=== PATIENT | female | born 1995 | race Caucasian/White ===

== ENCOUNTER 2022-12-26 15:07 | Inpatient (IN) ==
[2022-12-26] MEDS ORDERED: LABETALOL HCL IV 5 MG/ML 20ML IV STA ×5 (16:27→18:44)
[2022-12-26] MEDS ORDERED: LABETALOL HCL IV 5 MG/ML 20ML IV ONE (16:28)
--- NOTE | 2022-12-26 16:44 | History & Physical Report ---
Date of Service December 26, 2022 Assessment & Plan (1) Chronic hypertension affecting : Plan: superimposed now severe range bps. have begun iv labetalol trt. pt to be admitted. induction recommended. labs pending. no significant other sx at this time. when able will plan cx exam to determine mode of induction. pt aware and agreeable. (2) Gestational diabetes: Plan: bsg now and then in labor will eval more frequently. History of Present Illness Chief Complaint: elevated bps in office. Primary Care Provider: NO PCP 27yo at 37 6/7 wks glenis presents to L&D from office with elevated bps at her routine ob checkup in background of CHTN. On labetalol bid, no complaints in office but bp 160-180/100s. Sent for further evaluation here. Bps elevated here as well. Rec moving toward delivery. Labs drawn but not avail. Currently just started with mild NOYOLA. No ruq pain, no n/v, no worsening swelling. No rom, vb. +FM. No ctx. PNC c/b 1. CHTN, started labetalol 100mg bid in 3rd trimester, normal growth u/s 2. GDM--diet controlled. 3. LGSIL pap, colpo done x 2 suspect cin1, plan pp colpo 4. Rh neg 5. Velamentous Cord Insertion PNL rh pos, ri, gbs neg OBH: g1 GYNH: lgsil paps, no stds Allergies Allergy/AdvReac Type Severity Reaction Status Date / Time lactose Allergy Gastrointestinal Verified 12/26/22 15:45 Upset Home Medications Medication Instructions Recorded Confirmed Type prenat.vits,geovanna,ugt-oobl-jphco 1 tab PO DAILY 06/04/22 12/26/22 History aspirin [Baby Aspirin] 81 mg PO DAILY 08/07/22 12/26/22 History acetone (urine) test (Ketone Urine #50 ea 09/02/22 12/26/22 Rx Test strips) blood sugar diagnostic (OptMeduch #150 ea 09/02/22 12/26/22 Rx Verio test strips) blood-glucose meter (OptMeduch #1 ea 09/02/22 12/26/22 Rx Verio Reflect Meter) lancets 33 gauge (OneTouch Delica #150 ea 09/02/22 12/26/22 Rx Lancets) labetalol 100 mg tablet 100 mg PO BID #60 tabs 11/01/22 12/26/22 Rx labetalol PO 11/13/22 12/26/22 History Patient History Social History (Updated 06/04/22 @ 10:16 by Soila Latham) Smoking Status: Never smoker Tobacco Type: Cigarettes Cigarettes Per Day: 7; Second Hand Exposure: No; Do You Dip or Chew Tobacco: No; Tobacco Cessation Education Requested by Patient: No Hx Alcohol Use: No Hx Substance Use: No Preferred Language: Faroese Communication Ability: Effective 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 current occupational status: unemployed Other Information That Helps Us Care for You: No Feels Safe at Home: Yes Safety Concerns: Feels Safe At This Time Assistive Devices: None Review of Systems as per Subjective / HPI Physical Exam Constitutional: WD/WN, vitals as above Respiratory: normal respiratory effort, lungs clear to auscultation Cardiovascular: Rate/Rhythm: regular rate and regular rhythm Gastrointestinal (Abdomen): soft gravid nt no ruq pain, no epig tenderness. Musculoskeletal: no edema nontender calves Neurologic: grossly normal DTRs +1 no clonus Psychiatric: A+Ox3, euthymic affect Genitourinary: OB Exam Monitor Tracing: + external FHT monitor used, + e xternal uterine monitor used (irreg), + category I and + normal FHT variability Results & Data Vital Signs (Past 12 Hours) Vital Signs Temp Pulse Resp BP 12/26/22 15:28 98.4 F 20 12/26/22 16:22 98 H 12/26/22 16:22 195/106 H 12/26/22 16:18 101 H 12/26/22 16:18 183/104 H 12/26/22 15:55 92 H 12/26/22 15:55 182/93 H 12/26/22 15:54 93 H 12/26/22 15:54 198/110 H 12/26/22 15:30 98.1 F 12/26/22 15:23 108 H 164/105 H Coding Level of Care Code None Diagnoses Chronic hypertension affecting O10.919 Gestational diabetes O24.419
[2022-12-26] MEDS ORDERED: LIDOCAINE 1% LOCAL 20 ML VIAL INFIL PRN (16:52)
[2022-12-26] MEDS ORDERED: OXYTOCIN 30 UNITS/500 ML BAG IV PRN ×2 (16:52→17:58)
[2022-12-26 16:55] LABS: Basophils # (auto) 0.03 K/uL (0-0.2); Basophils % (auto) 0.3 %; Eosinophils # (auto) 0.08 K/uL (0-0.50); Eosinophils % (auto) 0.8 %; Hematocrit (blood only) 35.3 % (37.0-47.0); Hemoglobin 12.3 g/dl (12.0-16.0); Immature Granulocytes # (auto) 0.07 K/uL (0.01-0.20); Immature Granulocytes % (auto) 0.7 %; Lymphocytes # (auto) 1.85 K/uL (1.2-3.4); Lymphocytes % (auto) 17.9 %; Mean Corpuscular Hemoglobin 30.7 pg (25.0-34.0); Mean Corpuscular Hgb Conc 34.8 g/dL (32.0-36.0); Mean Platelet Volume 11.3 fL (9.4-12.4); Monocytes # (auto) 0.74 K/uL (0.11-0.59); Monocytes % (auto) 7.2 %; Neutrophils # (auto) 7.57 K/uL (1.40-6.50); Neutrophils % (auto) 73.1 %; Platelet Count 219 K/uL (130-400); RDW Coefficient of Variation 12.8 % (11.5-14.5); RDW Standard Deviation 40.9 fL (36.4-46.3); Red Blood Count 4.01 M/uL (4.20-5.40); White Blood Count 10.34 K/ul (4.8-10.8)
[2022-12-26 17:11] LABS: Albumin Globulin Ratio 1.1 (0.9-2); Albumin Level 3.5 gm/dl (3.4-5.0); BUN Creatinine Ratio 11.6 (10-20); Bilirubin,Total 0.2 mg/dl (0.2-1.0); Creatinine Clr Calc Pharmacy 149.3 ml/min; Est GFR (African American) 139.2 ml/min; Est GFR (Non-African American) 120.1 ml/min; Globulin 3.2 gm/dl (2.5-4.0); Potassium 3.6 mmol/L (3.5-5.1); Total Protein 6.7 gm/dl (6.0-8.3)
[2022-12-26 17:27] LABS: Creatinine Urine Random 28.3 mg/dl; Protein Creatinine Ratio Urine 2.7 (0-0.2)
[2022-12-26] MEDS ORDERED: MAG SULFATE 4GM BOLUS FROM BAG IV ONE (17:32)
[2022-12-26] MEDS ORDERED: MAGNESIUM SULFATE 40GM / WTR 1,000 ML BAG IV ONE (17:35)
[2022-12-26] MEDS: MAGNESIUM SULFATE / WTR 40 GM/1,000 ML BAG IV SCH (17:52)
--- NOTE | 2022-12-26 17:58 | Communication Note ---
Date of Service: December 26, 2022 Patient continues to require iv doses of labetalol. denies granger, visual change. labs reviewed. urine prot/cr ratio elevated and feel dx of superimposed preecla mpsia, severe is met and rec magnesium seizure prophylaxis. reviewed all with pt and partner. she does not want mendez yet and if able to void regularly bedpan/bedside will monitor that way. aware that mendez may be needed. cx is closed and high. had u/s today for her dvp and cephalic. nursing just getting magnesium going and will let me know when ready for mendez ripening balloon and pitocin also planned. fhts categ 1
[2022-12-26] MEDS ORDERED: LIDOCAINE 2% JELLY 5 ML TUBE EXT ONE (19:51)
--- NOTE | 2022-12-26 20:16 | Labor Progress Brief Note ---
Date of Service December 26, 2022 Subjective pt denied complaints. Assessment & Plan (1) Chronic hypertension with superimposed preeclampsia: (2) Gestational diabetes: (3) Encounter for induction of labor: Plan mendez has been placed for cx ripening and pitocin started. fhts categ 1. bps improved. magnesium sulfate iv for seizure prophylaxis. monitor urine output. Admission and Anticipated Discharge Date Admission Date: December 26, 2022 Physical Exam Constitutional: WD/WN, vitals as above Genitourinary: OB Exam Monitor Tracing: + external FHT monitor used, + external uterine monitor used, + category I and + normal FHT variability PROCEDURE: sse cx visualized, grasped on ant lip with ring forcep, mendez through os and balloon inflated with 40cc sterile water. Spec removed, mendez taped to leg. pt deja well. Results & Data Vital Signs (Past 12 Hours) Vital Signs Temp Pulse Resp BP Pulse Ox 12/26/22 19:09 98.2 F 18 12/26/22 19:09 18 12/26/22 18:49 84 177/84 H 12/26/22 18:00 16 12/26/22 17:44 83 174/95 H 12/26/22 15:28 98.4 F 20 12/26/22 20:08 99 12/26/22 20:08 81 12/26/22 20:03 99 12/26/22 20:03 79 12/26/22 19:58 99 12/26/22 19:58 81 12/26/22 19:53 99 12/26/22 19:53 77 12/26/22 19:48 99 12/26/22 19:48 68 12/26/22 19:43 99 12/26/22 19:43 78 12/26/22 19:38 100 12/26/22 19:38 81 12/26/22 19:33 99 12/26/22 19:33 68 12/26/22 19:28 99 12/26/22 19:28 96 H 12/26/22 19:23 99 12/26/22 19:23 82 12/26/22 19:22 78 12/26/22 19:22 135/74 12/26/22 19:18 99 12/26/22 19:18 79 12/26/22 19:13 98 12/26/22 19:13 82 12/26/22 19:08 98 06/29/23 19:08 91 H 12/26/22 19:03 98 12/26/22 19:03 84 12/26/22 18:58 97 12/26/22 18:58 83 12/26/22 18:53 98 12/26/22 18:53 85 12/26/22 18:48 99 12/26/22 18:48 83 12/26/22 18:43 98 12/26/22 18:43 83 12/26/22 18:40 88 12/26/22 18:40 177/84 H 12/26/22 18:38 98 12/26/22 18:38 89 12/26/22 18:33 98 12/26/22 18:33 84 12/26/22 18:28 99 12/26/22 18:28 90 12/26/22 18:23 99 12/26/22 18:23 98 H 12/26/22 18:18 99 12/26/22 18:18 104 H 12/26/22 18:13 99 12/26/22 18:13 93 H 12/26/22 18:08 98 12/26/22 18:08 96 H 12/26/22 18:03 99 12/26/22 18:03 82 12/26/22 18:04 82 12/26/22 18:04 167/92 H 12/26/22 17:58 99 12/26/22 17:58 97 H 12/26/22 17:54 92 H 12/26/22 17:54 191/103 H 12/26/22 17:53 99 12/26/22 17:53 83 12/26/22 17:48 98 12/26/22 17:48 83 12/26/22 17:42 83 12/26/22 17:42 174/95 H 12/26/22 17:30 87 12/26/22 17:30 174/100 H 12/26/22 17:08 88 12/26/22 17:08 175/79 H 12/26/22 17:01 88 12/26/22 17:01 181/88 H 12/26/22 16:56 93 H 12/26/22 16:56 191/91 H 12/26/22 16:48 95 H 12/26/22 16:48 216/113 H 12/26/22 16:38 98 H 12/26/22 16:38 235/119 H 12/26/22 16:22 98 H 12/26/22 16:22 195/106 H 12/26/22 16:18 101 H 12/26/22 16:18 183/104 H 12/26/22 15:55 92 H 12/26/22 15:55 182/93 H 12/26/22 15:54 93 H 12/26/22 15:54 198/110 H 12/26/22 15:30 98.1 F 12/26/22 15:23 108 H 164/105 H Coding Level of Care Code None Diagnoses Chronic hypertension with superimposed preeclampsia O11.9 Gestational diabetes O24.419 Encounter for induction of labor Z34.90 CPT Codes Misx Procedure Codes - 41710 Placement of cervical dilator: 97074 Placement of cervical dilator ([id number]) REVIEW ENGINEER Miscellaneous Codes Misx Procedure Codes 59015 Placement of cervical dilator
[2022-12-26] MEDS ORDERED: LIDOCAINE 2%/EPINEPHRINE 1:200,000 20 ML PF ONE (23:10)
[2022-12-26] MEDS ORDERED: BUPIVACAINE 0.25% PF 30 ML VIAL ONE (23:10)
[2022-12-26] MEDS ORDERED: SODIUM CHLORIDE 0.9% PF INJ 10 ML VIAL ONE (23:10)
[2022-12-26] MEDS ORDERED: fentaNYL citrate PF 100 MCG/2 ML VIAL ONE (23:10)
[2022-12-26] MEDS ORDERED: ePHEDrine sulfate 50 MG/ML AMP ONE (23:10)
[2022-12-26] MEDS ORDERED: fentaNYL 2MCG/ML ROPIVACAINE 1.25MG/ML 100 ML BAG EPI ONE (23:11)
[2022-12-26] MEDS ORDERED: ePHEDrine sulfate 50 MG/ML AMP IV PRN (23:39)
[2022-12-26] MEDS ORDERED: SODIUM CHLORIDE 0.9% PF INJ 10 ML VIAL EPI STA (23:39)
[2022-12-26] MEDS ORDERED: fentaNYL citrate PF 100 MCG/2 ML VIAL EPI PRN (23:39)
[2022-12-26] MEDS ORDERED: NALBUPHINE HCL INJ 10 MG/ML AMP IV PRN (23:39)
[2022-12-26] MEDS ORDERED: SODIUM CHLORIDE 0.9% PF INJ 10 ML VIAL EPI PRN (23:39)
[2022-12-26] MEDS ORDERED: BUPIVACAINE 0.25% PF 30 ML VIAL EPI STA (23:39)
[2022-12-26] MEDS ORDERED: NALOXONE HCL 1 MG in SODIUM CHLORIDE 0.9% 1000ML 1,000 ML IV PRN (23:39)
[2022-12-26] MEDS ORDERED: diphenhydrAMINE 50 MG/ML VIAL IV PRN (23:39)
[2022-12-26] MEDS ORDERED: BUPIVACAINE 0.25% PF 30 ML VIAL EPI PRN (23:39)
[2022-12-26] MEDS ORDERED: LIDOCAINE 2% MPF LOCAL 5 ML VIAL EPI PRN (23:39)
[2022-12-26] MEDS ORDERED: ONDANSETRON INJ 2 MG/ML 2 ML VIAL IV PRN (23:39)
[2022-12-26] MEDS ORDERED: NALOXONE HCL 0.4 MG/1 ML VIAL/CARP IV PRN (23:39)
[2022-12-26] MEDS ORDERED: LIDOCAINE 2%/EPINEPHRINE 1:200,000 20 ML PF EPI STA (23:39)
[2022-12-26] MEDS ORDERED: fentaNYL citrate PF 100 MCG/2 ML VIAL EPI STA (23:39)
[2022-12-26] MEDS ORDERED: ROPIVACAINE 0.5% PF 5 MG/ML 20 ML VIAL EPI PRN (23:39)
--- NOTE | 2022-12-26 23:39 | Anesthesiology Consultation ---
Date of Service December 26, 2022 Assessment & Plan ASA ASA3 Proposed Anesthesia Anesthesia Type: Labor Epidural Risk / Benefits Reviewed With: PT / POA / Parent / Guardian, Accepts Plan and Informed Consent Obtained History Height/Weight Height: 5 ft 4 in Weight: 109.316 kg Allergies Allergy/AdvReac Type Severity Reaction Status Date / Time lactose Allergy Gastrointestinal Verified 12/26/22 15:45 Upset Medications Home Medications Medication Instructions Recorded Confirmed Last Taken prenat.vits,geovanna,ikp-cegn-ajats 1 tab PO DAILY 06/04/22 12/26/22 12/26/22 08:00 aspirin [Baby Aspirin] 81 mg PO DAILY 08/07/22 12/26/22 12/26/22 08:00 acetone (urine) test (Ketone Urine #50 ea 09/02/22 12/26/22 Unknown Test strips) blood sugar diagnostic (OneTouch #150 ea 09/02/22 12/26/22 Unknown Verio test strips) blood-glucose meter (OneTouch #1 ea 09/02/22 12/26/22 Unknown Verio Reflect Meter) lancets 33 gauge (OneTouch Delica #150 ea 09/02/22 12/26/22 Unknown Lancets) labetalol 100 mg tablet 100 mg PO BID #60 tabs 11/01/22 12/26/22 12/26/22 08:00 labetalol PO 11/13/22 12/26/22 Unknown Active Medications Generic Name Dose Route Start Last Admin Trade Name Freq PRN Reason Stop Dose Admin Magnesium Sulfate 40 gm in 1,000 mls @ 50 mls/hr 12/26/22 17:45 12/26/22 19:00 Magnesium Sulfate / Wtr IV 01/25/23 17:44 50 mls/hr .Q20H NANCY Infusion Oxytocin 30 units in 500 mls @ 11 mls/hr 12/26/22 17:58 12/26/22 22:30 Pitocin IV 01/25/23 17:57 0.66 units/hr .Q24H PRN 11 mls/hr Labor Induction/Augmentation Titration Protocol 0.66 UNITS/HR Ropivacaine 100 ml 12/26/22 23:39 12/27/22 00:01 Fentanyl 2mcg/Ml Ropivacaine 1.25mg/Ml 100 Ml Bag EPI 12/27/22 23:38 100 mg PRN PRN Administration Pain R/T Labor Protocol Exercise / Class Metabolic Activity II 4-5 Yardwork/Stairs/Walk up hill Past Anesthesia History No Hx of Anesthesia Complications and No Family Hx of Anesthesia Complications History of PONV No Hx of PONV and No Hx of Motion Sickness Social History Smoking Status: Never smoker Smoking cigarettes per day: 7 Do You Dip or Chew Tobacco: No Hx Alcohol Use: No Hx Substance Use: No Review of Systems denies fever/cough/ colds/ chest pain/ SOB/ DAMIEN denies DAMIEN Physical Exam Vital Signs Last Vital Signs Temp 36.9 C 12/26/22 22:40 Pulse 94 H 12/27/22 00:09 Resp 20 12/26/22 23:15 BP 154/80 H 12/27/22 00:09 Pulse Ox 99 12/27/22 00:08 ENMT Mouth: no TMJ abnormality and no dentition abnormality Thyromental Distance: > or= 3.5 Finger Breadths Mallampati Class: II Neck neck extension not limited Respiratory normal respiratory effort; no respiratory distress Auscultation: lungs clear to auscultation bilaterally Cardiovascular Rate/Rhythm: regular rate and regular rhythm Neurologic moves all extremities Psychiatric Orientation: alert and oriented x 3 Testing Laboratory Results 12/26/22 16:25 12/26/22 16:25 12/27/22 12/26/22 12/26/22 00:09 21:09 17:16 POC Glucose Pending 89 130 H
[2022-12-26] MEDS: LACTATED RINGER'S 1,000 ML IV PRN (23:50)
[2022-12-27] MEDS: fentaNYL 2MCG/ML ROPIVACAINE 1.25MG/ML 100 ML BAG EPI PRN ×3 (00:01→11:24)
[2022-12-27] MEDS: LACTATED RINGER'S 1,000 ML IV PRN ×3 (00:41→11:49)
--- NOTE | 2022-12-27 01:19 | Labor Progress Brief Note ---
Date of Service December 27, 2022 Subjective comfortable in bed Assessment & Plan (1) Chronic hypertension with superimposed preeclampsia: (2) Encounter for induction of labor: (3) Gestational diabetes: Plan will restart pit after 30min of in utero resuscitation if stable. fhts categ 1. good cx change. use mvus of iupc to guide pitocin. pt and partner aware. bps have been stable. preeclampsia precautions reviewed. urine output noted. Admission and Anticipated Discharge Date Admission Date: December 26, 2022 Physical Exam Constitutional: WD/WN, vitals as above Psychiatric: A+Ox3, euthymic affect Genitourinary: Manual OB Exam: + cervical dilation 4 cm, + cervical effacement (75%), + station -2 and + amniotic fluid (arom ) clear OB Exam Monitor Tracing: + external FHT monitor used, + external uterine monitor used, + intra- uterine pressure catheter used (frequent ctx and decel noted, pit stopped. pos change and ivf bolus. ), + category I (early decels?) and + normal FHT variability fhts recovered to 130 mod variability, +scalp stim response and early decels. Results & Data Vital Signs (Past 12 Hours) Vital Signs Temp Pulse Resp BP Pulse Ox 12/27/22 00:30 18 12/26/22 23:15 20 12/26/22 22:15 18 12/26/22 21:15 16 12/26/22 20:10 20 12/26/22 19:09 98.2 F 18 12/26/22 19:09 18 12/26/22 18:49 84 177/84 H 12/26/22 18:00 16 12/26/22 17:44 83 174/95 H 12/26/22 15:28 98.4 F 20 12/27/22 01:08 93 H 98 12/27/22 01:03 109 H 98 12/27/22 01:04 117 H 140/88 12/27/22 00:58 93 H 98 12/27/22 00:53 97 H 98 12/27/22 00:48 94 H 99 12/27/22 00:46 92 H 136/63 12/27/22 00:43 97 H 99 12/27/22 00:42 99 H 136/66 12/27/22 00:38 101 H 99 12/27/22 00:36 102 H 121/64 12/27/22 00:33 104 H 99 12/27/22 00:31 99 H 120/57 L 12/27/22 00:28 100 H 99 12/27/22 00:26 108 H 126/68 12/27/22 00:23 107 H 99 12/27/22 00:21 95 H 125/58 L 12/27/22 00:18 103 H 100 12/27/22 00:16 96 H 135/65 12/27/22 00:13 89 98 12/27/22 00:11 90 149/78 H 12/27/22 00:08 97 H 99 12/27/22 00:09 94 H 154/80 H 12/27/22 00:07 88 142/77 H 12/27/22 00:05 85 133/71 12/27/22 00:03 98 12/27/22 00:03 93 H 12/27/22 00:03 88 138/78 12/27/22 00:00 85 133/70 12/26/22 23:58 99 12/26/22 23:58 89 12/26/22 23:53 98 12/26/22 23:53 84 12/26/22 23:48 99 12/26/22 23:48 97 H 12/26/22 23:43 99 12/26/22 23:43 102 H 12/26/22 23:38 99 12/26/22 23:38 96 H 12/26/22 23:33 99 12/26/22 23:33 97 H 12/26/22 23:31 88 12/26/22 23:31 143/77 H 12/26/22 23:28 99 12/26/22 23:28 90 12/26/22 23:23 100 12/26/22 23:23 94 H 12/26/22 23:18 99 12/26/22 23:18 86 12/26/22 23:13 99 12/26/22 23:13 90 12/26/22 23:08 99 12/26/22 23:08 90 12/26/22 23:03 99 12/26/22 23:03 89 12/26/22 22:58 99 12/26/22 22:58 89 12/26/22 22:53 99 12/26/22 22:53 87 12/26/22 22:48 99 12/26/22 22:48 92 H 12/26/22 22:43 98 12/26/22 22:43 88 12/26/22 22:40 98.4 F 12/26/22 22:38 99 12/26/22 22:38 88 12/26/22 22:33 98 12/26/22 22:33 87 12/26/22 22:33 88 12/26/22 22:33 144/79 H 12/26/22 22:28 98 12/26/22 22:28 91 H 12/26/22 22:23 99 12/26/22 22:23 92 H 12/26/22 22:18 98 12/26/22 22:18 95 H 12/26/22 22:13 98 12/26/22 22:13 93 H 12/26/22 22:08 98 12/26/22 22:08 87 12/26/22 22:03 98 12/26/22 22:03 88 12/26/22 21:58 99 12/26/22 21:58 88 12/26/22 21:53 98 12/26/22 21:53 96 H 12/26/22 21:48 98 12/26/22 21:48 94 H 12/26/22 21:43 99 12/26/22 21:43 101 H 12/26/22 21:38 99 12/26/22 21:38 92 H 12/26/22 21:33 98 12/26/22 21:33 93 H 12/26/22 21:31 90 12/26/22 21:31 142/82 H 12/26/22 21:28 99 12/26/22 21:28 86 12/26/22 21:23 98 12/26/22 21:23 96 H 12/26/22 21:18 99 12/26/22 21:18 91 H 12/26/22 21:13 99 12/26/22 21:13 88 12/26/22 21:08 99 12/26/22 21:08 92 H 12/26/22 21:03 99 12/26/22 21:03 90 12/26/22 20:58 99 12/26/22 20:58 95 H 12/26/22 20:53 100 12/26/22 20:53 84 12/26/22 20:48 99 12/26/22 20:48 95 H 12/26/22 20:43 100 12/26/22 20:43 89 12/26/22 20:38 99 12/26/22 20:38 86 12/26/22 20:33 99 12/26/22 20:33 90 12/26/22 20:28 99 12/26/22 20:28 80 12/26/22 20:23 99 12/26/22 20:23 85 12/26/22 20:22 81 12/26/22 20:22 128/68 12/26/22 20:18 99 12/26/22 20:18 80 12/26/22 20:13 99 12/26/22 20:13 81 12/26/22 20:08 99 12/26/22 20:08 81 12/26/22 20:03 99 12/26/22 20:03 79 12/26/22 19:58 99 12/26/22 19:58 81 12/26/22 19:53 99 12/26/22 19:53 77 12/26/22 19:48 99 12/26/22 19:48 68 12/26/22 19:43 99 12/26/22 19:43 78 12/26/22 19:38 100 12/26/22 19:38 81 12/26/22 19:33 99 12/26/22 19:33 68 12/26/22 19:28 99 12/26/22 19:28 96 H 12/26/22 19:23 99 12/26/22 19:23 82 12/26/22 19:22 78 12/26/22 19:22 135/74 12/26/22 19:18 99 12/26/22 19:18 79 12/26/22 19:13 98 12/26/22 19:13 82 12/26/22 19:08 98 12/26/22 19:08 91 H 12/26/22 19:03 98 12/26/22 19:03 84 12/26/22 18:58 97 12/26/22 18:58 83 12/26/22 18:53 98 12/26/22 18:53 85 12/26/22 18:48 99 12/26/22 18:48 83 12/26/22 18:43 98 12/26/22 18:43 83 12/26/22 18:40 88 12/26/22 18:40 177/84 H 12/26/22 18:38 98 12/26/22 18:38 89 12/26/22 18:33 98 12/26/22 18:33 84 12/26/22 18:28 99 12/26/22 18:28 90 12/26/22 18:23 99 12/26/22 18:23 98 H 12/26/22 18:18 99 12/26/22 18:18 104 H 12/26/22 18:13 99 12/26/22 18:13 93 H 12/26/22 18:08 98 12/26/22 18:08 96 H 12/26/22 18:03 99 12/26/22 18:03 82 12/26/22 18:04 82 12/26/22 18:04 167/92 H 12/26/22 17:58 99 12/26/22 17:58 97 H 12/26/22 17:54 92 H 12/26/22 17:54 191/103 H 12/26/22 17:53 99 12/26/22 17:53 83 12/26/22 17:48 98 12/26/22 17:48 83 12/26/22 17:42 83 12/26/22 17:42 174/95 H 12/26/22 17:30 87 12/26/22 17:30 174/100 H 12/26/22 17:08 88 12/26/22 17:08 175/79 H 12/26/22 17:01 88 12/26/22 17:01 181/88 H 12/26/22 16:56 93 H 12/26/22 16:56 191/91 H 12/26/22 16:48 95 H 12/26/22 16:48 216/113 H 12/26/22 16:38 98 H 12/26/22 16:38 235/119 H 12/26/22 16:22 98 H 12/26/22 16:22 195/106 H 12/26/22 16:18 101 H 12/26/22 16:18 183/104 H 12/26/22 15:55 92 H 12/26/22 15:55 182/93 H 12/26/22 15:54 93 H 12/26/22 15:54 198/110 H 12/26/22 15:30 98.1 F 12/26/22 15:23 108 H 164/105 H Coding Level of Care Code None Diagnoses Chronic hypertension with superimposed preeclampsia O11.9 Encounter for induction of labor Z34.90 Gestational diabetes O24.419
--- NOTE | 2022-12-27 04:16 | Communication Note ---
Date of Service: December 27, 2022 strip review fhts categ 1. mvus approaching 180 and pit at 7. bps normal.
[2022-12-27] MEDS ORDERED: LABETALOL HCL IV 5 MG/ML 20ML IV STA ×2 (05:23→07:44)
--- NOTE | 2022-12-27 06:56 | Communication Note ---
Date of Service: December 27, 2022 pain now rated 7/10 bilat lower abdomen. bolused 8ml of 0.5% bup in divided doses. vss. pain improved.
--- NOTE | 2022-12-27 07:19 | Labor Progress Brief Note ---
Date of Service December 27, 2022 Subjective comfortable. no pain. no granger or visual change that is persistent. Assessment & Plan (1) Chronic hypertension with superimposed preeclampsia: (2) Encounter for induction of labor: (3) Gestational diabetes: Plan inadeq mvu's, will recheck cx when adeq x 2hrs. fhts categ 1. c/w magnesium, c/w pit, good urine output. Admission and Anticipated Discharge Date Admission Date: December 26, 2022 Physical Exam Constitutional: WD/WN, vitals as above Genitourinary: Manual OB Exam: + cervical dilation 4 cm (per nurse) OB Exam Monitor Tracing: + external FHT monitor used, + intra-uterine pressure catheter used (inadequate mvu's pit at 7), + category I and + normal FHT variability Results & Data Vital Signs (Past 12 Hours) Vital Signs Temp Pulse Resp BP Pulse Ox 12/27/22 05:33 95 H 163/89 H 12/27/22 06:15 18 12/27/22 05:20 20 12/27/22 04:35 18 12/27/22 03:07 18 12/27/22 02:20 16 12/27/22 01:30 20 12/27/22 00:30 18 12/26/22 23:15 20 12/26/22 22:15 18 12/26/22 21:15 16 12/26/22 20:10 20 12/27/22 07:13 95 H 98 12/27/22 07:08 92 H 97 12/27/22 07:09 97 H 135/80 12/27/22 07:03 87 97 12/27/22 06:58 97 H 98 12/27/22 06:55 95 H 158/81 H 12/27/22 06:53 97 12/27/22 06:53 94 H 12/27/22 06:53 93 H 147/84 H 12/27/22 06:48 92 H 96 12/27/22 06:43 91 H 96 12/27/22 06:41 90 143/81 H 12/27/22 06:38 89 97 12/27/22 06:33 93 H 98 12/27/22 06:28 90 99 12/27/22 06:23 91 H 98 12/27/22 06:22 88 153/89 H 06/30/23 06:20 88 152/89 H 06/30/23 06:18 90 99 12/27/22 06:13 90 160/91 H 99 12/27/22 06:08 97 H 98 12/27/22 06:03 90 98 12/27/22 06:00 92 H 165/89 H 12/27/22 05:58 91 H 99 12/27/22 05:55 93 H 147/93 H 12/27/22 05:53 91 H 98 12/27/22 05:48 95 H 98 12/27/22 05:49 95 H 157/83 H 12/27/22 05:45 93 H 157/85 H 12/27/22 05:43 95 H 99 12/27/22 05:41 96 H 175/98 H 12/27/22 05:38 97 H 98 12/27/22 05:33 97 H 99 12/27/22 05:28 95 H 99 12/27/22 05:23 94 H 99 12/27/22 05:18 104 H 98 12/27/22 05:19 96 H 163/89 H 12/27/22 05:13 97 H 99 12/27/22 05:09 100 H 174/89 H 12/27/22 05:08 98 H 99 12/27/22 05:03 99 H 99 12/27/22 05:04 96 H 164/90 H 12/27/22 04:58 100 H 98 12/27/22 04:53 98 H 98 12/27/22 04:35 98.1 F 12/27/22 04:50 95 H 148/87 H 12/27/22 04:48 97 H 99 12/27/22 04:43 97 H 99 12/27/22 04:38 96 H 98 12/27/22 04:34 98 H 185/92 H 12/27/22 04:33 96 H 99 12/27/22 04:28 105 H 99 12/27/22 04:23 105 H 98 12/27/22 04:18 107 H 98 12/27/22 04:19 103 H 125/77 12/27/22 04:13 100 H 98 12/27/22 04:08 102 H 97 12/27/22 04:00 18 12/27/22 04:00 18 12/27/22 04:04 105 H 120/66 12/27/22 04:03 106 H 96 12/27/22 03:58 103 H 96 12/27/22 03:53 106 H 96 12/27/22 03:50 104 H 121/64 12/27/22 03:48 106 H 97 12/27/22 03:43 103 H 96 12/27/22 03:38 102 H 97 12/27/22 03:30 20 12/27/22 03:30 20 12/27/22 03:35 103 H 121/67 12/27/22 03:33 109 H 97 12/27/22 03:28 101 H 97 12/27/22 03:23 102 H 97 12/27/22 03:18 107 H 97 12/27/22 03:19 104 H 106/55 L 12/27/22 03:13 105 H 96 12/27/22 03:08 104 H 96 12/27/22 03:03 108 H 97 12/27/22 03:04 107 H 117/57 L 12/27/22 02:58 104 H 96 12/27/22 02:53 102 H 96 12/27/22 02:48 103 H 97 12/27/22 02:49 103 H 119/56 L 12/27/22 02:43 112 H 97 12/27/22 02:38 106 H 97 12/27/22 02:34 102 H 119/58 L 12/27/22 02:33 106 H 97 12/27/22 02:28 108 H 97 12/27/22 02:23 99 H 98 12/27/22 02:20 105 H 133/61 12/27/22 02:18 107 H 97 12/27/22 02:15 98.2 F 12/27/22 02:13 102 H 97 12/27/22 02:08 101 H 96 12/27/22 02:03 101 H 96 12/27/22 02:04 100 H 107/56 L 12/27/22 01:58 107 H 97 12/27/22 01:53 98 H 97 12/27/22 01:48 103 H 97 12/27/22 01:49 98 H 117/59 L 12/27/22 01:43 99 H 97 12/27/22 01:38 98 H 98 12/27/22 01:35 100 H 122/63 12/27/22 01:33 100 H 98 12/27/22 01:28 100 H 98 12/27/22 01:23 102 H 98 12/27/22 01:20 96 H 127/66 12/27/22 01:18 100 H 97 12/27/22 01:13 96 H 98 12/27/22 01:08 93 H 98 12/27/22 01:03 109 H 98 12/27/22 01:04 117 H 140/88 12/27/22 00:58 93 H 98 12/27/22 00:53 97 H 98 12/27/22 00:48 94 H 99 12/27/22 00:46 92 H 136/63 12/27/22 00:43 97 H 99 12/27/22 00:42 99 H 136/66 12/27/22 00:38 101 H 99 12/27/22 00:36 102 H 121/64 12/27/22 00:33 104 H 99 12/27/22 00:31 99 H 120/57 L 12/27/22 00:28 100 H 99 12/27/22 00:26 108 H 126/68 12/27/22 00:23 107 H 99 12/27/22 00:21 95 H 125/58 L 12/27/22 00:18 103 H 100 12/27/22 00:16 96 H 135/65 12/27/22 00:13 89 98 12/27/22 00:11 90 149/78 H 12/27/22 00:08 97 H 99 12/27/22 00:09 94 H 154/80 H 12/27/22 00:07 88 142/77 H 12/27/22 00:05 85 133/71 12/27/22 00:03 98 12/27/22 00:03 93 H 12/27/22 00:03 88 138/78 12/27/22 00:00 85 133/70 12/26/22 23:58 99 12/26/22 23:58 89 12/26/22 23:53 98 12/26/22 23:53 84 12/26/22 23:48 99 12/26/22 23:48 97 H 12/26/22 23:43 99 12/26/22 23:43 102 H 12/26/22 23:38 99 12/26/22 23:38 96 H 12/26/22 23:33 99 12/26/22 23:33 97 H 12/26/22 23:31 88 12/26/22 23:31 143/77 H 12/26/22 23:28 99 12/26/22 23:28 90 12/26/22 23:23 100 12/26/22 23:23 94 H 12/26/22 23:18 99 12/26/22 23:18 86 12/26/22 23:13 99 12/26/22 23:13 90 12/26/22 23:08 99 12/26/22 23:08 90 12/26/22 23:03 99 12/26/22 23:03 89 12/26/22 22:58 99 12/26/22 22:58 89 12/26/22 22:53 99 12/26/22 22:53 87 12/26/22 22:48 99 12/26/22 22:48 92 H 12/26/22 22:43 98 12/26/22 22:43 88 12/26/22 22:40 98.4 F 12/26/22 22:38 99 12/26/22 22:38 88 12/26/22 22:33 98 12/26/22 22:33 87 12/26/22 22:33 88 12/26/22 22:33 144/79 H 12/26/22 22:28 98 12/26/22 22:28 91 H 12/26/22 22:23 99 12/26/22 22:23 92 H 12/26/22 22:18 98 12/26/22 22:18 95 H 12/26/22 22:13 98 12/26/22 22:13 93 H 12/26/22 22:08 98 12/26/22 22:08 87 12/26/22 22:03 98 12/26/22 22:03 88 12/26/22 21:58 99 12/26/22 21:58 88 12/26/22 21:53 98 12/26/22 21:53 96 H 12/26/22 21:48 98 12/26/22 21:48 94 H 12/26/22 21:43 99 12/26/22 21:43 101 H 12/26/22 21:38 99 12/26/22 21:38 92 H 12/26/22 21:33 98 06/29/23 21:33 93 H 12/26/22 21:31 90 12/26/22 21:31 142/82 H 12/26/22 21:28 99 12/26/22 21:28 86 12/26/22 21:23 98 12/26/22 21:23 96 H 12/26/22 21:18 99 12/26/22 21:18 91 H 12/26/22 21:13 99 12/26/22 21:13 88 12/26/22 21:08 99 12/26/22 21:08 92 H 12/26/22 21:03 99 12/26/22 21:03 90 12/26/22 20:58 99 12/26/22 20:58 95 H 12/26/22 20:53 100 12/26/22 20:53 84 12/26/22 20:48 99 12/26/22 20:48 95 H 12/26/22 20:43 100 12/26/22 20:43 89 12/26/22 20:38 99 12/26/22 20:38 86 12/26/22 20:33 99 12/26/22 20:33 90 12/26/22 20:28 99 12/26/22 20:28 80 12/26/22 20:23 99 12/26/22 20:23 85 12/26/22 20:22 81 12/26/22 20:22 128/68 12/26/22 20:18 99 12/26/22 20:18 80 12/26/22 20:13 99 12/26/22 20:13 81 12/26/22 20:08 99 12/26/22 20:08 81 12/26/22 20:03 99 12/26/22 20:03 79 12/26/22 19:58 99 12/26/22 19:58 81 12/26/22 19:53 99 12/26/22 19:53 77 12/26/22 19:48 99 12/26/22 19:48 68 12/26/22 19:43 99 12/26/22 19:43 78 12/26/22 19:38 100 12/26/22 19:38 81 12/26/22 19:33 99 12/26/22 19:33 68 12/26/22 19:28 99 12/26/22 19:28 96 H 12/26/22 19:23 99 12/26/22 19:23 82 12/26/22 19:22 78 12/26/22 19:22 135/74 12/26/22 19:18 99 12/26/22 19:18 79 Coding Level of Care Code None Diagnoses Chronic hypertension with superimposed preeclampsia O11.9 Encounter for induction of labor Z34.90 Gestational diabetes O24.419
[2022-12-27] MEDS ORDERED: ACETAMINOPHEN 325 MG TAB PO ONE (07:44)
[2022-12-27] MEDS: MAGNESIUM SULFATE / WTR 40 GM/1,000 ML BAG IV SCH (08:07)
[2022-12-27] MEDS: LABETALOL HCL 200 MG TAB PO SCH ×2 (08:26→21:05)
[2022-12-27 09:38] LABS: Hematocrit (blood only) 35.5 % (37.0-47.0); Hemoglobin 12.2 g/dl (12.0-16.0); Mean Corpuscular Hemoglobin 30.3 pg (25.0-34.0); Mean Corpuscular Hgb Conc 34.4 g/dL (32.0-36.0); Mean Corpuscular Volume 88.1 fL (80.0-100.0); Mean Platelet Volume 11.2 fL (9.4-12.4); Platelet Count 211 K/uL (130-400); RDW Coefficient of Variation 13.2 % (11.5-14.5); RDW Standard Deviation 42.3 fL (36.4-46.3); Red Blood Count 4.03 M/uL (4.20-5.40); White Blood Count 15.19 K/ul (4.8-10.8)
[2022-12-27 09:39] LABS: Albumin Level 3.3 gm/dl (3.4-5.0); BUN Creatinine Ratio 10.4 (10-20); Bilirubin,Total 0.3 mg/dl (0.2-1.0); Calcium 7.4 mg/dl (8.6-10.3); Creatinine Clr Calc Pharmacy 153.8 ml/min; Est GFR (African American) 140.6 ml/min; Est GFR (Non-African American) 121.3 ml/min; Globulin 3.3 gm/dl (2.5-4.0); Magnesium Therapeutic L&D Only 4.9 mg/dL (4.0-8.0); Potassium 3.9 mmol/L (3.5-5.1); Total Protein 6.6 gm/dl (6.0-8.3)
--- NOTE | 2022-12-27 11:49 | Labor Progress Brief Note ---
Date of Service December 27, 2022 Patient has been managed by Dr. Gus soto and was induced for superimposed preeclampsia with severe features. While in a section for another patient it was noted that there were some late decelerations the Pitocin was stopped I have checked the patient she is 4 cm -2 station her heart rate tracing is now reactive and without deceleration however the contractions are less frequent I offered the patient the option of restarting the Pitocin and seeing if we can try and get her into active labor if the late decelerations keep persisting though we discussed that ultimately a section would be needed I did offer her now but I think it safe to try Pitocin again considering the situation this is what the patient prefers Assessment & Plan Admission and Anticipated Discharge Date Admission Date: December 26, 2022 Results & Data Vital Signs (Past 12 Hours) Vital Signs Temp Pulse Resp BP Pulse Ox 12/27/22 11:15 20 12/27/22 10:15 20 12/27/22 09:15 20 12/27/22 08:36 87 160/80 H 12/27/22 08:06 93 H 158/83 H 12/27/22 08:15 20 12/27/22 07:15 20 12/27/22 05:33 95 H 163/89 H 12/27/22 06:15 18 12/27/22 05:20 20 12/27/22 04:35 18 12/27/22 03:07 18 12/27/22 02:20 16 12/27/22 01:30 20 12/27/22 00:30 18 12/27/22 11:44 84 133/79 12/27/22 11:43 84 97 12/27/22 11:38 86 97 12/27/22 11:33 91 H 98 12/27/22 11:28 83 98 12/27/22 11:23 89 99 12/27/22 11:18 84 99 12/27/22 11:15 84 147/88 H 12/27/22 11:13 87 98 12/27/22 11:08 90 98 12/27/22 11:03 81 98 12/27/22 10:58 87 99 12/27/22 10:53 82 98 12/27/22 10:48 80 98 12/27/22 10:44 98.1 F 84 18 140/83 12/27/22 10:43 85 99 06/30/23 10:38 81 99 12/27/22 10:33 85 96 12/27/22 10:28 85 97 12/27/22 10:23 86 97 12/27/22 10:18 84 96 12/27/22 10:14 84 139/79 12/27/22 10:13 84 97 12/27/22 10:08 91 H 96 12/27/22 10:03 97 H 97 12/27/22 09:58 89 96 12/27/22 09:53 91 H 96 12/27/22 09:48 91 H 96 12/27/22 09:44 92 H 134/79 12/27/22 09:43 91 H 96 12/27/22 09:38 91 H 96 12/27/22 09:33 89 96 12/27/22 09:28 87 97 12/27/22 09:23 94 H 97 12/27/22 09:18 97 H 97 12/27/22 09:13 94 H 97 12/27/22 09:10 92 H 149/79 H 12/27/22 09:08 90 98 12/27/22 09:05 98.2 F 93 H 20 166/85 H 12/27/22 09:03 95 H 98 12/27/22 09:00 93 H 157/85 H 12/27/22 08:58 99 H 98 12/27/22 08:55 86 160/84 H 12/27/22 08:53 93 H 97 12/27/22 08:50 86 152/78 H 12/27/22 08:48 89 97 12/27/22 08:45 86 146/83 H 12/27/22 08:43 87 97 12/27/22 08:40 85 160/76 H 12/27/22 08:38 88 97 12/27/22 08:35 87 158/79 H 12/27/22 08:33 89 97 12/27/22 08:30 87 160/80 H 12/27/22 08:28 90 97 12/27/22 08:25 86 158/78 H 12/27/22 08:23 90 96 12/27/22 08:20 88 156/79 H 12/27/22 08:18 88 96 12/27/22 08:15 85 153/85 H 12/27/22 08:13 88 96 12/27/22 08:10 90 144/84 H 12/27/22 08:08 95 H 96 12/27/22 08:03 92 H 97 12/27/22 07:58 88 97 12/27/22 07:55 87 158/83 H 12/27/22 07:53 92 H 96 12/27/22 07:48 87 97 12/27/22 07:43 90 97 12/27/22 07:38 88 170/94 H 98 12/27/22 07:39 87 165/91 H 12/27/22 07:33 90 98 12/27/22 07:32 88 170/97 H 12/27/22 07:30 91 H 167/106 H 12/27/22 07:28 88 98 12/27/22 07:23 88 98 12/27/22 07:18 96 H 98 12/27/22 07:19 92 H 153/85 H 12/27/22 07:16 94 H 92 12/27/22 07:13 95 H 98 12/27/22 07:08 92 H 97 12/27/22 07:09 98.2 F 97 H 20 135/80 12/27/22 07:03 87 97 12/27/22 06:58 97 H 98 12/27/22 06:55 95 H 158/81 H 12/27/22 06:53 97 12/27/22 06:53 94 H 12/27/22 06:53 93 H 147/84 H 12/27/22 06:48 92 H 96 12/27/22 06:43 91 H 96 12/27/22 06:41 90 143/81 H 12/27/22 06:38 89 97 12/27/22 06:33 93 H 98 12/27/22 06:28 90 99 12/27/22 06:23 91 H 98 12/27/22 06:22 88 153/89 H 12/27/22 06:20 88 152/89 H 12/27/22 06:18 90 99 12/27/22 06:13 90 160/91 H 99 12/27/22 06:08 97 H 98 12/27/22 06:03 90 98 12/27/22 06:00 92 H 165/89 H 12/27/22 05:58 91 H 99 12/27/22 05:55 93 H 147/93 H 12/27/22 05:53 91 H 98 12/27/22 05:48 95 H 98 12/27/22 05:49 95 H 157/83 H 12/27/22 05:45 93 H 157/85 H 12/27/22 05:43 95 H 99 12/27/22 05:41 96 H 175/98 H 12/27/22 05:38 97 H 98 12/27/22 05:33 97 H 99 12/27/22 05:28 95 H 99 12/27/22 05:23 94 H 99 12/27/22 05:18 104 H 98 12/27/22 05:19 96 H 163/89 H 12/27/22 05:13 97 H 99 12/27/22 05:09 100 H 174/89 H 12/27/22 05:08 98 H 99 12/27/22 05:03 99 H 99 12/27/22 05:04 96 H 164/90 H 12/27/22 04:58 100 H 98 12/27/22 04:53 98 H 98 12/27/22 04:35 98.1 F 12/27/22 04:50 95 H 148/87 H 12/27/22 04:48 97 H 99 12/27/22 04:43 97 H 99 12/27/22 04:38 96 H 98 12/27/22 04:34 98 H 185/92 H 12/27/22 04:33 96 H 99 12/27/22 04:28 105 H 99 12/27/22 04:23 105 H 98 12/27/22 04:18 107 H 98 12/27/22 04:19 103 H 125/77 12/27/22 04:13 100 H 98 12/27/22 04:08 102 H 97 12/27/22 04:00 18 12/27/22 04:00 18 12/27/22 04:04 105 H 120/66 12/27/22 04:03 106 H 96 12/27/22 03:58 103 H 96 12/27/22 03:53 106 H 96 12/27/22 03:50 104 H 121/64 12/27/22 03:48 106 H 97 12/27/22 03:43 103 H 96 12/27/22 03:38 102 H 97 12/27/22 03:30 20 12/27/22 03:30 20 12/27/22 03:35 103 H 121/67 12/27/22 03:33 109 H 97 12/27/22 03:28 101 H 97 12/27/22 03:23 102 H 97 12/27/22 03:18 107 H 97 12/27/22 03:19 104 H 106/55 L 12/27/22 03:13 105 H 96 12/27/22 03:08 104 H 96 12/27/22 03:03 108 H 97 12/27/22 03:04 107 H 117/57 L 12/27/22 02:58 104 H 96 12/27/22 02:53 102 H 96 12/27/22 02:48 103 H 97 12/27/22 02:49 103 H 119/56 L 12/27/22 02:43 112 H 97 12/27/22 02:38 106 H 97 12/27/22 02:34 102 H 119/58 L 12/27/22 02:33 106 H 97 12/27/22 02:28 108 H 97 12/27/22 02:23 99 H 98 12/27/22 02:20 105 H 133/61 12/27/22 02:18 107 H 97 12/27/22 02:15 98.2 F 12/27/22 02:13 102 H 97 12/27/22 02:08 101 H 96 12/27/22 02:03 101 H 96 12/27/22 02:04 100 H 107/56 L 12/27/22 01:58 107 H 97 12/27/22 01:53 98 H 97 12/27/22 01:48 103 H 97 12/27/22 01:49 98 H 117/59 L 12/27/22 01:43 99 H 97 12/27/22 01:38 98 H 98 12/27/22 01:35 100 H 122/63 12/27/22 01:33 100 H 98 12/27/22 01:28 100 H 98 12/27/22 01:23 102 H 98 12/27/22 01:20 96 H 127/66 12/27/22 01:18 100 H 97 12/27/22 01:13 96 H 98 12/27/22 01:08 93 H 98 12/27/22 01:03 109 H 98 12/27/22 01:04 117 H 140/88 12/27/22 00:58 93 H 98 12/27/22 00:53 97 H 98 12/27/22 00:48 94 H 99 12/27/22 00:46 92 H 136/63 12/27/22 00:43 97 H 99 12/27/22 00:42 99 H 136/66 12/27/22 00:38 101 H 99 12/27/22 00:36 102 H 121/64 12/27/22 00:33 104 H 99 12/27/22 00:31 99 H 120/57 L 12/27/22 00:28 100 H 99 12/27/22 00:26 108 H 126/68 12/27/22 00:23 107 H 99 12/27/22 00:21 95 H 125/58 L 12/27/22 00:18 103 H 100 12/27/22 00:16 96 H 135/65 12/27/22 00:13 89 98 12/27/22 00:11 90 149/78 H 12/27/22 00:08 97 H 99 12/27/22 00:09 94 H 154/80 H 12/27/22 00:07 88 142/77 H 12/27/22 00:05 85 133/71 12/27/22 00:03 98 12/27/22 00:03 93 H 12/27/22 00:03 88 138/78 12/27/22 00:00 85 133/70 12/26/22 23:58 99 12/26/22 23:58 89 12/26/22 23:53 98 12/26/22 23:53 84 Coding Level of Care Code None Diagnoses
[2022-12-27] MEDS ORDERED: NURSING L&D Epidural Breakthrough Pain Update ONE (12:14)
[2022-12-27] MEDS ORDERED: OXYTOCIN 10 UNITS/ML VIAL ONE (12:31)
[2022-12-27] MEDS ORDERED: fentaNYL citrate PF 100 MCG/2 ML VIAL ONE (12:31)
[2022-12-27] MEDS ORDERED: PHENYLEPHRINE 100MCG/ML 5ML SYR ONE (12:31)
[2022-12-27] MEDS ORDERED: MoRPHine SULFATE PF 1 MG/ML 10 ML AMP/VIAL ONE (12:31)
[2022-12-27] MEDS ORDERED: ONDANSETRON INJ 2 MG/ML 2 ML VIAL ONE (12:31)
--- NOTE | 2022-12-27 12:31 | Labor Progress Brief Note ---
Date of Service December 27, 2022 Late D cells returned after the initiation of Pitocin and there were minimal contractions these are repetitive at this stage we will try to alleviate these but she is remote from delivery her cervix is unfavorable she has been induced since yesterday and now she is throwing persistently D cells with Pitocin I recommend we stop this some proceed to section the patient agrees we discussed increased infection risk was summary has been in labor for a long period of time with section. The patient was counseled to the nature of the procedure including alternatives such as labor. Risks were discussed including bleeding infection injury to bowel bladder ureter vessels and even baby. Deep Vein thrombosis, pulmonary embolus discussed. Breakdown of incision reviewed. Deep vein thrombosis pulmonary embolus hernia and failure of the incision to heal were discussed Patient verbalized understanding of this and was given ample time to ask questions Assessment & Plan Admission and Anticipated Discharge Date Admission Date: December 26, 2022 Results & Data Vital Signs (Past 12 Hours) Vital Signs Temp Pulse Resp BP Pulse Ox 12/27/22 11:15 20 12/27/22 12:15 20 12/27/22 10:15 20 12/27/22 09:15 20 12/27/22 08:36 87 160/80 H 12/27/22 08:06 93 H 158/83 H 12/27/22 08:15 20 12/27/22 07:15 20 12/27/22 05:33 95 H 163/89 H 12/27/22 06:15 18 12/27/22 05:20 20 12/27/22 04:35 18 12/27/22 03:07 18 12/27/22 02:20 16 12/27/22 01:30 20 12/27/22 12:28 89 97 12/27/22 12:27 86 94 12/27/22 12:23 81 96 12/27/22 12:18 81 94 12/27/22 12:14 82 120/68 12/27/22 12:13 79 95 12/27/22 12:08 83 95 12/27/22 12:03 84 96 12/27/22 11:58 84 96 12/27/22 11:53 82 96 12/27/22 11:48 83 97 12/27/22 11:44 84 133/79 12/27/22 11:43 84 97 12/27/22 11:38 86 97 12/27/22 11:33 91 H 98 12/27/22 11:28 83 98 12/27/22 11:23 89 99 12/27/22 11:18 84 99 12/27/22 11:15 84 147/88 H 12/27/22 11:13 87 98 12/27/22 11:08 90 98 12/27/22 11:03 81 98 12/27/22 10:58 87 99 12/27/22 10:53 82 98 12/27/22 10:48 80 98 12/27/22 10:44 98.1 F 84 18 140/83 12/27/22 10:43 85 99 12/27/22 10:38 81 99 12/27/22 10:33 85 96 12/27/22 10:28 85 97 12/27/22 10:23 86 97 12/27/22 10:18 84 96 12/27/22 10:14 84 139/79 12/27/22 10:13 84 97 12/27/22 10:08 91 H 96 12/27/22 10:03 97 H 97 12/27/22 09:58 89 96 12/27/22 09:53 91 H 96 12/27/22 09:48 91 H 96 12/27/22 09:44 92 H 134/79 12/27/22 09:43 91 H 96 12/27/22 09:38 91 H 96 12/27/22 09:33 89 96 12/27/22 09:28 87 97 12/27/22 09:23 94 H 97 12/27/22 09:18 97 H 97 12/27/22 09:13 94 H 97 12/27/22 09:10 92 H 149/79 H 12/27/22 09:08 90 98 12/27/22 09:05 98.2 F 93 H 20 166/85 H 12/27/22 09:03 95 H 98 12/27/22 09:00 93 H 157/85 H 12/27/22 08:58 99 H 98 12/27/22 08:55 86 160/84 H 12/27/22 08:53 93 H 97 12/27/22 08:50 86 152/78 H 12/27/22 08:48 89 97 12/27/22 08:45 86 146/83 H 12/27/22 08:43 87 97 12/27/22 08:40 85 160/76 H 12/27/22 08:38 88 97 12/27/22 08:35 87 158/79 H 12/27/22 08:33 89 97 12/27/22 08:30 87 160/80 H 12/27/22 08:28 90 97 12/27/22 08:25 86 158/78 H 12/27/22 08:23 90 96 12/27/22 08:20 88 156/79 H 12/27/22 08:18 88 96 12/27/22 08:15 85 153/85 H 12/27/22 08:13 88 96 12/27/22 08:10 90 144/84 H 12/27/22 08:08 95 H 96 12/27/22 08:03 92 H 97 12/27/22 07:58 88 97 12/27/22 07:55 87 158/83 H 12/27/22 07:53 92 H 96 12/27/22 07:48 87 97 12/27/22 07:43 90 97 12/27/22 07:38 88 170/94 H 98 12/27/22 07:39 87 165/91 H 12/27/22 07:33 90 98 12/27/22 07:32 88 170/97 H 12/27/22 07:30 91 H 167/106 H 12/27/22 07:28 88 98 12/27/22 07:23 88 98 12/27/22 07:18 96 H 98 12/27/22 07:19 92 H 153/85 H 12/27/22 07:16 94 H 92 12/27/22 07:13 95 H 98 12/27/22 07:08 92 H 97 12/27/22 07:09 98.2 F 97 H 20 135/80 12/27/22 07:03 87 97 12/27/22 06:58 97 H 98 12/27/22 06:55 95 H 158/81 H 12/27/22 06:53 97 12/27/22 06:53 94 H 12/27/22 06:53 93 H 147/84 H 12/27/22 06:48 92 H 96 12/27/22 06:43 91 H 96 12/27/22 06:41 90 143/81 H 12/27/22 06:38 89 97 12/27/22 06:33 93 H 98 12/27/22 06:28 90 99 12/27/22 06:23 91 H 98 12/27/22 06:22 88 153/89 H 12/27/22 06:20 88 152/89 H 12/27/22 06:18 90 99 12/27/22 06:13 90 160/91 H 99 12/27/22 06:08 97 H 98 12/27/22 06:03 90 98 12/27/22 06:00 92 H 165/89 H 12/27/22 05:58 91 H 99 12/27/22 05:55 93 H 147/93 H 12/27/22 05:53 91 H 98 12/27/22 05:48 95 H 98 12/27/22 05:49 95 H 157/83 H 12/27/22 05:45 93 H 157/85 H 12/27/22 05:43 95 H 99 12/27/22 05:41 96 H 175/98 H 12/27/22 05:38 97 H 98 12/27/22 05:33 97 H 99 12/27/22 05:28 95 H 99 12/27/22 05:23 94 H 99 12/27/22 05:18 104 H 98 12/27/22 05:19 96 H 163/89 H 12/27/22 05:13 97 H 99 12/27/22 05:09 100 H 174/89 H 12/27/22 05:08 98 H 99 12/27/22 05:03 99 H 99 12/27/22 05:04 96 H 164/90 H 12/27/22 04:58 100 H 98 12/27/22 04:53 98 H 98 12/27/22 04:35 98.1 F 12/27/22 04:50 95 H 148/87 H 12/27/22 04:48 97 H 99 12/27/22 04:43 97 H 99 12/27/22 04:38 96 H 98 12/27/22 04:34 98 H 185/92 H 12/27/22 04:33 96 H 99 12/27/22 04:28 105 H 99 12/27/22 04:23 105 H 98 12/27/22 04:18 107 H 98 06/30/23 04:19 103 H 125/77 06/30/23 04:13 100 H 98 12/27/22 04:08 102 H 97 12/27/22 04:00 18 12/27/22 04:00 18 12/27/22 04:04 105 H 120/66 12/27/22 04:03 106 H 96 12/27/22 03:58 103 H 96 12/27/22 03:53 106 H 96 12/27/22 03:50 104 H 121/64 12/27/22 03:48 106 H 97 12/27/22 03:43 103 H 96 12/27/22 03:38 102 H 97 12/27/22 03:30 20 12/27/22 03:30 20 12/27/22 03:35 103 H 121/67 12/27/22 03:33 109 H 97 12/27/22 03:28 101 H 97 12/27/22 03:23 102 H 97 12/27/22 03:18 107 H 97 12/27/22 03:19 104 H 106/55 L 12/27/22 03:13 105 H 96 12/27/22 03:08 104 H 96 12/27/22 03:03 108 H 97 12/27/22 03:04 107 H 117/57 L 12/27/22 02:58 104 H 96 12/27/22 02:53 102 H 96 12/27/22 02:48 103 H 97 12/27/22 02:49 103 H 119/56 L 12/27/22 02:43 112 H 97 12/27/22 02:38 106 H 97 12/27/22 02:34 102 H 119/58 L 12/27/22 02:33 106 H 97 12/27/22 02:28 108 H 97 12/27/22 02:23 99 H 98 12/27/22 02:20 105 H 133/61 12/27/22 02:18 107 H 97 12/27/22 02:15 98.2 F 12/27/22 02:13 102 H 97 12/27/22 02:08 101 H 96 12/27/22 02:03 101 H 96 12/27/22 02:04 100 H 107/56 L 12/27/22 01:58 107 H 97 12/27/22 01:53 98 H 97 12/27/22 01:48 103 H 97 06/30/23 01:49 98 H 117/59 L 12/27/22 01:43 99 H 97 12/27/22 01:38 98 H 98 12/27/22 01:35 100 H 122/63 12/27/22 01:33 100 H 98 12/27/22 01:28 100 H 98 12/27/22 01:23 102 H 98 12/27/22 01:20 96 H 127/66 12/27/22 01:18 100 H 97 12/27/22 01:13 96 H 98 12/27/22 01:08 93 H 98 12/27/22 01:03 109 H 98 12/27/22 01:04 117 H 140/88 12/27/22 00:58 93 H 98 12/27/22 00:53 97 H 98 12/27/22 00:48 94 H 99 12/27/22 00:46 92 H 136/63 12/27/22 00:43 97 H 99 12/27/22 00:42 99 H 136/66 12/27/22 00:38 101 H 99 12/27/22 00:36 102 H 121/64 12/27/22 00:33 104 H 99 12/27/22 00:31 99 H 120/57 L Coding Level of Care Code None Diagnoses
[2022-12-27] MEDS ORDERED: NALOXONE HCL 1 MG in SODIUM CHLORIDE 0.9% 1000ML 1,000 ML IV PRN (13:35)
[2022-12-27] MEDS ORDERED: diphenhydrAMINE 50 MG/ML VIAL IV PRN (13:35)
[2022-12-27] MEDS ORDERED: HYDROmorphone INJ 0.5 MG/0.5 ML SYR IV PRN (13:35)
[2022-12-27] MEDS ORDERED: PROMETHAZINE HCL 6.25 MG in SODIUM CHLORIDE 0.9% 50 ML IV PRN (13:35)
[2022-12-27] MEDS ORDERED: LACTATED RINGER'S 500 ML IV PRN (13:35)
[2022-12-27] MEDS ORDERED: MoRPHine SULFATE PF 1 MG/ML 10 ML AMP/VIAL EPI ONE (13:35)
[2022-12-27] MEDS ORDERED: NALBUPHINE HCL INJ 10 MG/ML AMP IV PRN (13:35)
[2022-12-27] MEDS ORDERED: NALOXONE HCL 0.4 MG/1 ML VIAL/CARP IV PRN (13:35)
[2022-12-27] MEDS ORDERED: ePHEDrine sulfate 50 MG/ML AMP IV PRN (13:35)
[2022-12-27] MEDS ORDERED: ONDANSETRON INJ 2 MG/ML 2 ML VIAL IV PRN (13:35)
[2022-12-27] MEDS ORDERED: NALOXONE HCL 0.08 MG in SYRINGE 1.8 ML IV PRN (13:35)
[2022-12-27] MEDS ORDERED: LIDOCAINE 2%/EPINEPHRINE 1:200,000 20 ML PF ONE (13:39)
[2022-12-27] MEDS ORDERED: NO NARCOTICS OR SEDATIVES SCH (13:45)
[2022-12-27] MEDS ORDERED: DC INTRASPINAL MORPHINE SCH (13:45)
[2022-12-27] MEDS ORDERED: SODIUM CHLORIDE 0.9% 1000ML 1,000 ML IV SCH (13:45)
[2022-12-27 13:57] LABS: Base Excess Cord Arterial Bld -1.7 mEq/L (-9-1.8); CO2 Cord Arterial Blood 61 mmHg (39.1-73.5); HCO3 Cord Arterial Blood 27 mmol/L (19.7-28.5); Oxygen Sat Cord Arterial Blood < 60.0 % (<60); PO2 Cord Arterial Blood 9 mmHg (4.1-31.7); pH Cord Arterial Blood 7.25 (7.1-7.38)
[2022-12-27 13:58] LABS: Base Excess Cord Venous Blood -2.2 mEq/L (-7.7-1.9); Cord Venous Blood HCO3 23 mmol/L (18.4-26.8); Cord Venous Blood PCO2 41 mmHg (30.4-57.2); Cord Venous Blood PO2 36 mmHg (14.1-43.3); Cord Venous Blood pH 7.36 (7.20-7.44); O2 Saturation Cord Venous Bld 66.6 % (<68)
--- NOTE | 2022-12-27 13:58 | Operative Report ---
PG Post Operative Report Pre & Post Diagnosis Operation Date: 12/27/22 12:50 Pre-Op Diagnosis: intolerance to labor Pre-eclampia with severe features Post-Op Diagnosis: Same as pre-op I identified the patient and participated in the time-out.: Yes Procedure Operation Date: 12/27/22 12:50 Actual Procedures p Primary Section in LD; Live male child at 1330(Bilateral) - Ran Jerez MD, FACOG Surgeon Ran Jerez MD, FACOG Cotton Dispatcher Dr. Silva Estimated Blood Loss 600 Findings Consistent with Post-Op Diagnosis Specimens Cord gases Cord blood Description of Procedure Regional anesthetic had been given by anesthesia patient was prepped and draped with a leftward tilt preoperative antibiotics had been given in appropriate timing by anesthesiology. Once the prep was allowed to fully dry timeout was performed. Pickups with teeth were used to test the incision area was found to be adequate for incision as the patient did not feel sharp pain. Scalpel was used to make a Pfannenstiel incision on the lower abdomen. We then cut through the subcutaneous fat down to the level of the anterior rectus sheath fascia this was cut in the midline and then extended laterally with the curved Pimentel scissors. At this stage we then placed 2 Gretta clamps on the anterior aspect of the fascia. Using the curved Pimentel's we are able to dissect the fascia superiorly away from the rectus muscles. Care was taken to maintain hemostasis. Gretta clamps were then placed to the inferior aspect of the anterior sheath of the fascia. Fascia was then dissected away from the rectus muscles inferiorly towards the pubic bone. A Gretta was then placed in the midline both inferiorly and superiorly. This was to allow exposure by retraction rectus muscles were in the midline with were then able to cut through the peritoneum and then enter the peritoneal cavity. Opening was enlarged to allow exposure of the peritoneal cavity both superiorly and inferiorly. Once adequate space was obtained a bladder retractor was placed to expose the lower segment Metzenbaums were used to dissect the b ladder flap inferiorly away from the uterus. This was done sharply bladder retractor was then repositioned to expose the lower segment of the uterus Fresh scalpel was used to make a low transverse incision on the uterus. Uterus was then entered bluntly with the operators finger, membranes ruptured and the opening was enlarged using the operators fingers bluntly pulling superiorly and inferiorly to allow exposure. Baby was delivered by first flexion of the head elevation of the head out of the pelvis and then pressure by the maintenance assistant on the maternal abdomen. Baby's head was then delivered mouth and then nares were suctioned and then using gentle traction the baby was fully delivered. Live vigorous infant. Fluid was clear cord clamped and cut cord gases obtained cord blood obtained baby handed to pediatrics. Placenta removed was removed with traction we ensure the entire placenta was removed with a moist lap sponge into the uterus Uterus was examined there was a very small anterior subserosal fibroid on the fundus less than 2 cm the adnexa were completely normal Note there was baby was in occiput posterior position there was no nuchal cord Uterus was then exteriorized. IV Pitocin had been started by anesthesia tone improved there were no extensions the uterus was then closed using 0 Monocryl in a 2 layer closure the first layer closed in a running locked fashion from left to right and then a second closure from left to right in a running nonlocked fashion. At this stage hemostasis was excellent. Uterus was placed back in the peritoneal cavity with suction irrigation out and inspection of the uterus at this stage revealed excellent hemostasis Retractors were removed urine color was clear at this stage of the case we inspected the rectus muscles they were hemostatic fascia was closed with 0 Vicryl subcutaneous fat was irrigated and closed with 3-0 Vicryl skin closed with 4-0 subcuticular Monocryl I attest to the content of the Intraoperative Record and any orders documented therein. Any exceptions are noted below. OB Procedure Charges 29103
[2022-12-27] MEDS ORDERED: DIPHTHERIA/TETANUS/PERTUSSIS Vaccine (Tdap, Age 7+yrs) 0.5mL SYR/VL IM ONE (14:39)
[2022-12-27] MEDS ORDERED: BENZOCAINE 20% AER SPR 82.5 GM CAN EXT PRN (14:39)
[2022-12-27] MEDS ORDERED: MAGNESIUM HYDROXIDE SUSP 30 ML UDC PO PRN (14:39)
[2022-12-27] MEDS ORDERED: HYDROCORTISONE ACETATE 25 MG SUPP PR PRN (14:39)
[2022-12-27] MEDS ORDERED: SENNA 8.6 MG TAB PO PRN (14:39)
[2022-12-27] MEDS ORDERED: LACTATED RINGER'S 1,000 ML IV SCH (14:39)
--- NOTE | 2022-12-27 15:45 | Anesthesia Procedure Note ---
Date of Service December 27, 2022 Anesthesia Post Epidural Note Vital Signs Vital Signs: Temp Pulse Resp BP Pulse Ox 36.6 C 85 20 149/97 H 97 12/27/22 15:10 12/27/22 15:41 12/27/22 15:40 12/27/22 15:36 12/27/22 15:41 Pain Intensity Abdomen: Pain Intensity: 0 Notes Mental Status: alert / awake / arousable and participated in evaluation Patient Amnestic to Procedure: No Nausea / Vomiting: adequately controlled Pain: adequately controlled Airway Patency, RR, SpO2: stable & adequate BP & HR: stable & adequate Hydration State: stable & adequate Neuraxial Anesthesia: was administered and sensory block is resolving Anesthetic Complications: no major complications apparent and Pt Satisfied with anesthetic care Epidural: Removed without complications and With tip intact
--- NOTE | 2022-12-27 15:46 | Anesthesiology Progress Note ---
Date of Service December 27, 2022 Anesthesia Post Procedure Vital Signs Vital Signs: Temp Pulse Resp BP Pulse Ox 12/27/22 15:40 20 12/27/22 15:10 36.6 C 20 12/27/22 13:00 20 12/27/22 15:00 79 20 98 12/27/22 14:50 20 12/27/22 14:40 82 20 143/85 H 97 12/27/22 14:10 36.6 C 20 12/27/22 11:15 20 12/27/22 12:15 20 12/27/22 10:15 20 12/27/22 09:15 20 12/27/22 08:36 87 160/80 H 12/27/22 08:06 93 H 158/83 H 12/27/22 08:15 20 12/27/22 07:15 20 12/27/22 05:33 95 H 163/89 H 12/27/22 06:15 18 12/27/22 05:20 20 12/27/22 04:35 18 12/27/22 03:07 18 12/27/22 02:20 16 12/27/22 01:30 20 12/27/22 00:30 18 12/26/22 23:15 20 12/26/22 22:15 18 12/26/22 21:15 16 12/26/22 20:10 20 12/26/22 19:09 36.8 C 18 12/26/22 19:09 18 12/26/22 18:49 84 177/84 H 12/26/22 18:00 16 12/26/22 17:44 83 174/95 H 12/27/22 15:41 85 97 12/27/22 15:36 84 149/97 H 98 12/27/22 15:31 83 98 12/27/22 15:26 88 97 12/27/22 15:21 73 97 12/27/22 15:16 98 12/27/22 15:16 74 12/27/22 15:16 76 138/75 12/27/22 15:11 78 98 12/27/22 15:06 76 136/72 98 12/27/22 15:01 98 12/27/22 15:01 79 12/27/22 15:01 81 92 12/27/22 14:56 78 152/90 H 98 12/27/22 14:51 81 98 12/27/22 14:46 98 12/27/22 14:46 83 12/27/22 14:46 83 145/88 H 12/27/22 14:41 80 98 12/27/22 14:36 82 143/85 H 97 12/27/22 14:31 76 97 12/27/22 14:26 75 132/77 97 12/27/22 14:21 80 98 12/27/22 14:16 73 98 12/27/22 14:11 81 97 12/27/22 14:06 79 97 12/27/22 14:05 78 121/70 12/27/22 13:03 86 97 12/27/22 12:58 87 98 12/27/22 12:53 87 99 12/27/22 12:48 92 H 99 12/27/22 12:43 85 98 12/27/22 12:44 85 140/87 12/27/22 12:38 83 97 12/27/22 12:33 86 97 12/27/22 12:28 89 97 12/27/22 12:27 86 94 12/27/22 12:23 81 96 12/27/22 12:18 81 94 12/27/22 12:14 82 20 120/68 12/27/22 12:13 79 95 12/27/22 12:08 83 95 12/27/22 12:03 84 96 12/27/22 11:58 84 96 12/27/22 11:53 82 96 12/27/22 11:48 83 97 12/27/22 11:44 84 133/79 12/27/22 11:43 84 97 12/27/22 11:38 86 97 12/27/22 11:33 91 H 98 12/27/22 11:28 83 98 12/27/22 11:23 89 99 12/27/22 11:18 84 99 12/27/22 11:15 84 147/88 H 12/27/22 11:13 87 98 12/27/22 11:08 90 98 12/27/22 11:03 81 98 12/27/22 10:58 87 99 12/27/22 10:53 82 98 12/27/22 10:48 80 98 12/27/22 10:44 36.7 C 84 18 140/83 12/27/22 10:43 85 99 12/27/22 10:38 81 99 12/27/22 10:33 85 96 12/27/22 10:28 85 97 12/27/22 10:23 86 97 12/27/22 10:18 84 96 12/27/22 10:14 84 139/79 12/27/22 10:13 84 97 12/27/22 10:08 91 H 96 12/27/22 10:03 97 H 97 12/27/22 09:58 89 96 12/27/22 09:53 91 H 96 12/27/22 09:48 91 H 96 12/27/22 09:44 92 H 134/79 12/27/22 09:43 91 H 96 12/27/22 09:38 91 H 96 12/27/22 09:33 89 96 12/27/22 09:28 87 97 12/27/22 09:23 94 H 97 12/27/22 09:18 97 H 97 12/27/22 09:13 94 H 97 12/27/22 09:10 92 H 149/79 H 12/27/22 09:08 90 98 12/27/22 09:05 36.8 C 93 H 20 166/85 H 12/27/22 09:03 95 H 98 12/27/22 09:00 93 H 157/85 H 12/27/22 08:58 99 H 98 12/27/22 08:55 86 160/84 H 12/27/22 08:53 93 H 97 12/27/22 08:50 86 152/78 H 12/27/22 08:48 89 97 12/27/22 08:45 86 146/83 H 12/27/22 08:43 87 97 12/27/22 08:40 85 160/76 H 12/27/22 08:38 88 97 12/27/22 08:35 87 158/79 H 12/27/22 08:33 89 97 12/27/22 08:30 87 160/80 H 12/27/22 08:28 90 97 12/27/22 08:25 86 158/78 H 12/27/22 08:23 90 96 12/27/22 08:20 88 156/79 H 12/27/22 08:18 88 96 12/27/22 08:15 85 153/85 H 12/27/22 08:13 88 96 12/27/22 08:10 90 144/84 H 12/27/22 08:08 95 H 96 12/27/22 08:03 92 H 97 12/27/22 07:58 88 97 12/27/22 07:55 87 158/83 H 12/27/22 07:53 92 H 96 12/27/22 07:48 87 97 12/27/22 07:43 90 97 12/27/22 07:38 88 170/94 H 98 12/27/22 07:39 87 165/91 H 12/27/22 07:33 90 98 12/27/22 07:32 88 170/97 H 12/27/22 07:30 91 H 167/106 H 12/27/22 07:28 88 98 12/27/22 07:23 88 98 12/27/22 07:18 96 H 98 12/27/22 07:19 92 H 153/85 H 12/27/22 07:16 94 H 92 12/27/22 07:13 95 H 98 12/27/22 07:08 92 H 97 12/27/22 07:09 36.8 C 97 H 20 135/80 12/27/22 07:03 87 97 12/27/22 06:58 97 H 98 12/27/22 06:55 95 H 158/81 H 12/27/22 06:53 97 12/27/22 06:53 94 H 12/27/22 06:53 93 H 147/84 H 12/27/22 06:48 92 H 96 12/27/22 06:43 91 H 96 12/27/22 06:41 90 143/81 H 12/27/22 06:38 89 97 12/27/22 06:33 93 H 98 12/27/22 06:28 90 99 12/27/22 06:23 91 H 98 12/27/22 06:22 88 153/89 H 12/27/22 06:20 88 152/89 H 12/27/22 06:18 90 99 12/27/22 06:13 90 160/91 H 99 12/27/22 06:08 97 H 98 12/27/22 06:03 90 98 12/27/22 06:00 92 H 165/89 H 12/27/22 05:58 91 H 99 12/27/22 05:55 93 H 147/93 H 12/27/22 05:53 91 H 98 12/27/22 05:48 95 H 98 12/27/22 05:49 95 H 157/83 H 12/27/22 05:45 93 H 157/85 H 12/27/22 05:43 95 H 99 12/27/22 05:41 96 H 175/98 H 12/27/22 05:38 97 H 98 12/27/22 05:33 97 H 99 12/27/22 05:28 95 H 99 12/27/22 05:23 94 H 99 12/27/22 05:18 104 H 98 12/27/22 05:19 96 H 163/89 H 12/27/22 05:13 97 H 99 12/27/22 05:09 100 H 174/89 H 12/27/22 05:08 98 H 99 12/27/22 05:03 99 H 99 12/27/22 05:04 96 H 164/90 H 12/27/22 04:58 100 H 98 12/27/22 04:53 98 H 98 12/27/22 04:35 36.7 C 12/27/22 04:50 95 H 148/87 H 12/27/22 04:48 97 H 99 12/27/22 04:43 97 H 99 12/27/22 04:38 96 H 98 12/27/22 04:34 98 H 185/92 H 12/27/22 04:33 96 H 99 12/27/22 04:28 105 H 99 12/27/22 04:23 105 H 98 12/27/22 04:18 107 H 98 12/27/22 04:19 103 H 125/77 12/27/22 04:13 100 H 98 12/27/22 04:08 102 H 97 12/27/22 04:00 18 12/27/22 04:00 18 12/27/22 04:04 105 H 120/66 12/27/22 04:03 106 H 96 12/27/22 03:58 103 H 96 12/27/22 03:53 106 H 96 12/27/22 03:50 104 H 121/64 12/27/22 03:48 106 H 97 12/27/22 03:43 103 H 96 12/27/22 03:38 102 H 97 12/27/22 03:30 20 12/27/22 03:30 20 12/27/22 03:35 103 H 121/67 12/27/22 03:33 109 H 97 12/27/22 03:28 101 H 97 12/27/22 03:23 102 H 97 12/27/22 03:18 107 H 97 12/27/22 03:19 104 H 106/55 L 12/27/22 03:13 105 H 96 12/27/22 03:08 104 H 96 12/27/22 03:03 108 H 97 12/27/22 03:04 107 H 117/57 L 12/27/22 02:58 104 H 96 12/27/22 02:53 102 H 96 12/27/22 02:48 103 H 97 12/27/22 02:49 103 H 119/56 L 12/27/22 02:43 112 H 97 12/27/22 02:38 106 H 97 12/27/22 02:34 102 H 119/58 L 12/27/22 02:33 106 H 97 12/27/22 02:28 108 H 97 12/27/22 02:23 99 H 98 12/27/22 02:20 105 H 133/61 12/27/22 02:18 107 H 97 12/27/22 02:15 36.8 C 12/27/22 02:13 102 H 97 12/27/22 02:08 101 H 96 12/27/22 02:03 101 H 96 12/27/22 02:04 100 H 107/56 L 12/27/22 01:58 107 H 97 12/27/22 01:53 98 H 97 12/27/22 01:48 103 H 97 12/27/22 01:49 98 H 117/59 L 12/27/22 01:43 99 H 97 12/27/22 01:38 98 H 98 12/27/22 01:35 100 H 122/63 12/27/22 01:33 100 H 98 12/27/22 01:28 100 H 98 12/27/22 01:23 102 H 98 12/27/22 01:20 96 H 127/66 12/27/22 01:18 100 H 97 12/27/22 01:13 96 H 98 12/27/22 01:08 93 H 98 12/27/22 01:03 109 H 98 12/27/22 01:04 117 H 140/88 12/27/22 00:58 93 H 98 12/27/22 00:53 97 H 98 12/27/22 00:48 94 H 99 12/27/22 00:46 92 H 136/63 12/27/22 00:43 97 H 99 12/27/22 00:42 99 H 136/66 12/27/22 00:38 101 H 99 12/27/22 00:36 102 H 121/64 12/27/22 00:33 104 H 99 12/27/22 00:31 99 H 120/57 L 12/27/22 00:28 100 H 99 12/27/22 00:26 108 H 126/68 12/27/22 00:23 107 H 99 12/27/22 00:21 95 H 125/58 L 12/27/22 00:18 103 H 100 12/27/22 00:16 96 H 135/65 12/27/22 00:13 89 98 12/27/22 00:11 90 149/78 H 12/27/22 00:08 97 H 99 12/27/22 00:09 94 H 154/80 H 12/27/22 00:07 88 142/77 H 12/27/22 00:05 85 133/71 12/27/22 00:03 98 12/27/22 00:03 93 H 12/27/22 00:03 88 138/78 12/27/22 00:00 85 133/70 12/26/22 23:58 99 12/26/22 23:58 89 12/26/22 23:53 98 12/26/22 23:53 84 12/26/22 23:48 99 12/26/22 23:48 97 H 12/26/22 23:43 99 12/26/22 23:43 102 H 12/26/22 23:38 99 12/26/22 23:38 96 H 12/26/22 23:33 99 12/26/22 23:33 97 H 12/26/22 23:31 88 12/26/22 23:31 143/77 H 12/26/22 23:28 99 12/26/22 23:28 90 12/26/22 23:23 100 12/26/22 23:23 94 H 12/26/22 23:18 99 12/26/22 23:18 86 12/26/22 23:13 99 12/26/22 23:13 90 12/26/22 23:08 99 12/26/22 23:08 90 12/26/22 23:03 99 12/26/22 23:03 89 12/26/22 22:58 99 12/26/22 22:58 89 12/26/22 22:53 99 12/26/22 22:53 87 12/26/22 22:48 99 12/26/22 22:48 92 H 12/26/22 22:43 98 12/26/22 22:43 88 12/26/22 22:40 36.9 C 12/26/22 22:38 99 12/26/22 22:38 88 12/26/22 22:33 98 12/26/22 22:33 87 12/26/22 22:33 88 12/26/22 22:33 144/79 H 12/26/22 22:28 98 12/26/22 22:28 91 H 12/26/22 22:23 99 12/26/22 22:23 92 H 12/26/22 22:18 98 12/26/22 22:18 95 H 12/26/22 22:13 98 12/26/22 22:13 93 H 12/26/22 22:08 98 12/26/22 22:08 87 12/26/22 22:03 98 12/26/22 22:03 88 12/26/22 21:58 99 12/26/22 21:58 88 12/26/22 21:53 98 12/26/22 21:53 96 H 12/26/22 21:48 98 12/26/22 21:48 94 H 12/26/22 21:43 99 12/26/22 21:43 101 H 12/26/22 21:38 99 12/26/22 21:38 92 H 12/26/22 21:33 98 12/26/22 21:33 93 H 12/26/22 21:31 90 12/26/22 21:31 142/82 H 12/26/22 21:28 99 12/26/22 21:28 86 12/26/22 21:23 98 12/26/22 21:23 96 H 12/26/22 21:18 99 06/29/23 21:18 91 H 12/26/22 21:13 99 12/26/22 21:13 88 12/26/22 21:08 99 12/26/22 21:08 92 H 12/26/22 21:03 99 12/26/22 21:03 90 12/26/22 20:58 99 12/26/22 20:58 95 H 12/26/22 20:53 100 12/26/22 20:53 84 12/26/22 20:48 99 12/26/22 20:48 95 H 12/26/22 20:43 100 12/26/22 20:43 89 12/26/22 20:38 99 12/26/22 20:38 86 12/26/22 20:33 99 12/26/22 20:33 90 12/26/22 20:28 99 12/26/22 20:28 80 12/26/22 20:23 99 12/26/22 20:23 85 12/26/22 20:22 81 12/26/22 20:22 128/68 12/26/22 20:18 99 12/26/22 20:18 80 12/26/22 20:13 99 12/26/22 20:13 81 12/26/22 20:08 99 12/26/22 20:08 81 12/26/22 20:03 99 12/26/22 20:03 79 12/26/22 19:58 99 12/26/22 19:58 81 12/26/22 19:53 99 12/26/22 19:53 77 12/26/22 19:48 99 12/26/22 19:48 68 12/26/22 19:43 99 12/26/22 19:43 78 12/26/22 19:38 100 12/26/22 19:38 81 12/26/22 19:33 99 12/26/22 19:33 68 12/26/22 19:28 99 12/26/22 19:28 96 H 12/26/22 19:23 99 12/26/22 19:23 82 12/26/22 19:22 78 12/26/22 19:22 135/74 12/26/22 19:18 99 12/26/22 19:18 79 12/26/22 19:13 98 12/26/22 19:13 82 12/26/22 19:08 98 12/26/22 19:08 91 H 12/26/22 19:03 98 12/26/22 19:03 84 12/26/22 18:58 97 12/26/22 18:58 83 12/26/22 18:53 98 12/26/22 18:53 85 12/26/22 18:48 99 12/26/22 18:48 83 12/26/22 18:43 98 12/26/22 18:43 83 12/26/22 18:40 88 12/26/22 18:40 177/84 H 12/26/22 18:38 98 12/26/22 18:38 89 12/26/22 18:33 98 12/26/22 18:33 84 12/26/22 18:28 99 12/26/22 18:28 90 12/26/22 18:23 99 12/26/22 18:23 98 H 12/26/22 18:18 99 12/26/22 18:18 104 H 12/26/22 18:13 99 12/26/22 18:13 93 H 12/26/22 18:08 98 12/26/22 18:08 96 H 12/26/22 18:03 99 12/26/22 18:03 82 12/26/22 18:04 82 12/26/22 18:04 167/92 H 12/26/22 17:58 99 12/26/22 17:58 97 H 12/26/22 17:54 92 H 12/26/22 17:54 191/103 H 12/26/22 17:53 99 12/26/22 17:53 83 12/26/22 17:48 98 12/26/22 17:48 83 12/26/22 17:42 83 12/26/22 17:42 174/95 H 12/26/22 17:30 87 12/26/22 17:30 174/100 H 12/26/22 17:08 88 12/26/22 17:08 175/79 H 12/26/22 17:01 88 12/26/22 17:01 181/88 H 12/26/22 16:56 93 H 12/26/22 16:56 191/91 H 12/26/22 16:48 95 H 12/26/22 16:48 216/113 H 12/26/22 16:38 98 H 12/26/22 16:38 235/119 H 12/26/22 16:22 98 H 12/26/22 16:22 195/106 H 12/26/22 16:18 101 H 12/26/22 16:18 183/104 H 12/26/22 15:55 92 H 12/26/22 15:55 182/93 H 12/26/22 15:54 93 H 12/26/22 15:54 198/110 H Pain Intensity Abdomen: Pain Intensity: 0 Transfer of Care Handoff Completed per policy Notes Mental Status: alert / awake / arousable and participated in evaluation Patient Amnestic to Procedure: No Nausea / Vomiting: adequately controlled Pain: adequately controlled Airway Patency, RR, SpO2: stable & adequate BP & HR: stable & adequate Hydration State: stable & adequate Neuraxial Anesthesia: was administered and sensory block is resolving Anesthetic Complications: no major complications apparent and Pt Satisfied with anesthetic care
[2022-12-27] MEDS: OXYTOCIN 20 UNITS in LACTATED RINGER'S 1,000 ML IV SCH (16:39)
[2022-12-27] MEDS: KETOROLAC 30 MG/ML VIAL IV PRN ×2 (16:41→22:58)
[2022-12-27 16:56] LABS: Hematocrit (blood only) 33.6 % (37.0-47.0); Hemoglobin 11.7 g/dl (12.0-16.0); Mean Corpuscular Hemoglobin 30.9 pg (25.0-34.0); Mean Corpuscular Hgb Conc 34.8 g/dL (32.0-36.0); Mean Corpuscular Volume 88.7 fL (80.0-100.0); Mean Platelet Volume 11.2 fL (9.4-12.4); Platelet Count 220 K/uL (130-400); RDW Coefficient of Variation 13.1 % (11.5-14.5); RDW Standard Deviation 42.5 fL (36.4-46.3); Red Blood Count 3.79 M/uL (4.20-5.40); White Blood Count 15.78 K/ul (4.8-10.8)
[2022-12-27] MEDS: SIMETHICONE 80 MG CHEW PO SCH ×2 (17:10→21:05)
[2022-12-27 17:13] LABS: Albumin Globulin Ratio 1.1 (0.9-2); Albumin Level 3.2 gm/dl (3.4-5.0); BUN Creatinine Ratio 9.5 (10-20); Bilirubin,Total 0.3 mg/dl (0.2-1.0); Calcium 7.1 mg/dl (8.6-10.3); Creatinine Clr Calc Pharmacy 139.2 ml/min; Est GFR (African American) 129.6 ml/min; Est GFR (Non-African American) 111.8 ml/min; Globulin 2.9 gm/dl (2.5-4.0); Magnesium Therapeutic L&D Only 5.1 mg/dL (4.0-8.0); Total Protein 6.1 gm/dl (6.0-8.3)
[2022-12-27] MEDS ORDERED: SODIUM CHLORIDE 0.9% 250 ML IV PRN (19:16)
[2022-12-27] MEDS: DOCUSATE SODIUM 100 MG CAP PO SCH (21:05)
[2022-12-27 23:03] LABS: Hematocrit (blood only) 31.4 % (37.0-47.0); Hemoglobin 10.9 g/dl (12.0-16.0); Mean Corpuscular Hemoglobin 31.1 pg (25.0-34.0); Mean Corpuscular Hgb Conc 34.7 g/dL (32.0-36.0); Mean Corpuscular Volume 89.7 fL (80.0-100.0); Mean Platelet Volume 10.9 fL (9.4-12.4); Platelet Count 210 K/uL (130-400); RDW Coefficient of Variation 13.2 % (11.5-14.5)
[2022-12-27 23:39] LABS: BUN Creatinine Ratio 9.1 (10-20); Bilirubin,Total 0.4 mg/dl (0.2-1.0); Calcium 6.8 mg/dl (8.6-10.3); Creatinine Clr Calc Pharmacy 133.8 ml/min; Est GFR (African American) 123.5 ml/min; Est GFR (Non-African American) 106.6 ml/min; Globulin 2.9 gm/dl (2.5-4.0); Magnesium Therapeutic L&D Only 5.3 mg/dL (4.0-8.0); Potassium 3.9 mmol/L (3.5-5.1); Total Protein 5.9 gm/dl (6.0-8.3)
[2022-12-28] MEDS: MAGNESIUM SULFATE / WTR 40 GM/1,000 ML BAG IV SCH (02:42)
[2022-12-28 03:37] LABS: Hematocrit (blood only) 30.6 % (37.0-47.0); Hemoglobin 10.5 g/dl (12.0-16.0); Mean Corpuscular Hemoglobin 30.9 pg (25.0-34.0); Mean Corpuscular Hgb Conc 34.3 g/dL (32.0-36.0); Mean Platelet Volume 10.8 fL (9.4-12.4); Platelet Count 189 K/uL (130-400); RDW Coefficient of Variation 13.2 % (11.5-14.5); RDW Standard Deviation 43.6 fL (36.4-46.3); White Blood Count 13.13 K/ul (4.8-10.8)
[2022-12-28 03:56] LABS: BUN Creatinine Ratio 8.8 (10-20); Bilirubin,Total 0.4 mg/dl (0.2-1.0); Calcium 6.8 mg/dl (8.6-10.3); Creatinine Clr Calc Pharmacy 128.8 ml/min; Est GFR (African American) 117.9 ml/min; Est GFR (Non-African American) 101.8 ml/min; Globulin 2.9 gm/dl (2.5-4.0); Magnesium Therapeutic L&D Only 5.3 mg/dL (4.0-8.0); Potassium 3.8 mmol/L (3.5-5.1); Total Protein 5.9 gm/dl (6.0-8.3)
[2022-12-28] MEDS: OXYTOCIN 20 UNITS in LACTATED RINGER'S 1,000 ML IV SCH (05:17)
[2022-12-28] MEDS ORDERED: PROMETHAZINE HCL 25 MG in SODIUM CHLORIDE 0.9% 50 ML IV PRN (07:35)
[2022-12-28] MEDS ORDERED: KETOROLAC 30 MG/ML VIAL IV PRN (07:35)
[2022-12-28] MEDS ORDERED: ONDANSETRON INJ 2 MG/ML 2 ML VIAL IV PRN (07:35)
[2022-12-28] MEDS ORDERED: diphenhydrAMINE 50 MG/ML VIAL IV PRN (07:35)
[2022-12-28] MEDS ORDERED: diphenhydrAMINE Capsule 25 MG CAP PO PRN (07:35)
[2022-12-28] MEDS: FERROUS SULFATE 325 MG TAB PO SCH (08:23)
[2022-12-28] MEDS: DOCUSATE SODIUM 100 MG CAP PO SCH ×2 (08:23→21:01)
[2022-12-28] MEDS: SIMETHICONE 80 MG CHEW PO SCH ×4 (08:23→21:01)
[2022-12-28] MEDS: PRENATAL VITAMIN 1 TAB PO SCH (08:23)
[2022-12-28] MEDS: LABETALOL HCL 200 MG TAB PO SCH ×3 (08:24→21:00)
--- NOTE | 2022-12-28 08:24 | Obstetrical Progress Note ---
Date of Service <Jason SanfordKelly Boyle DO - Last Filed: 12/28/22 08:24> December 28, 2022 Assessment & Plan <Jason SanfordKelly Boyle DO - Last Filed: 12/28/22 08:24> (1) state: (2) Chronic hypertension with superimposed preeclampsia: (3) Gestational diabetes: Plan - Feels well today. - needs 24 hours of mag s/p C section on 12/27 with preeclampsia. Then can advance patient's diet and ambulate. - Mendez in place. - Pain well controlled with PRN pain meds. - Routine care -- OOB, ambulation, diet progression as tolerated - After discharge will have 6 week follow-up with Dr. Jerez. Day #:: 1 <Hernan Barahona MD - Last Filed: 12/30/22 08:06> (1) state: (2) Chronic hypertension with superimposed preeclampsia: (3) Gestational diabetes: Subjective <Jasonchris Boyle DO - Last Filed: 12/28/22 08:24> Ambulation: limited ambulation Voiding: mendez catheter in place Passing Gas:: Yes Diet Tolerance:: regular diet Lochia:: Small Feeding Type:: breast feeding Current Pain Level(1-10): 2 Review of Systems Denies fever, chills, sweats Denies shortness of breath, difficulty breathing, chest pain, palpitations, chest pressure. Denies breast pain. Denies dysuria. Denies headache or changes in vision. Physical Exam <Jasonchris Boyle DO - Last Filed: 12/28/22 08:24> General: Alert, oriented. No acute distress. Cardiac: Regular rate and rhythm, no murmurs/rubs/gallops. Respiratory: Clear to auscultation bilaterally a/p, no wheezes/rales/rhonchi. No increased work of breathing. Symmetrical chest rise. No respiratory distress. Abdomen: Soft, nontender, nondistended. Bowel sounds present. Uterus: Uterine fundus firm, palpable 1 cm below umbilicus. Lower Extremities: No lower extremity edema or swelling. No deep calf pain. Jorge A's negative bilaterally. Results & Data <Jasonchris Boyle DO - Last Filed: 12/28/22 08:24> Vital Signs (Past 12 Hours) Vital Signs Temp Pulse Resp BP Pulse Ox 12/28/22 08:00 20 99 12/28/22 08:00 36.9 C 20 12/28/22 08:00 20 12/28/22 07:00 20 95 12/28/22 07:00 20 12/28/22 06:00 18 12/28/22 05:00 18 12/28/22 02:53 37.1 C 18 12/28/22 02:53 18 12/28/22 02:00 18 12/27/22 23:00 18 12/27/22 22:00 18 12/27/22 21:00 18 12/28/22 00:00 18 12/28/22 01:00 16 12/27/22 23:15 36.8 C 18 12/28/22 08:13 98 H 96 12/28/22 08:08 93 H 97 12/28/22 08:03 87 99 12/28/22 08:01 96 H 166/85 H 12/28/22 07:58 95 H 97 12/28/22 07:53 93 H 93 12/28/22 07:48 92 H 94 12/28/22 07:43 95 H 96 12/28/22 07:41 93 H 136/80 12/28/22 07:38 94 H 95 12/28/22 07:33 93 H 96 12/28/22 07:28 91 H 94 12/28/22 07:23 91 H 95 12/28/22 07:21 89 132/76 12/28/22 07:18 96 H 94 12/28/22 07:13 95 H 94 12/28/22 07:08 94 H 96 12/28/22 07:07 94 H 94 12/28/22 07:03 97 H 93 12/28/22 07:01 95 H 134/77 12/28/22 06:58 92 H 94 12/28/22 06:54 96 H 93 12/28/22 06:53 98 H 94 12/28/22 06:48 94 12/28/22 06:48 95 H 12/28/22 06:48 95 H 94 12/28/22 06:43 94 12/28/22 06:43 93 H 12/28/22 06:43 93 H 94 12/28/22 06:41 90 120/72 07/01/23 06:38 90 94 12/28/22 06:35 89 94 12/28/22 06:33 88 95 12/28/22 06:30 87 94 12/28/22 06:28 95 H 95 12/28/22 06:23 91 H 94 12/28/22 06:22 90 94 12/28/22 06:21 88 150/70 H 12/28/22 06:19 84 194/95 H 12/28/22 06:18 96 H 96 12/28/22 06:17 86 94 12/28/22 06:13 90 93 12/28/22 06:11 92 H 93 12/28/22 06:08 91 H 95 12/28/22 06:06 86 93 12/28/22 06:03 90 94 12/28/22 05:58 91 H 94 12/28/22 05:56 88 94 12/28/22 05:53 93 H 96 12/28/22 05:48 93 H 96 12/28/22 05:46 92 H 94 12/28/22 05:43 93 H 95 12/28/22 05:38 93 H 96 12/28/22 05:33 89 97 12/28/22 05:28 100 H 95 12/28/22 05:23 90 95 12/28/22 05:18 94 H 97 12/28/22 05:13 97 H 96 12/28/22 05:09 97 H 94 12/28/22 05:08 99 H 95 12/28/22 05:03 92 H 96 12/28/22 04:58 93 H 96 12/28/22 04:53 91 H 96 12/28/22 04:48 92 H 97 12/28/22 04:43 90 95 12/28/22 04:38 92 H 95 12/28/22 04:33 95 H 95 12/28/22 04:28 98 H 96 12/28/22 04:23 94 H 97 12/28/22 04:20 83 94 12/28/22 04:18 84 94 12/28/22 04:14 82 94 12/28/22 04:13 82 95 12/28/22 04:08 91 H 96 12/28/22 04:06 82 94 12/28/22 04:03 89 95 12/28/22 04:00 85 18 94 12/28/22 03:58 83 94 12/28/22 03:54 82 93 12/28/22 03:53 79 94 12/28/22 03:48 94 12/28/22 03:48 80 12/28/22 03:48 83 94 12/28/22 03:43 81 95 12/28/22 03:42 81 94 12/28/22 03:38 83 95 12/28/22 03:33 82 95 12/28/22 03:28 86 96 12/28/22 03:23 86 96 12/28/22 03:18 84 95 12/28/22 03:13 84 96 12/28/22 03:08 85 97 12/28/22 03:03 88 96 12/28/22 02:58 84 96 12/28/22 02:53 82 96 12/28/22 02:48 80 97 12/28/22 02:49 80 155/74 H 12/28/22 02:46 80 88 L 12/28/22 02:41 83 98 12/28/22 02:39 83 91 12/28/22 02:36 97 H 100 12/28/22 02:32 80 92 12/28/22 02:31 80 100 12/28/22 02:26 79 100 12/28/22 02:21 87 100 12/28/22 02:16 81 100 12/28/22 02:11 88 100 12/28/22 02:06 81 100 12/28/22 02:07 80 133/78 12/28/22 02:01 83 100 12/28/22 01:56 85 100 12/28/22 01:51 93 H 100 12/28/22 01:46 86 100 12/28/22 01:41 77 96 12/28/22 01:36 79 97 12/28/22 01:33 78 91 12/28/22 01:31 79 96 12/28/22 01:26 80 97 12/28/22 01:21 86 95 12/28/22 01:20 91 H 93 12/28/22 01:16 78 100 12/28/22 01:11 83 100 12/28/22 01:06 78 100 12/28/22 01:07 77 126/74 12/28/22 01:01 74 100 12/28/22 00:56 82 100 12/28/22 00:51 78 100 12/28/22 00:46 81 100 12/28/22 00:41 81 100 12/28/22 00:36 84 100 12/28/22 00:31 81 100 12/28/22 00:26 83 100 12/28/22 00:21 77 100 12/28/22 00:16 75 100 12/28/22 00:11 87 100 12/28/22 00:06 88 100 12/28/22 00:07 84 127/68 12/28/22 00:01 81 100 12/27/22 23:56 83 98 12/27/22 23:51 86 97 12/27/22 23:46 84 96 12/27/22 23:41 79 96 12/27/22 23:36 83 96 12/27/22 23:31 83 97 12/27/22 23:26 79 96 12/27/22 23:21 81 97 12/27/22 23:16 81 96 12/27/22 23:11 79 96 12/27/22 23:06 85 97 12/27/22 23:07 82 141/81 H 12/27/22 23:01 80 98 12/27/22 22:56 84 99 12/27/22 22:51 82 98 12/27/22 22:46 84 96 12/27/22 22:41 90 96 12/27/22 22:36 89 96 12/27/22 22:34 86 94 12/27/22 22:31 85 94 12/27/22 22:29 92 H 94 12/27/22 22:26 92 H 95 12/27/22 22:21 87 95 12/27/22 22:20 83 94 12/27/22 22:16 84 94 12/27/22 22:15 85 94 12/27/22 22:11 82 94 12/27/22 22:09 79 94 12/27/22 22:06 82 94 12/27/22 22:07 81 115/70 12/27/22 22:03 83 94 12/27/22 22:01 85 95 12/27/22 21:56 87 96 12/27/22 21:51 87 96 12/27/22 21:46 85 96 12/27/22 21:41 83 97 12/27/22 21:36 91 H 99 12/27/22 21:31 96 12/27/22 21:31 80 12/27/22 21:31 81 94 12/27/22 21:26 95 12/27/22 21:26 77 12/27/22 21:26 80 94 12/27/22 21:21 79 94 12/27/22 21:20 79 94 12/27/22 21:16 80 94 12/27/22 21:15 78 94 12/27/22 21:11 77 96 12/27/22 21:06 92 H 97 12/27/22 21:07 90 134/85 12/27/22 21:05 88 126/75 12/27/22 21:01 94 12/27/22 21:01 81 12/27/22 21:01 78 94 12/27/22 20:56 78 94 12/27/22 20:53 78 94 12/27/22 20:51 78 95 12/27/22 20:46 76 96 12/27/22 20:41 78 96 12/27/22 20:36 84 95 12/27/22 20:31 81 98 12/27/22 20:26 85 98 12/27/22 20:21 86 97 <Hernan Barahona MD - Last Filed: 12/30/22 08:06> Co-Signing Physician Notes Patient seen with resident and agree with the above findings and plan. Continue mg for 24 hours postdelivery. Blood pressures mostly mild range and patient denying any preeclampsia symptoms. Labs normal this a.m. Resident Activity Tracking <Jason Boyle DO - Last Filed: 12/28/22 08:24> Resident Involvement: Resident Care Provided Care Provided: OB Delivery
[2022-12-28] MEDS: oxyCODONE/ACETAMINOPHEN 5mg/325mg TAB PO PRN ×3 (09:24→23:47)
[2022-12-28 09:25] LABS: Hemoglobin 11.1 g/dl (12.0-16.0); Mean Corpuscular Hgb Conc 34.7 g/dL (32.0-36.0); Mean Corpuscular Volume 89.4 fL (80.0-100.0); Mean Platelet Volume 10.7 fL (9.4-12.4); Platelet Count 210 K/uL (130-400); RDW Coefficient of Variation 13.2 % (11.5-14.5); RDW Standard Deviation 43.2 fL (36.4-46.3); Red Blood Count 3.58 M/uL (4.20-5.40); White Blood Count 12.27 K/ul (4.8-10.8)
[2022-12-28 09:41] LABS: Albumin Level 3.1 gm/dl (3.4-5.0); BUN Creatinine Ratio 8.3 (10-20); Bilirubin,Total 0.3 mg/dl (0.2-1.0); Calcium 6.7 mg/dl (8.6-10.3); Creatinine Clr Calc Pharmacy 143.1 ml/min; Est GFR (Non-African American) 115.6 ml/min; Globulin 3.1 gm/dl (2.5-4.0); Magnesium Therapeutic L&D Only 5.1 mg/dL (4.0-8.0); Potassium 3.6 mmol/L (3.5-5.1); Total Protein 6.2 gm/dl (6.0-8.3)
[2022-12-28 15:09] LABS: Hematocrit (blood only) 31.2 % (37.0-47.0); Hemoglobin 10.9 g/dl (12.0-16.0); Mean Corpuscular Hemoglobin 31.1 pg (25.0-34.0); Mean Corpuscular Hgb Conc 34.9 g/dL (32.0-36.0); Mean Corpuscular Volume 89.1 fL (80.0-100.0); Mean Platelet Volume 10.2 fL (9.4-12.4); Platelet Count 210 K/uL (130-400); RDW Coefficient of Variation 13.2 % (11.5-14.5); RDW Standard Deviation 42.7 fL (36.4-46.3); White Blood Count 12.26 K/ul (4.8-10.8)
[2022-12-28 15:27] LABS: Albumin Globulin Ratio 1.1 (0.9-2); Albumin Level 3.2 gm/dl (3.4-5.0); BUN Creatinine Ratio 7.4 (10-20); Bilirubin,Total 0.3 mg/dl (0.2-1.0); Creatinine Clr Calc Pharmacy 127.2 ml/min; Est GFR (African American) 116.2 ml/min; Est GFR (Non-African American) 100.2 ml/min; Magnesium Therapeutic L&D Only 4.2 mg/dL (4.0-8.0); Potassium 4.1 mmol/L (3.5-5.1); Total Protein 6.2 gm/dl (6.0-8.3)
[2022-12-28] MEDS ORDERED: bisacodyL 5 MG TABEC PO SCH (20:00)
[2022-12-28] MEDS: IBUPROFEN 600 MG TAB PO PRN (23:48)
[2022-12-29] MEDS: IBUPROFEN 600 MG TAB PO PRN ×4 (05:41→20:31)
[2022-12-29] MEDS: oxyCODONE/ACETAMINOPHEN 5mg/325mg TAB PO PRN ×4 (05:42→20:31)
[2022-12-29 07:16] LABS: Hematocrit (blood only) 29.6 % (37.0-47.0); Hemoglobin 10.2 g/dl (12.0-16.0)
[2022-12-29] MEDS: SIMETHICONE 80 MG CHEW PO SCH ×4 (08:23→20:30)
[2022-12-29] MEDS: LABETALOL HCL 200 MG TAB PO SCH ×2 (08:23→13:25)
[2022-12-29] MEDS: FERROUS SULFATE 325 MG TAB PO SCH (08:23)
[2022-12-29] MEDS: DOCUSATE SODIUM 100 MG CAP PO SCH ×2 (08:23→20:30)
[2022-12-29] MEDS: PRENATAL VITAMIN 1 TAB PO SCH (08:23)
--- NOTE | 2022-12-29 08:42 | Obstetrical Progress Note ---
Date of Service December 29, 2022 Assessment & Plan (1) state: Plan Breasteeding. Incision CDI. POD#2 doing well. Increased labetalol 200mg to TID dosing yesterday, will continue to monitor BPs throughout the day today. Anticipate DC home tomorrow. Subjective Ambulation: ambulating normally Voiding: no voiding problems Diet Tolerance:: regular diet Lochia:: Moderate Review of Systems All systems reviewed & are unremarkable except as noted in HPI & below Physical Exam Constitutional WD/WN, vitals as above no acute distress Respiratory normal respiratory effort Cardiovascular Rate/Rhythm: regular rate and regular rhythm Gastrointestinal (Abdomen) Inspection/Auscultation: abdomen normal to inspection; abdomen not distended Percussion/Palpation: abdomen soft Genitourinary OB Exam Abdomen: + fundal height Fundus: + firm; not tender Results & Data Vital Signs (Past 12 Hours) Vital Signs Temp Pulse Resp BP Pulse Ox O2 Del Method 12/29/22 07:30 36.8 C 78 16 155/94 H 98 Room Air 12/29/22 03:25 36.7 C 80 18 148/85 H 97 Room Air 12/28/22 23:55 36.9 C 84 18 144/94 H 97 Room Air 12/28/22 21:00 Room Air 12/28/22 21:00 37.0 C 104 H 16 139/90 98 Room Air
[2022-12-29] MEDS ORDERED: bisacodyL 10 MG SUPP PR PRN (13:55)
[2022-12-29] MEDS ORDERED: LABETALOL HCL 100 MG TAB PO ONE (15:03)
[2022-12-29] MEDS ORDERED: LABETALOL HCL 300 MG TAB PO SCH (21:00)
[2022-12-30] MEDS: IBUPROFEN 600 MG TAB PO PRN ×4 (00:04→20:54)
[2022-12-30] MEDS: oxyCODONE/ACETAMINOPHEN 5mg/325mg TAB PO PRN ×4 (00:04→20:55)
--- NOTE | 2022-12-30 07:44 | Obstetrical Progress Note ---
Date of Service December 30, 2022 Assessment & Plan (1) state: POD#3 doing well. Incision PATTY clean. BPs remain elevated - will further increase labetalol to 400mg Q8h. She is agreeable. Anticipate DC home today, will continue to monitor BPs throughout the day today. Rx percocet sent to pharmacy. Needs 1w office visit THIS FRIDAY for PATTY dressing removal and BP check, patient aware. Subjective Ambulation: ambulating normally Voiding: no voiding problems Diet Tolerance:: regular diet Lochia:: Moderate Review of Systems All systems reviewed & are unremarkable except as noted in HPI & below Physical Exam Constitutional WD/WN, vitals as above no acute distress Respiratory normal respiratory effort Cardiovascular Rate/Rhythm: regular rate and regular rhythm Gastrointestinal (Abdomen) Inspection/Auscultation: abdomen normal to inspection; abdomen not distended Percussion/Palpation: abdomen soft Genitourinary OB Exam Abdomen: + fundal height Fundus: + firm; not tender Results & Data Vital Signs (Past 12 Hours) Vital Signs Temp Pulse Resp BP Pulse Ox O2 Del Method 12/30/22 04:00 158/90 H 12/29/22 23:15 36.6 C 82 16 151/88 H 98 Room Air 12/29/22 20:27 36.8 C 91 H 20 150/90 H
[2022-12-30] MEDS: LABETALOL HCL 200 MG TAB PO SCH ×3 (07:55→20:54)
[2022-12-30] MEDS: PRENATAL VITAMIN 1 TAB PO SCH (07:56)
[2022-12-30] MEDS: SIMETHICONE 80 MG CHEW PO SCH ×4 (07:56→20:54)
[2022-12-30] MEDS: DOCUSATE SODIUM 100 MG CAP PO SCH ×2 (07:56→20:55)
[2022-12-30] MEDS: FERROUS SULFATE 325 MG TAB PO SCH (07:56)
[2022-12-30] MEDS ORDERED: LABETALOL HCL 200 MG TAB PO SCH (09:00)
--- NOTE | 2022-12-30 09:55 | Obstetrical Progress Note ---
Date of Service December 30, 2022 Assessment & Plan (1) state: Plan suspect this is area of skin to skin rubbing causing this issue due to obesity and folds of skin. rec trying to keep dry, offered options and pt elects gauze. may need to apply vaseline to gauze to prevent sticking but will try plain first. otherwise dressing seems intact. they were concerned that beeping of device earlier today was due to defect in dressing. not beeping now, so will monitor. can apply new PATTY dressing if needed. Admission and Anticipated Discharge Date Admission Date: December 26, 2022 Subjective ctsp due to concern for blistering of skin on right lower edge of patty dressing and that patty Physical Exam Constitutional: WD/WN, vitals as above Gastrointestinal (Abdomen): incision dressed with patty dressing. skin irritation, erythema and small blister at right lower corner where dressing is peeled off. not evidence along edge of dressing in other areas. Results & Data Vital Signs (Past 12 Hours) Vital Signs Temp Pulse Pulse Resp BP Pulse Ox O2 Del Method 12/30/22 07:45 98.1 F 84 20 152/99 H Room Air 12/30/22 04:00 158/90 H 12/29/22 23:15 97.9 F 82 16 151/88 H 98 Room Air PG Care Time/CCT Total # of Minutes Spent Total Time Spent with Patient: Total time spent is greater than 50% in coordination of care (as documented) at patient's floor/unit and/or counseling patient: Coding Level of Care Code None Diagnoses state Z39.2
[2022-12-31] MEDS: oxyCODONE/ACETAMINOPHEN 5mg/325mg TAB PO PRN ×2 (05:38→09:48)
[2022-12-31] MEDS: IBUPROFEN 600 MG TAB PO PRN ×2 (05:38→09:47)
[2022-12-31] MEDS: LABETALOL HCL 200 MG TAB PO SCH ×2 (06:30→14:07)
--- NOTE | 2022-12-31 06:41 | Obstetrical Progress Note ---
Date of Service December 31, 2022 Assessment & Plan (1) state: (2) Chronic hypertension with superimposed preeclampsia: Plan 27 yo POD4 from [facility], doing well -Meeting all pp milestones. BPs better on labetalol 400mg po q8 -Rh neg, baby rh neg/rubella immune -f/u 6 weeks for appt, this friday for bryant removal and BP check. Subjective Ambulation: ambulating normally Voiding: no voiding problems Passing Gas:: Yes Diet Tolerance:: regular diet Lochia:: Small Pain well managed with medication Review of Systems Denies fevers, chills, n/v, NOYOLA, CP, SOB Physical Exam Constitutional WD/WN, vitals as above no acute distress Respiratory normal respiratory effort, lungs clear to auscultation Cardiovascular RRR, no murmur, no edema Gastrointestinal (Abdomen) Percussion/Palpation: abdomen soft; abdomen nontender fundus firm at umbilicus and NT. Bryant dressing intact w/o skin abnormalities Musculoskeletal BLE symmetric, nonerythematous, nontender Results & Data Vital Signs (Past 12 Hours) Vital Signs Temp Pulse Resp BP O2 Del Method 12/31/22 06:20 140/91 12/31/22 00:45 Room Air 12/31/22 00:45 97.9 F 88 18 135/85 Room Air 12/30/22 22:31 84 142/95 H 12/30/22 21:00 80 151/98 H
[2022-12-31] MEDS: DOCUSATE SODIUM 100 MG CAP PO SCH (09:46)
[2022-12-31] MEDS: SIMETHICONE 80 MG CHEW PO SCH ×2 (09:47→14:06)
[2022-12-31] MEDS: FERROUS SULFATE 325 MG TAB PO SCH (09:47)
[2022-12-31] MEDS: PRENATAL VITAMIN 1 TAB PO SCH (09:47)
--- NOTE | 2023-01-01 18:46 | Discharge Summary ---
Date of Service January 01, 2023 Admission HPI Per Admitting Provider 27yo at 37 6/7 wks glenis presents to L&D from office with elevated bps at her routine ob checkup in background of CHTN. On labetalol bid, no complaints in office but bp 160-180/100s. Sent for further evaluation here. Bps elevated here as well. Rec moving toward delivery. Labs drawn but not avail. Currently just started with mild NOYOLA. No ruq pain, no n/v, no worsening swelling. No rom, vb. +FM. No ctx. PNC c/b 1. CHTN, started labetalol 100mg bid in 3rd trimester, normal growth u/s 2. GDM--diet controlled. 3. LGSIL pap, colpo done x 2 suspect cin1, plan pp colpo 4. Rh neg 5. Velamentous Cord Insertion PNL rh pos, ri, gbs neg OBH: g1 GYNH: lgsil paps, no stds Discharge Data Consultations 12/26/22 16:52 Consult Anesthesiology Stat Procedures Performed Operation Date: 12/27/22 12:50 Actual Procedures p Primary Section in LD; Live male child at 1330(Bilateral) - Ran Jerez MD, [facility] [place] Hospital Course (1) state: (2) Chronic hypertension with superimposed preeclampsia: Plan 27 yo POD4 from [facility], doing well -Meeting all pp milestones. BPs better on labetalol 400mg po q8 -Rh neg, baby rh neg/rubella immune -f/u 6 weeks for appt, this friday for bryant removal and BP check. Supervising Physician Co-Signing Physician Notes Patient seen with resident and agree with the above findings and plan. Continue mg for 24 hours postdelivery. Blood pressures mostly mild range and patient denying any preeclampsia symptoms. Labs normal this a.m. Coding Level of Care Code None Diagnoses state Z39.2 Chronic hypertension with superimposed preeclampsia O11.9
== END 2022-12-31 18:47 | disposition home or self-care (01) | DRG 788 ==
LOC: OPB 15:07 → 4S1 15:08 → 4E2 12-28 16:55
DX: Z3A.38 38 weeks gestation of pregnancy; O24.420 Gestational diabetes mellitus in childbirth, diet controlled; Z37.0 Single live birth; Z79.82 Long term (current) use of aspirin; O11.4 Pre-existing hypertension with pre-eclampsia, complicating childbirth; O77.8 Labor and delivery complicated by other evidence of fetal stress

== ENCOUNTER 2024-05-05 17:24 | Inpatient (IN) ==
--- NOTE | 2024-05-05 17:46 | Emergency Department Note ---
Impression & Plan Pre-eclampsia Admission ED Provider Note HPI: History obtained from patient. The patient is a 28-year-old G2, P1 female with history of preeclampsia, presents the emergency department with chief complaint of high blood pressure. Patient states earlier today when she was at home she took her blood pressure and it was 180/120, she denies any headache, denies any visual changes, denies any abdominal pain. Patient states that her pressure was again persistently high on recheck and therefore she contacted her REFLESHER provider's office. She states that the nurse at the office spoke with Dr. Barahona and she was advised to come to the emergency department to be assessed. On arrival here to the ED the patient is hypertensive at 210/145, she otherwise appears to be in no acute distress on my initial evaluation. ROS: - Per HPI Differential Diagnosis: Preeclampsia, hypertensive urgency, hypertensive emergency, amongst other potential pathologies. *Outpatient medications and allergy history reviewed. PE: General: Alert HEENT: Normocephalic, trachea midline Eyes: Extraocular eye movement is intact, no scleral erythema Pulmonary: Clear to auscultation bilaterally, no wheezing Cardio: Regular rate and rhythm GI: Abdomen is soft to palpation : No suprapubic tenderness MSK: No evidence of trauma or malformation of the extremities, no edema Skin: No evidence of rash Neuro: Alert, no focal deficits Psychiatric: Cooperative INDEPENDENT INTERPRETATIONS: specialty molder: (As interpreted by myself): - An order was placed for continuous cardiac monitoring - Patient was noted to be in sinus rhythm with rate 104 EKG: (As interpreted by myself): Rate: 105 Rhythm: Sinus tachycardia Intervals: Within normal limits ST changes: No ST elevation Time: 1742 Interventions provided in ED: -IV labetalol, IV magnesium, oral nifedipine Medical Decision Making: Patient appears well on arrival although she is hypertensive, IV was established and lab work obtained, patient was placed on appliance sales associate. Patient was ordered IV labetalol shortly after my assessment for her initial blood pressure. Blood pressure did downtrend here in the ED with IV labetalol and oral nifedipine, she was started on IV magnesium as well. Lab work was obtained but does not show any evidence of any critical findings. Patient's blood pressure did downtrend here nicely in the ER with medication to 139/87. I did discuss the patient's presentation with the on-call [place] REFLESHER provider, Dr. Jerez, and he did evaluate the patient here in the ER, he will admit the patient to the labor and delivery floor for further management and observation. Patient was transferred in stable condition for further care. Consultants/Discussions held with other healthcare providers: -REFLESHER, Dr. Jerez * CRITICAL CARE TIME: ( 38 ) minutes -Management of patient in the second trimester with vital signs concerning for preeclampsia requiring IV medications for blood pressure improvement, time spent at the bedside, interpretation of diagnostic studies, discussion with specialty physician/REFLESHER and arrangement of admission Diagnosis: 1. Preeclampsia, acute Disposition: Admission Yasmani Valle DO Emergency Medicine Past Med/Surg History Problem List (Updated 05/05/24 @ 19:49 by Yasmani Valle DO) Pre-eclampsia (Acute) Gestational diabetes mellitus (GDM) affecting , antepartum Previous delivery affecting Rh negative status during Chronic hypertension during , antepartum Encounter for anatomic survey Medical History (Updated 05/05/24 @ 19:49 by Yasmani Valle DO) Depression Hx of chest pain 2020, given stress test w/echo (at hospital in [place]), no cardiac findings- no chest pain since 2020 LIBERTY III (cervical intraepithelial neoplasia III) Chronic hypertension with superimposed preeclampsia Gestational diabetes Abnormal Pap smear of cervix Chronic hypertension affecting Hx of renal calculi passed on own Hx gestational diabetes Hypertension depression Surgical History (Updated 01/15/24 @ 13:42 by Yodit Grayson RN) H/O LEEP 05/2023 History of colposcopy with cervical biopsy Hx of section 11/2022 Family History Father Myocardial infarction Denies family history of Ovarian cancer Prostate cancer Heart disease Breast cancer Lung cancer Colorectal cancer Uterine cancer Stroke Social History Smoking Status: Never smoker Tobacco Type: Cigarettes Cigarettes Per Day: 7; Second Hand Exposure: No; Do You Dip or Chew Tobacco: No; Hx Alcohol Use: No Hx Substance Use: No Preferred Language: Greek Communication Ability: Effective Visual Impairment: Limited Hearing Ability: Normal Punchboard Stuffer Required: No Beliefs That Will Affect Care: None marital status: marital status details: Bismark (38) [phone] Current Living Situation: Spouse and Family Current Living Situation Comment: lives with FOB and child, no pets. current occupational status: employed current occupation: [employer] in [place] How many Children do You have: 1 Feels Safe at Home: Yes Childhood Exposure to Second-Hand Smoke: No Diet: regular caffeine: Yes Dental Care, Regularly: No Physical Activity Frequency: 5-6 Times per Week Seatbelt Use: always Sunscreen Use: Yes Assistive Devices: Glasses Allergies Allergies Allergy/AdvReac Type Severity Reaction Status Date / Time lactose Allergy Gastrointestinal Verified 04/21/24 15:59 Upset Home Meds Home Medications Medication Instructions Recorded Confirmed vit no.95-ferrous 1 tab PO DAILY 05/05/24 05/05/24 fumarate 28 mg-folic acid 800 mcg tablet () Previous Rx's Medication Instructions Recorded acetone (urine) test (Ketone Urine #50 ea 03/22/24 Test strips) blood sugar diagnostic (OneTouch #150 ea 03/22/24 Verio test strips) lancets 33 gauge (OneTouch Delica #150 ea 03/22/24 Plus Lancet) sertraline 25 mg tablet (Zoloft) 25 mg PO QAM #90 tabs 03/24/24 Results & Data (ED) Vital Signs Vital Signs - 24 hr 05/05/24 17:27 05/05/24 17:50 05/05/24 17:51 Temperature 36.9 C Temperature Source Temporal Artery Scan Pulse Rate 130 H 108 H Pulse Rate [Apical] 111 H Pulse Rate from SpO2 Sensor Pulse Rhythm Pulse Rhythm [Apical] Regular Pulse Strength [Apical] Normal Respiratory Rate 20 19 Respiratory Effort / Characteristics Non-Labored Spontaneous Respiratory Depth Normal Respiratory Pattern Regular Blood Pressure 210/145 H 168/109 H Blood Pressure [Left Arm] 165/109 H Blood Pressure Mean 166 Blood Pressure Mean [Left Arm] 127 Blood Pressure Position [Left Arm] Sitting Pulse Oximetry 97 Oxygen Delivery Method Room Air Sepsis Recent Fever Within 48 Hours No Sepsis New/Unexplained Change in Mental Status No Sepsis Action Taken by Nursing No Action Required 05/05/24 17:52 05/05/24 17:52 05/05/24 18:00 Temperature Temperature Source Pulse Rate 102 H 105 H Pulse Rate [Apical] 105 H Pulse Rate from SpO2 Sensor Pulse Rhythm Regular Pulse Rhythm [Apical] Regular Pulse Strength [Apical] Normal Respiratory Rate 17 18 Respiratory Effort / Characteristics Non-Labored Spontaneous Respiratory Depth Normal Respiratory Pattern Regular Blood Pressure Blood Pressure [Left Arm] 165/109 H Blood Pressure Mean Blood Pressure Mean [Left Arm] 127 Blood Pressure Position [Left Arm] Sitting Pulse Oximetry 97 97 Oxygen Delivery Method Room Air Room Air Sepsis Recent Fever Within 48 Hours Sepsis New/Unexplained Change in Mental Status Sepsis Action Taken by Nursing 05/05/24 18:15 05/05/24 18:20 05/05/24 18:25 Temperature Temperature Source Pulse Rate 98 H 99 H Pulse Rate [Apical] 98 H Pulse Rate from SpO2 Sensor Pulse Rhythm Pulse Rhythm [Apical] Regular Pulse Strength [Apical] Normal Respiratory Rate 16 19 Respiratory Effort / Characteristics Non-Labored Spontaneous Respiratory Depth Normal Respiratory Pattern Regular Blood Pressure 141/83 H Blood Pressure [Left Arm] 141/83 H Blood Pressure Mean Blood Pressure Mean [Left Arm] 102 Blood Pressure Position [Left Arm] Sitting Pulse Oximetry 97 96 Oxygen Delivery Method Room Air Sepsis Recent Fever Within 48 Hours Sepsis New/Unexplained Change in Mental Status Sepsis Action Taken by Nursing 05/05/24 18:25 05/05/24 18:30 05/05/24 18:35 Temperature Temperature Source Pulse Rate 93 H Pulse Rate [Apical] 99 H 96 H Pulse Rate from SpO2 Sensor Pulse Rhythm Pulse Rhythm [Apical] Regular Regular Pulse Strength [Apical] Normal Normal Respiratory Rate 19 16 19 Respiratory Effort / Characteristics Non-Labored Spontaneous Non-Labored Spontaneous Respiratory Depth Normal Normal Respiratory Pattern Regular Regular Blood Pressure 139/87 Blood Pressure [Left Arm] 141/90 H 141/88 H Blood Pressure Mean 104 Blood Pressure Mean [Left Arm] 107 105 Blood Pressure Position [Left Arm] Sitting Sitting Pulse Oximetry 95 97 97 Oxygen Delivery Method Room Air Room Air Sepsis Recent Fever Within 48 Hours Sepsis New/Unexplained Change in Mental Status Sepsis Action Taken by Nursing 05/05/24 18:45 05/05/24 18:54 05/05/24 19:00 Temperature Temperature Source Pulse Rate 100 H 93 H Pulse Rate [Apical] 96 H Pulse Rate from SpO2 Sensor 100 H 93 H Pulse Rhythm Pulse Rhythm [Apical] Regular Pulse Strength [Apical] Normal Respiratory Rate 19 14 15 Respiratory Effort / Characteristics Non-Labored Spontaneous Respiratory Depth Normal Respiratory Pattern Regular Blood Pressure Blood Pressure [Left Arm] 139/87 Blood Pressure Mean Blood Pressure Mean [Left Arm] 104 Blood Pressure Position [Left Arm] Sitting Pulse Oximetry 97 97 98 Oxygen Delivery Method Room Air Sepsis Recent Fever Within 48 Hours Sepsis New/Unexplained Change in Mental Status Sepsis Action Taken by Nursing Laboratory Data 05/05/24 17:45 05/05/24 17:45 Lab Results 05/05/24 Range/Units 17:45 WBC 11.57 H (4.8-10.8) K/ul RBC 3.98 L (4.20-5.40) M/uL Hgb 12.0 (12.0-16.0) g/dl Hct 33.9 L (37.0-47.0) % MCV 85.2 (80.0-100.0) fL MCH 30.2 (25.0-34.0) pg MCHC 35.4 (32.0-36.0) g/dL RDW Std Deviation 37.2 (36.4-46.3) fL RDW Coeff of Jaron 12.1 (11.5-14.5) % Plt Count 283 (130-400) K/uL MPV 10.6 (9.4-12.4) fL Immature Gran % (Auto) 0.4 % Neut % (Auto) 77.4 % Lymph % (Auto) 15.9 % Orange % (Auto) 5.0 % Eos % (Auto) 1.1 % Baso % (Auto) 0.2 % Neut # (Auto) 8.95 H (1.40-6.50) K/uL Lymph # (Auto) 1.84 (1.20-3.40) K/uL Orange # (Auto) 0.58 (0.11-0.59) K/uL Eos # (Auto) 0.13 (0.00-0.50) K/uL Baso # (Auto) 0.02 (0.00-0.20) K/uL Immature Gran # (Auto) 0.05 (0.01-0.20) K/uL Sodium 137 (136-145) mmol/L Potassium 3.3 L (3.5-5.1) mmol/L Chloride 104 (98-107) mmol/L Carbon Dioxide 23 (21-32) mmol/L Anion Gap 10 (3-11) BUN 5 L (6-23) mg/dl Creatinine 0.66 (0.6-1.2) mg/dl Est Cr Clr Drug Dosing 134.1 ml/min eGFR 123.23 BUN/Creatinine Ratio 7.6 L (10-20) Glucose 114 H (70-99(Fasting)) mg/dl Calcium 9.0 (8.6-10.3) mg/dl Total Bilirubin 0.3 (0.2-1.0) mg/dl AST 11 L (13-39) U/L ALT 11 (7-52) U/L Alkaline Phosphatase 73 (34-104) U/L Total Protein 6.9 (6.0-8.3) gm/dl Albumin 3.7 (3.4-5.0) gm/dl Globulin 3.2 (2.5-4.0) gm/dl Albumin/Globulin Ratio 1.2 (0.9-2) Administered Medications Discontinued Medications Labetalol HCl (Labetalol Hcl Iv 5 Mg/Ml 20ml) 20 mg IV NOW STA Stop: 05/05/24 17:39 Last Admin: 05/05/24 17:51 Dose: 20 mg Documented By: WAYNE Magnesium Sulfate (Mag Sulfate 4gm Bolus From Bag) 4 gm IV ONE ONE Stop: 05/05/24 17:43 Last Admin: 05/05/24 18:16 Dose: 4 gm Documented By: WAYNE Co-signed By: NICCI Magnesium Sulfate/Dextrose (Magnesium Sulfate 1gm / D5w Bag) Confirm Administered Dose 4 gm IV .STK-MED ONE Stop: 05/05/24 18:00 Last Admin: 05/05/24 18:11 Dose: Not Given Documented By: WAYNE Nifedipine (Nifedipine 10 Mg Cap) 10 mg PO NOW STA Stop: 05/05/24 18:02 Last Admin: 05/05/24 18:28 Dose: 10 mg Documented By: WAYNE Discharge Plan Visit Data Chief Complaint: Hypertension Stated Complaint: HYPERTENSION ED Provider: Yasmani Valle Discharge Problem: Pre-eclampsia Patient Disposition: Admitted As Inpatient Forms Stand Alone Forms: My [facility] Hydrelis Prescriptions Prescriptions: No Action sertraline [Zoloft] 25 mg tablet 25 mg PO QAM Qty: 90 3RF (DME) Ketone Urine Test Strip See Rx Instructions .MEDSUPPLY Qty: 50 6RF Rx Instructions: As directed to check ketones in urine once a day in the morning (DME) OneTouch Verio test strips Strip See Rx Instructions .MEDSUPPLY Qty: 150 6RF Rx Instructions: check blood sugars 4 times a day (DME) lancets [OneTouch Delica Plus Lancet] 33 gauge misc See Rx Instructions .MEDSUPPLY Qty: 150 6RF Rx Instructions: As directed check blood sugars 4 times a day PNV cmb#95-ferrous fumarate-FA [] 28 mg iron- 800 mcg Tablet 1 tab PO DAILY Referrals Referrals: Judah Cummings CRNP [Primary Care Provider] - Discharge Problem: Pre-eclampsia Qualifiers: Trimester: second trimester Qualified Code(s): O14.92 - Unspecified pre- eclampsia, second trimester
[2024-05-05] MEDS: LABETALOL HCL IV 5 MG/ML 20ML IV STA (17:51)
[2024-05-05] MEDS: MAGNESIUM SULFATE 1GM / D5W BAG IV ONE (18:11)
[2024-05-05] MEDS: MAG SULFATE 4GM BOLUS FROM BAG IV ONE (18:16)
[2024-05-05 18:20] LABS: Basophils # (auto) 0.02 K/uL (0.00-0.20); Basophils % (auto) 0.2 %; Eosinophils # (auto) 0.13 K/uL (0.00-0.50); Eosinophils % (auto) 1.1 %; Hematocrit (blood only) 33.9 % (37.0-47.0); Immature Granulocytes # (auto) 0.05 K/uL (0.01-0.20); Immature Granulocytes % (auto) 0.4 %; Lymphocytes # (auto) 1.84 K/uL (1.20-3.40); Lymphocytes % (auto) 15.9 %; Mean Corpuscular Hemoglobin 30.2 pg (25.0-34.0); Mean Corpuscular Hgb Conc 35.4 g/dL (32.0-36.0); Mean Corpuscular Volume 85.2 fL (80.0-100.0); Mean Platelet Volume 10.6 fL (9.4-12.4); Monocytes # (auto) 0.58 K/uL (0.11-0.59); Neutrophils # (auto) 8.95 K/uL (1.40-6.50); Neutrophils % (auto) 77.4 %; Platelet Count 283 K/uL (130-400); RDW Coefficient of Variation 12.1 % (11.5-14.5); RDW Standard Deviation 37.2 fL (36.4-46.3); Red Blood Count 3.98 M/uL (4.20-5.40); White Blood Count 11.57 K/ul (4.8-10.8)
[2024-05-05] MEDS: NIFEdipine 10 MG CAP PO STA (18:28)
[2024-05-05 19:22] LABS: Albumin Level 3.7 gm/dl (3.4-5.0); Bilirubin,Total 0.3 mg/dl (0.2-1.0); Potassium 3.3 mmol/L (3.5-5.1)
--- NOTE | 2024-05-05 19:23 | History & Physical Report ---
Date of Service May 05, 2024 Assessment & Plan (1) Chronic hypertension during , antepartum: Plan: Visit GOPAL Calculator Estimated Delivery Date Method Current WG Current Estimate 09/08/24 Ultrasound #1 20w 0d Other Estimates 08/30/24 LMP (Certain) 21w 2d LMP: 11/24/23 : 2 Full term: 1 Premature: 0 Total Number of Induced Abortions: 0 Total Number of Spontaneous Abortions: 0 Ectopics: 0 Multiple births: 0 Number of Living Children: 1 and Delivery Plans GDM w/prior *Begin monthly Growth US's @24wks CHTN (Hx of Pre-Eclampsia with prior )- No current meds *Baby ASA daily start 12-28 wks, continue until delivery *wkly NST's @32wks and twice wkly @36 wks *Serial Growth US @ 24 (doppler only if abnml) *Baseline 24hr urine (additioinal PRN) *weekly VITALIY's @ 32wk(If on Meds) *Deliver [id number] (If on Meds) *Deliver [id number] (Not on Meds) Obesity (BMI between 35-39 @ beginning of )--35.3 *Growth US @ 32 wks *Weekly NSTs @ 36wks Rh Negative * Rhogam at 28 weeks Prior --12/27/22 *OK for DEYANIRA Hx of abnormal PAP--leep 06/21, first pap in october neg/neg Hepatits B Non Immune *Recommend Hep B Vaccine Patient had a significant elevated pressure before she has a history of chronic hypertension although was not being treated in this it looks at her last visit from the provider at the last visit in our group she had a 160/94 blo od pressure. It does not look like it was addressed specifically at that moment. My suspicion is since her labs are normal this is an elevation or worsening of her chronic hypertension and not preeclampsia I reached out to [facility] maternal- medicine spoke with them about the case my suspicion is aggravation of chronic hypertension magnesium was again started in the ER at that time I was dealing with another emergency Spoke with Dr. Christensen Unlikely preeclampsia considering the presentation especially with her history of chronic hypertension will observe overnight in labor and delivery I will start her on nifedipine 30 mg extended release and watch carefully repeat labs in the morning at this stage and do not view her as preeclamptic more observation of chronic hypertension [id number] time 50 minutes History of Present Illness Primary Care Provider: LASHAWN Rojas Patient had been advised by her office to proceed to the ER at 22 weeks her blood pressure was elevated she was initially extremely hypertensive the reason she felt her blood pressure was elevated is just the way she felt she had not taken it at home her initial blood pressures were quite high at the time I was dealing with another acute emergency I spoke to the emergency room doctor and at that time they gave IV labetalol 20 mg and then 10 mg p.o. of nifedipine her blood pressures since then have been quite more reasonable specifically 139/87 patient does not have a headache does not have any visual scotoma and she does not have any upper epigastric pain she does have a history of chronic hypertension Allergies Allergy/AdvReac Type Severity Reaction Status Date / Time lactose Allergy Gastrointestinal Verified 04/21/24 15:59 Upset Home Medications Medication Instructions Recorded Confirmed Type acetone (urine) test (Ketone Urine #50 ea 03/22/24 05/05/24 Rx Test strips) blood sugar diagnostic (OneTouch #150 ea 03/22/24 05/05/24 Rx Verio test strips) lancets 33 gauge (OneTouch Delica #150 ea 03/22/24 05/05/24 Rx Plus Lancet) sertraline 25 mg tablet (Zoloft) 25 mg PO QAM #90 tabs 03/24/24 05/05/24 Rx vit no.95-ferrous 1 tab PO DAILY 05/05/24 05/05/24 History fumarate 28 mg-folic acid 800 mcg tablet () Patient History Medical History (Updated 01/15/24 @ 13:42 by Yodit Grayson, MARCEL) Depression Hx of chest pain 2020, given stress test w/echo (at hospital in [place]), no cardiac findings- no chest pain since 2020 LIBERTY III (cervical intraepithelial neoplasia III) Chronic hypertension with superimposed preeclampsia Gestational diabetes Abnormal Pap smear of cervix Chronic hypertension affecting Hx of renal calculi passed on own Hx gestational diabetes Hypertension depression Surgical History (Updated 01/15/24 @ 13:42 by Yodit Grayson RN) H/O LEEP 05/2023 History of colposcopy with cervical biopsy Hx of section 11/2022 Family History Father Myocardial infarction Denies family history of Ovarian cancer Prostate cancer Heart disease Breast cancer Lung cancer Colorectal cancer Uterine cancer Stroke Social History Smoking Status: Never smoker Tobacco Type: Cigarettes Cigarettes Per Day: 7; Second Hand Exposure: No; Do You Dip or Chew Tobacco: No; Hx Alcohol Use: No Hx Substance Use: No Preferred Language: Turkmen Communication Ability: Effective Visual Impairment: Limited Hearing Ability: Normal Exchange Consultant Required: No Beliefs That Will Affect Care: None marital status: marital status details: Bismark (38) [phone] Current Living Situation: Spouse and Family Current Living Situation Comment: lives with FOB and child, no pets. current occupational status: employed current occupation: [employer] in [place] How many Children do You have: 1 Feels Safe at Home: Yes Childhood Exposure to Second-Hand Smoke: No Diet: regular caffeine: Yes Dental Care, Regularly: No Physical Activity Frequency: 5-6 Times per Week Seatbelt Use: always Sunscreen Use: Yes Assistive Devices: Glasses Physical Exam Constitutional: WD/WN, vitals as above well developed and well nourished Respiratory: normal respiratory effort, lungs clear to auscultation normal respiratory effort Cardiovascular: RRR, no murmur, no edema Gastrointestinal (Abdomen): normal bowel sounds, soft, nontender, no hepatosplenomegaly Results & Data Vital Signs (Past 12 Hours) Vital Signs Temp Pulse Pulse Resp BP BP Pulse Ox 05/05/24 19:00 93 H 15 98 05/05/24 18:54 100 H 14 97 05/05/24 18:45 96 H 19 139/87 97 05/05/24 18:35 96 H 19 141/88 H 97 05/05/24 18:30 93 H 16 139/87 97 05/05/24 18:25 99 H 19 141/90 H 95 05/05/24 18:25 99 H 141/83 H 05/05/24 18:20 98 H 19 141/83 H 96 05/05/24 18:15 98 H 16 97 05/05/24 18:00 105 H 05/05/24 17:52 102 H 18 97 05/05/24 17:52 105 H 17 165/109 H 97 05/05/24 17:51 108 H 168/109 H 05/05/24 17:50 111 H 19 165/109 H 05/05/24 17:27 98.4 F 130 H 20 210/145 H 97 O2 Del Method 05/05/24 19:00 05/05/24 18:54 05/05/24 18:45 Room Air 05/05/24 18:35 Room Air 05/05/24 18:30 05/05/24 18:25 Room Air 05/05/24 18:25 05/05/24 18:20 Room Air 05/05/24 18:15 05/05/24 18:00 05/05/24 17:52 Room Air 05/05/24 17:52 Room Air 05/05/24 17:51 05/05/24 17:50 05/05/24 17:27 Room Air Coding Level of Care Code 04699 OP VST EST HI 40 MIN Diagnoses Chronic hypertension during , antepartum O10.919
[2024-05-05 19:28] LABS: Albumin Globulin Ratio 1.2 (0.9-2); BUN Creatinine Ratio 7.6 (10-20); Creatinine Clr Calc Pharmacy 134.1 ml/min; Globulin 3.2 gm/dl (2.5-4.0); Total Protein 6.9 gm/dl (6.0-8.3)
[2024-05-05 19:57] LABS: Appearance Urine Clear (Clear); Bilirubin Urine Negative (Negative); Blood Urine Negative (Negative); Color Urine Yellow; Glucose Urine UA Negative (Negative); Ketones Urine Negative (Negative); Leukocyte Esterase Urine Negative (Negative); Nitrite Urine Negative (Negative); Protein Urine Negative (Negative); Urobilinogen Urine Negative (Negative)
[2024-05-05] MEDS: NIFEdipine EXTENDED REL 30 MG TABCR PO SCH (20:31)
[2024-05-06 06:03] LABS: Hematocrit (blood only) 35.4 % (37.0-47.0); Hemoglobin 12.2 g/dl (12.0-16.0); Mean Corpuscular Hgb Conc 34.5 g/dL (32.0-36.0); Mean Corpuscular Volume 87.2 fL (80.0-100.0); Mean Platelet Volume 10.3 fL (9.4-12.4); Platelet Count 269 K/uL (130-400); RDW Coefficient of Variation 12.5 % (11.5-14.5); RDW Standard Deviation 39.8 fL (36.4-46.3); Red Blood Count 4.06 M/uL (4.20-5.40); White Blood Count 9.97 K/ul (4.8-10.8)
[2024-05-06 06:24] LABS: Albumin Globulin Ratio 1.2 (0.9-2); Albumin Level 3.7 gm/dl (3.4-5.0); BUN Creatinine Ratio 8.6 (10-20); Bilirubin,Total 0.3 mg/dl (0.2-1.0); Calcium 8.4 mg/dl (8.6-10.3); Creatinine Clr Calc Pharmacy 162.2 ml/min; Globulin 3.2 gm/dl (2.5-4.0); Potassium 3.6 mmol/L (3.5-5.1); Total Protein 6.9 gm/dl (6.0-8.3)
--- NOTE | 2024-05-06 07:30 | Obstetrical Progress Note ---
Date of Service May 06, 2024 Assessment & Plan (1) Chronic hypertension during , antepartum: Admission and Anticipated Discharge Date Admission Date: May 05, 2024 Subjective Patient is well this morning she does not have a headache or any preeclampsia symptoms after speaking with M last night we likely think this is chronic hypertension exacerbation as opposed to preeclampsia there are some pending labs this morning she had 1 blood pressure that was elevated of his systolic over 170 have given a rescue dose of nifedipine we will keep her here until the blood pressures are more regulated I did discuss that Dr. Barahona is coming on we will discuss further management together Results & Data Vital Signs (Past 12 Hours) Vital Signs Temp Pulse Resp BP O2 Del Method 05/06/24 07:15 104 H 157/87 H 05/06/24 05:40 99 H 141/87 H 05/06/24 04:12 98.1 F 103 H 18 126/80 05/06/24 02:17 102 H 146/75 H 05/06/24 00:11 98.4 F 112 H 18 134/67 05/05/24 22:13 115 H 127/61 05/05/24 20:17 98.1 F 105 H 18 142/88 H Room Air 05/05/24 20:14 105 H 142/88 H 05/05/24 19:45 95 H 16 Room Air PG Care Time/CCT Total # of Minutes Spent Total Time Spent with Patient: Total time spent is greater than 50% in coordination of care (as documented) at patient's floor/unit and/or counseling patient: Coding Level of Care Code None Diagnoses Chronic hypertension during , antepartum O10.919
[2024-05-06] MEDS: NIFEdipine 10 MG CAP PO STA (07:36)
[2024-05-06] MEDS: SERTRALINE HCL 50 MG TABLET PO SCH (09:09)
--- NOTE | 2024-05-06 10:23 | Electrocardiogram Report ---
Test Reason : Blood Pressure : */* mmHG Vent. Rate : 105 BPM Atrial Rate : 105 BPM P-R Int : 136 ms QRS Dur : 74 ms QT Int : 328 ms P-R-T Axes : 26 26 21 degrees QTcB Int : 433 ms Sinus tachycardia Otherwise normal ECG No previous ECGs available Confirmed by Jayy Ramos ([id number]) on 05/06/2024 10:22:49 AM Referred By: REFERRED SELF Confirmed By: Jayy Ramos
[2024-05-06 10:47] LABS: Creatinine Urine Random 73.9 mg/dl; Protein Creatinine Ratio Urine 0.2 (0-0.2); Total Protein Urine Random 11.9 mg/dl (0-11.9)
[2024-05-06] MEDS: PRENATAL VITAMIN 1 TAB PO SCH (11:19)
[2024-05-06] MEDS: NIFEdipine EXTENDED REL 30 MG TABCR PO STA (13:13)
--- NOTE | 2024-05-06 20:14 | Obstetrical Progress Note ---
Date of Service May 06, 2024 Assessment & Plan Admission and Anticipated Discharge Date Admission Date: May 05, 2024 Subjective Presented to bedside to discuss plan with Radhika. Currently on Procardia XL 60 mg daily. Has needed 2 doses of fast acting nifedipine during the day as well. Next dose of Procardia XL is due in the morning. She has been normotensive to mild range blood pressures throughout most of the afternoon and into this evening. She continues deny any preeclampsia symptoms. Preeclampsia labs have been normal including a normal protein creatinine ratio. I recommend that we continue with blood pressure monitoring overnight and if blood pressures remain mild range to normotensive that we could likely discharge her in the morning. I discussed her diagnosis of chronic hypertension. Questions answered. Radhika is agreeable to spending the night. Will transition from L&D over to for management with every 4 hour blood pressure monitoring. Greater than 35 minutes has been involved in management of patient care, discussion and review of history Results & Data Vital Signs (Past 12 Hours) Vital Signs Temp Pulse Resp BP 05/06/24 19:46 36.7 C 121 H 18 119/72 05/06/24 18:46 122 H 126/73 05/06/24 17:46 121 H 140/83 05/06/24 16:46 36.9 C 123 H 18 132/83 05/06/24 15:33 123 H 135/73 05/06/24 15:03 116 H 146/83 H 05/06/24 14:48 109 H 146/84 H 05/06/24 14:33 36.9 C 05/06/24 14:33 120 H 143/83 H 05/06/24 14:18 120 H 142/85 H 05/06/24 14:03 117 H 157/85 H 05/06/24 13:59 114 H 148/79 H 05/06/24 13:49 113 H 153/83 H 05/06/24 13:33 112 H 176/109 H 05/06/24 13:18 112 H 165/103 H 05/06/24 13:04 110 H 174/105 H 05/06/24 12:48 115 H 148/82 H 05/06/24 12:34 115 H 154/90 H 05/06/24 12:18 104 H 167/101 H 05/06/24 12:03 114 H 165/93 H 05/06/24 11:57 114 H 177/101 H 11/07/24 11:56 113 H 177/107 H 05/06/24 11:30 36.9 C 16 05/06/24 11:17 118 H 143/88 H 05/06/24 10:38 116 H 148/86 H 05/06/24 10:03 120 H 133/77 05/06/24 09:28 115 H 05/06/24 09:28 145/75 H 05/06/24 09:28 113 H 168/86 H 05/06/24 09:07 115 H 130/67 05/06/24 08:27 110 H 131/75 PG Care Time/CCT Total # of Minutes Spent Total Time Spent with Patient: Total time spent is greater than 50% in coordination of care (as documented) at patient's floor/unit and/or counseling patient: Coding Level of Care Code 86124 SUB INP/OBS CARE 2/35MIN
--- NOTE | 2024-05-07 07:36 | Obstetrical Progress Note ---
Date of Service May 07, 2024 Assessment & Plan (1) Chronic hypertension during , antepartum: Plan: Radhika is a 28-year-old G2, P1 admitted for acute hypertension exacerbation in the setting of chronic hypertension as noted per HPI. Blood pressures have been mild range normotensive since increasing Procardia XL to 60 mg daily. Patient continues deny any preeclampsia symptoms and labs have been unremarkable including a normal protein creatinine ratio. Will discharge today with continued dosing of Procardia 60 mg daily. Has a visit with her primary care provider on Friday and recommend that she have a follow-up visit with us on Friday or of next week. Preeclampsia precautions again reviewed. Discussed risk of superimposed preeclampsia that may require inpatient management. All questions answered the patient Admission and Anticipated Discharge Date Admission Date: May 05, 2024 Subjective Radhika is a 28-year-old admitted for acute hypertensive exacerbation in the setting of chronic hypertension. Preeclampsia evaluation has been extensively performed and has been unremarkable including a negative protein creatinine ratio. Patient has remained asymptomatic. She is currently on Procardia XL 60 mg daily. Blood pressure has been well-controlled with this increased dose. She has remained normotensive throughout the night and has been mild range to normotensive since yesterday afternoon when the Procardia dose was increased. She is denying preeclampsia symptoms again today. Preeclampsia precautions reviewed. Patient is stable for outpatient care and will recommend that she follow-up with PCP as well for the diagnosis of chronic hypertension. Will plan for blood pressure check in clinic on Friday or Friday of next week. Patient stable for discharge Results & Data Vital Signs (Past 12 Hours) Vital Signs Temp Pulse Pulse Resp BP BP Pulse Ox 05/07/24 03:18 36.5 C 93 H 18 126/80 97 05/06/24 22:46 36.7 C 90 16 138/80 97 05/06/24 19:46 36.7 C 121 H 18 119/72 O2 Del Method 05/07/24 03:18 Room Air 05/06/24 22:46 Room Air 05/06/24 19:46 PG Care Time/CCT Total # of Minutes Spent Total Time Spent with Patient: Total time spent is greater than 50% in coordination of care (as documented) at patient's floor/unit and/or counseling patient: Coding Level of Care Code 35179 SUB INP/OBS CARE 2/35MIN Diagnoses Chronic hypertension during , antepartum O10.919
[2024-05-07 07:45] VITALS: O2SAT 98
[2024-05-07 08:56] VITALS: BP 126/78; RESP 14; TEMP 98.1
[2024-05-07] MEDS: NIFEdipine EXTENDED REL 30 MG TABCR PO SCH (09:10)
[2024-05-07 09:13] VITALS: PULSE 93
== END 2024-05-07 09:45 | disposition home or self-care (01) | DRG 833 ==
LOC: ED 17:24 → 4S1 18:57 → 4E2 05-06 20:27
DX: E66.9 Obesity, unspecified; O10.912 Unspecified pre-existing hypertension complicating pregnancy, second trimester; O99.212 Obesity complicating pregnancy, second trimester; F17.210 Nicotine dependence, cigarettes, uncomplicated; O99.332 Smoking (tobacco) complicating pregnancy, second trimester

== ENCOUNTER 2024-07-29 16:25 | Observation (INO) ==
[2024-07-29] MEDS: NIFEdipine 10 MG CAP PO STA ×2 (17:18→18:31)
[2024-07-29 17:51] LABS: Hematocrit (blood only) 35.9 % (37.0-47.0); Hemoglobin 12.6 g/dl (12.0-16.0); Mean Corpuscular Hemoglobin 30.1 pg (25.0-34.0); Mean Corpuscular Hgb Conc 35.1 g/dL (32.0-36.0); Mean Corpuscular Volume 85.7 fL (80.0-100.0); Mean Platelet Volume 10.8 fL (9.4-12.4); Platelet Count 228 K/uL (130-400); RDW Coefficient of Variation 12.7 % (11.5-14.5); RDW Standard Deviation 39.2 fL (36.4-46.3); Red Blood Count 4.19 M/uL (4.20-5.40); White Blood Count 10.76 K/ul (4.8-10.8)
[2024-07-29 18:01] LABS: Creatinine Urine Random 61.8 mg/dl; Protein Creatinine Ratio Urine 0.7 (0-0.2); Total Protein Urine Random 45.9 mg/dl (0-11.9)
[2024-07-29 18:03] LABS: Albumin Level 3.6 gm/dl (3.4-5.0); BUN Creatinine Ratio 11.4 (10-20); Bilirubin,Total 0.3 mg/dl (0.2-1.0); Calcium 8.9 mg/dl (8.6-10.3); Creatinine Clr Calc Pharmacy 139.3 ml/min; Globulin 3.5 gm/dl (2.5-4.0); Potassium 3.6 mmol/L (3.5-5.1); Total Protein 7.1 gm/dl (6.0-8.3)
[2024-07-29] MEDS: NIFEdipine 10 MG CAP ONE (18:42)
[2024-07-29 19:12] LABS: Uric Acid 5.4 mg/dl (2.6-7.2)
--- NOTE | 2024-07-29 19:39 | History & Physical Report ---
Date of Service July 29, 2024 Assessment & Plan (1) Pre-eclampsia superimposed on chronic hypertension: Plan: Labs performed - normal platelets, creatinine, liver enzymes. Elevated protein- creatinine ratio, giving her a new diagnosis now of superimposed preeclampsia. Given asymptomatic, normal labs and BP control with 2 doses Procardia 10mg, will consider this preeclampsia without severe features at this time. Reviewed MFM consult - will increase now from 60mg ProcardiaXL in AM and 30mg in PM to now 60mg AM and 60mg PM. Will give celestone 12mg - plan for repeat dose in 24h. Will plan for observation overnight, continue to monitor BPs. History of Present Illness Chief Complaint: elevated BP Primary Care Provider: LASHAWN Rojas 28yo @ 35 07/06, sent to L&D from office with elevated BP (160/120). Feeling well. No headache, no vision changes, no RUQ or epigastric pain. No N /V, eating normally. and Delivery Plans GDM w/prior *Begin monthly Growth US's @24wks CHTN (Hx of severe Pre-Eclampsia with prior at 37 weeks)- nifedipine 60XL at 23wks *EKG- 04/2024 *Maternal Echo *Baby ASA daily start 12-28 wks, continue until delivery *wkly NST's @32wks and twice wkly @36 wks *Serial Growth US @ 24 (doppler only if abnml) *Baseline 24hr urine (additioinal PRN) *weekly VITALIY's @ 32wk(If on Meds) *MFM consult 07/08/24 @ [facility] [place] goal bp <140/90, currently on nifedipine 60AM and 30PM but can increase to 120mg total daily -rec delivery 37-38 wks, if bp is challenging to control w/ continued escalating meds then delivery prior to 37 wks may be indicated. If develops pre-eclampsia w/o severe features, still 37wk. Obesity (BMI between 35-39 @ beginning of )--35.3 *Growth US @ 32 wks *Weekly NSTs @ 36wks Rh Negative * Rhogam at 28 weeks Prior --12/27/22 *OK for DEYANIRA C/S SCHEDULED FOR 08/27/[address] BOTELLO Hx of abnormal PAP--leep 06/21, first pap in october neg/neg Hepatits B Non Immune *Recommend Hep B Vaccine Allergies Allergy/AdvReac Type Severity Reaction Status Date / Time lactose Allergy Gastrointestinal Verified 07/29/24 15:44 Upset Home Medications Medication Instructions Recorded Confirmed Type acetone (urine) test (Ketone Urine #50 ea 03/22/24 07/29/24 Rx Test strips) blood sugar diagnostic (OneTouch #150 ea 03/22/24 07/29/24 Rx Verio test strips) lancets 33 gauge (OneTouch Delica #150 ea 03/22/24 07/29/24 Rx Plus Lancet) sertraline 25 mg tablet (Zoloft) 25 mg PO QAM #90 tabs 03/24/24 07/29/24 Rx vit no.95-ferrous 1 tab PO DAILY 05/05/24 07/29/24 History fumarate 28 mg-folic acid 800 mcg tablet () nifedipine 30 mg tablet,extended 60 mg (2 x 30 mg) PO QAM #60 tabs 05/07/24 07/29/24 Rx release 24 hr (Procardia XL) aspirin 81 mg chewable tablet 81 mg PO DAILY 05/10/24 07/29/24 History Patient History Medical History Depression Hx of chest pain LIBERTY III (cervical intraepithelial neoplasia III) Chronic hypertension with superimposed preeclampsia Gestational diabetes Abnormal Pap smear of cervix Chronic hypertension affecting Hx of renal calculi Hx gestational diabetes Hypertension depression Surgical History H/O LEEP History of colposcopy with cervical biopsy Hx of section Family History Father Myocardial infarction Denies family history of Ovarian cancer Prostate cancer Heart disease Breast cancer Lung cancer Colorectal cancer Uterine cancer Stroke Social History Smoking Status: Former smoker Tobacco Type: Cigarettes Second Hand Exposure: No; Do You Dip or Chew Tobacco: No; Hx Alcohol Use: No Hx Substance Use: No Preferred Language: Romansh Communication Ability: Effective Visual Impairment: Limited Hearing Ability: Normal Bowl Attendant Required: No Beliefs That Will Affect Care: None marital status: marital status details: Bismark (38) [phone] Current Living Situation: Spouse and Family Current Living Situation Comment: lives with FOB and child, no pets. current occupational status: employed current occupation: [employer] in [email or web address] How many Children do You have: 1 Other Information That Helps Us Care for You: No Feels Safe at Home: Yes Safety Concerns: Feels Safe At This Time Childhood Exposure to Second-Hand Smoke: No Diet: regular caffeine: Yes Dental Care, Regularly: No Physical Activity Frequency: 5-6 Times per Week Seatbelt Use: always Sunscreen Use: Yes Assistive Devices: None Review of Systems All systems reviewed & are unremarkable except as noted in HPI & below Physical Exam Physical Exam: FHT Cat 1 [place] none Constitutional: WD/WN, vitals as above Respiratory: normal respiratory effort, lungs clear to auscultation no respiratory distress Cardiovascular: Rate/Rhythm: regular rate and regular rhythm Gastrointestinal (Abdomen): Inspection/Auscultation: abdomen normal to inspection Percussion/Palpation: abdomen soft; abdomen nontender Gravid. No s/s chorio or abruption. Skin: no rashes, warm and dry Neurologic: 2+ DTRs Psychiatric: A+Ox3, euthymic affect Results & Data Vital Signs (Past 12 Hours) Vital Signs Temp Pulse Resp BP 07/29/24 19:07 93 H 144/85 H 07/29/24 18:57 97 H 145/88 H 07/29/24 18:47 103 H 140/87 07/29/24 18:37 96 H 165/112 H 07/29/24 18:07 97 H 161/100 H 07/29/24 17:47 93 H 18 167/96 H 07/29/24 17:03 93 H 175/108 H 07/29/24 16:53 36.7 C 18 07/29/24 16:53 85 173/105 H 07/29/24 16:43 97 H 166/97 H Coding Level of Care Code 84323 IN/OBS CONSULT LVL 3,45M Diagnoses Pre-eclampsia superimposed on chronic hypertension O11.9
[2024-07-29] MEDS: BETAMETH SOD PHOS/ACETATE IA 6 MG/ML IM STA (19:44)
[2024-07-29] MEDS: NIFEdipine EXTENDED REL 30 MG TABCR PO SCH (20:03)
[2024-07-29 23:22] VITALS: RESP 18
[2024-07-30 08:01] VITALS: TEMP 97.9
[2024-07-30] MEDS: PRENATAL VITAMIN 1 TAB PO SCH (08:18)
[2024-07-30] MEDS: ASPIRIN 81 MG CHEW PO SCH (08:49)
[2024-07-30] MEDS: SERTRALINE HCL 50 MG TABLET PO SCH (08:49)
--- NOTE | 2024-07-30 08:58 | Obstetrical Progress Note ---
Date of Service July 30, 2024 Assessment & Plan Admission and Anticipated Discharge Date Admission Date: July 29, 2024 Subjective Doing well this morning. FHT cat 1, [place] none. BPs have significantly improved. No further severe-range BPs. Will plan for 60mg Procardia XL BID. Will send Rx to pharmacy ([facility] per her request). She will follow up for BP check in office on Friday. Reviewed s/s preeclampsia - is aware of symptoms, would need to return immediately if these occur. Results & Data Vital Signs (Past 12 Hours) Vital Signs Temp Pulse Resp BP 07/30/24 08:13 93 H 141/76 H 07/30/24 07:45 18 07/30/24 07:45 36.6 C 18 07/30/24 07:13 99 H 129/78 07/30/24 05:55 87 142/88 H 07/30/24 04:55 91 H 119/66 07/30/24 03:55 97 H 120/66 07/30/24 02:55 107 H 127/74 07/30/24 01:55 102 H 129/67 07/30/24 00:55 87 112/64 07/29/24 23:55 105 H 123/72 07/29/24 22:55 100 H 122/70 07/29/24 22:28 36.8 C 95 H 18 126/72 07/29/24 21:28 96 H 124/70 07/29/24 21:27 14 07/29/24 21:27 14 PG Care Time/CCT Total # of Minutes Spent Total Time Spent with Patient: Total time spent is greater than 50% in coordination of care (as documented) at patient's floor/unit and/or counseling patient: Coding Level of Care Code None
[2024-07-30 09:07] VITALS: BP 142/95; PULSE 106
--- NOTE | 2024-08-03 22:18 | Discharge Summary ---
Date of Service August 03, 2024 Admission HPI Per Admitting Provider 28yo @ 35 07/06, sent to L&D from office with elevated BP (160/120). Feeling well. No headache, no vision changes, no RUQ or epigastric pain. No N/V, eating normally. and Delivery Plans GDM w/prior *Begin monthly Growth US's @24wks CHTN (Hx of severe Pre-Eclampsia with prior at 37 weeks)- nifedipine 60XL at 23wks *EKG- 04/2024 *Maternal Echo *Baby ASA daily start 12-28 wks, continue until delivery *wkly NST's @32wks and twice wkly @36 wks *Serial Growth US @ 24 (doppler only if abnml) *Baseline 24hr urine (additioinal PRN) *weekly VITALIY's @ 32wk(If on Meds) *MFM consult 07/08/24 @ [facility] [place] goal bp <140/90, currently on nifedipine 60AM and 30PM but can increase to 120mg total daily -rec delivery 37-38 wks, if bp is challenging to control w/ continued escalating meds then delivery prior to 37 wks may be indicated. If develops pre-eclampsia w/o severe features, still 37wk. Obesity (BMI between 35-39 @ beginning of )--35.3 *Growth US @ 32 wks *Weekly NSTs @ 36wks Rh Negative * Rhogam at 28 weeks Prior --12/27/22 *OK for DEYANIRA C/S SCHEDULED FOR 08/27/[address] BOTELLO Hx of abnormal PAP--leep 06/21, first pap in october neg/neg Hepatits B Non Immune *Recommend Hep B Vaccine Admission Exam (Per Admitting) Constitutional WD/WN, vitals as above Respiratory normal respiratory effort, lungs clear to auscultation no respiratory distress Cardiovascular Rate/Rhythm: regular rate and regular rhythm Gastrointestinal (Abdomen) Inspection/Auscultation: abdomen normal to inspection Percussion/Palpation: abdomen soft; abdomen nontender Skin no rashes, warm and dry Psychiatric A+Ox3, euthymic affect Hospital Course (1) Pre-eclampsia superimposed on chronic hypertension: Labs performed - normal platelets, creatinine, liver enzymes. Elevated protein- creatinine ratio, giving her a new diagnosis now of superimposed preeclampsia. Given asymptomatic, normal labs and BP control with 2 doses Procardia 10mg, will consider this preeclampsia without severe features at this time. Reviewed MFM consult - will increase now from 60mg ProcardiaXL in AM and 30mg in PM to now 60mg AM and 60mg PM. Will give celestone 12mg - plan for repeat dose in 24h. Will plan for observation overnight, continue to monitor BPs. Coding Level of Care Code None Diagnoses Pre-eclampsia superimposed on chronic hypertension O11.9
== END 2024-07-30 09:27 | disposition home or self-care (01) ==
LOC: OPB 16:25 → 4S1 16:25

== ENCOUNTER 2024-08-04 16:22 | Inpatient (IN) ==
[2024-08-04] MEDS: NIFEdipine 10 MG CAP PO STA (16:51)
[2024-08-04 17:03] LABS: Hematocrit (blood only) 35.7 % (37.0-47.0); Hemoglobin 12.5 g/dl (12.0-16.0); Mean Corpuscular Volume 85.6 fL (80.0-100.0); Mean Platelet Volume 10.6 fL (9.4-12.4); Platelet Count 264 K/uL (130-400); RDW Coefficient of Variation 12.8 % (11.5-14.5); RDW Standard Deviation 39.3 fL (36.4-46.3); Red Blood Count 4.17 M/uL (4.20-5.40); White Blood Count 13.05 K/ul (4.8-10.8)
[2024-08-04 17:19] LABS: Alanine Aminotransferase 11 U/L (7-52); Albumin Level 3.5 gm/dl (3.4-5.0); Alkaline Phosphatase 123 U/L (34-104); Anion Gap 10 (3-11); Aspartate Aminotransferase 14 U/L (13-39); BUN Creatinine Ratio 14.1 (10-20); Bilirubin Direct 0.1 mg/dl (0-0.2); Bilirubin,Total 0.2 mg/dl (0.2-1.0); Blood Urea Nitrogen 11 mg/dl (6-23); Calcium 8.4 mg/dl (8.6-10.3); Carbon Dioxide 20 mmol/L (21-32); Chloride 103 mmol/L (98-107); Globulin 3.4 gm/dl (2.5-4.0); Glucose 162 mg/dl (70-99(Fasting)); Potassium 3.7 mmol/L (3.5-5.1); Sodium 133 mmol/L (136-145); Total Protein 6.9 gm/dl (6.0-8.3)
[2024-08-04] MEDS ORDERED: OXYTOCIN 30 UNITS/NSS 30 UNITS/500 ML BAG IV PRN (17:29)
[2024-08-04] MEDS ORDERED: LACTATED RINGER'S 1,000 ML IV PRN (17:29)
[2024-08-04] MEDS ORDERED: CALCIUM CARBONATE 500 MG CHEWABLE TAB PO PRN (17:29)
[2024-08-04] MEDS ORDERED: LIDOCAINE 1% LOCAL 20 ML VIAL INFIL PRN (17:29)
[2024-08-04] MEDS: MAG SULFATE 4GM BOLUS FROM BAG IV ONE (18:13)
--- NOTE | 2024-08-04 18:21 | Anesthesiology Consultation ---
Date of Service August 04, 2024 Assessment & Plan (1) Encounter for pre-operative examination: Chart Review Chart Review: Acceptable Risk for Surgery (urgent) History Allergies Allergy/AdvReac Type Severity Reaction Status Date / Time lactose Allergy Gastrointestinal Verified 08/04/24 15:39 Upset Medications Home Medications Medication Instructions Recorded Confirmed Last Taken acetone (urine) test (Ketone Urine #50 ea 03/22/24 08/04/24 Unknown Test strips) blood sugar diagnostic (OneTouch #150 ea 03/22/24 08/04/24 Unknown Verio test strips) lancets 33 gauge (OneTouch Delica #150 ea 03/22/24 08/04/24 Unknown Plus Lancet) sertraline 25 mg tablet (Zoloft) 25 mg PO QAM #90 tabs 03/24/24 08/04/24 07/29/24 vit no.95-ferrous 1 tab PO DAILY 05/05/24 08/04/24 07/29/24 fumarate 28 mg-folic acid 800 mcg tablet () aspirin 81 mg chewable tablet 81 mg PO DAILY 05/10/24 08/04/24 07/29/24 nifedipine 60 mg tablet,extended 60 mg PO BID 30 days #60 tabs 07/30/24 08/04/24 Unknown release 24 hr (Procardia XL) Past Medical History Medical History (Updated 08/04/24 @ 18:21 by Bismark Adams MD) Depression LIBERTY III (cervical intraepithelial neoplasia III) Chronic hypertension with superimposed preeclampsia Gestational diabetes Hx of renal calculi passed on own Hypertension depression Past Family History Family History Father Myocardial infarction Denies family history of Ovarian cancer Prostate cancer Heart disease Breast cancer Lung cancer Colorectal cancer Uterine cancer Stroke Past Surgical History Surgical History H/O LEEP 05/2023 History of colposcopy with cervical biopsy Hx of section 11/2022 Social History Smoking Status: Never smoker Do You Dip or Chew Tobacco: No Hx Alcohol Use: No alcohol intake frequency: other Hx Substance Use: No substance use type: does not use Physical Exam Vital Signs Last Vital Signs Pulse 113 H 08/04/24 18:17 BP 169/105 H 08/04/24 18:17 Testing Laboratory Results 08/04/24 16:44 08/04/24 16:44
--- NOTE | 2024-08-04 18:22 | History & Physical Report ---
Date of Service August 04, 2024 Assessment & Plan (1) Severe pre-eclampsia: (2) Pre-eclampsia superimposed on chronic hypertension: (3) 35 weeks gestation of : Plan admit, iv, labs already reviewed. fhts categ 1. given unfavorable cx despite pt desire for , i cannot rec trial of labor. discussed with patient and she agrees. will move forward with repeat c/s. consent reviewed and signed. anesth notified. had previously discussed pt having delivery here with peds hospitalist who was agreeable, and with pt who preferred to stay here with knowledge of poss transfer of always exist. she understood and said she d/w her partner who agrees. we will move forward with delivery. History of Present Illness Chief Complaint: elevated bp Primary Care Provider: LASHAWN Rojas 28yo at 35 0/7 wks ega presents to from office with elevated bps. Patient with background CHTN and now preeclampsia. Max dosing of procardia xl of 60mg bid and now with elevated bps throught that. No granger or visual change. No ruq pain. She has seen [facility] and their recommendations reviewed. I contacted MFM Dr. Harry muhammad who happened to see her for the consult done on 07/08 and he recommended delivery for now preeclampsia with severe features(due to bps) superimposed on CHTN. PNC c/b 1. CHTN 2. GDM 3. Prior c/s, desires 4. Rh neg PNL rh neg, ri, gbs unknown. OB[facility]: c/s x 1--> severe preeclampsia at 38wks, induction, intol to labor. [facility]: nl paps, no stds Allergies Allergy/AdvReac Type Severity Reaction Status Date / Time lactose Allergy Gastrointestinal Verified 08/04/24 15:39 Upset Home Medications Medication Instructions Recorded Confirmed Type acetone (urine) test (Ketone Urine #50 ea 03/22/24 08/04/24 Rx Test strips) blood sugar diagnostic (OneTouch #150 ea 03/22/24 08/04/24 Rx Verio test strips) lancets 33 gauge (OneTouch Delica #150 ea 03/22/24 08/04/24 Rx Plus Lancet) sertraline 25 mg tablet (Zoloft) 25 mg PO QAM #90 tabs 03/24/24 08/04/24 Rx vit no.95-ferrous 1 tab PO DAILY 05/05/24 08/04/24 History fumarate 28 mg-folic acid 800 mcg tablet () aspirin 81 mg chewable tablet 81 mg PO DAILY 05/10/24 08/04/24 History nifedipine 60 mg tablet,extended 60 mg PO BID 30 days #60 tabs 07/30/24 08/04/24 Rx release 24 hr (Procardia XL) Patient History Medical History Depression Hx of chest pain 2020, given stress test w/echo (at [facility] in [place]), no cardiac findings- no chest pain since 2020 LIBERTY III (cervical intraepithelial neoplasia III) Chronic hypertension with superimposed preeclampsia Gestational diabetes Abnormal Pap smear of cervix Chronic hypertension affecting Hx of renal calculi passed on own Hx gestational diabetes Hypertension depression Surgical History H/O LEEP 05/2023 History of colposcopy with cervical biopsy Hx of section 11/2022 Family History Father Myocardial infarction Denies family history of Ovarian cancer Prostate cancer Heart disease Breast cancer Lung cancer Colorectal cancer Uterine cancer Stroke Social History Smoking Status: Never smoker Tobacco Type: Cigarettes Second Hand Exposure: No; Do You Dip or Chew Tobacco: No; Hx Alcohol Use: No Hx Substance Use: No Preferred Language: Turkmen Communication Ability: Effective Visual Impairment: Limited Hearing Ability: Normal Composition Mixer Required: No Beliefs That Will Affect Care: None marital status: marital status details: Bismark (38) [phone] Current Living Situation: Spouse and Family Current Living Situation Comment: lives with FOB and child, no pets. current occupational status: employed current occupation: [employer] in [place] How many Children do You have: 1 Feels Safe at Home: Yes Childhood Exposure to Second-Hand Smoke: No Diet: regular caffeine: Yes Dental Care, Regularly: No Physical Activity Frequency: 5-6 Times per Week Seatbelt Use: always Sunscreen Use: Yes Assistive Devices: None Review of Systems as per Subjective / HPI Physical Exam Constitutional: WD/WN, vitals as above Respiratory: normal respiratory effort, lungs clear to auscultation Cardiovascular: Rate/Rhythm: regular rate and regular rhythm Gastrointestinal (Abdomen): soft gravid nt efw 5-6# no ruq pains Musculoskeletal: tr edema nontender calves Neurologic: DTRs +3 no clonus Psychiatric: A+Ox3, euthymic affect Genitourinary: OB Exam Abdomen: + vertex (by u/s) Manual OB Exam: + cervical dilation (closed), + cervical effacement (long) and + station -2 OB Exam Monitor Tracing: + external FHT monitor used, + external uterine monitor used, + category I and + normal FHT variability Results & Data Vital Signs (Past 12 Hours) Vital Signs Pulse BP 08/04/24 18:12 105 H 162/103 H 08/04/24 17:11 99 H 157/95 H 08/04/24 16:39 113 H 176/108 H Coding Level of Care Code None Diagnoses Severe pre-eclampsia O14.10 Pre-eclampsia superimposed on chronic hypertension O11.9 35 weeks gestation of Z3A.35
[2024-08-04] MEDS: MAGNESIUM SULFATE / WTR 40 GM/1,000 ML BAG IV SCH (18:33)
[2024-08-04] MEDS: ACETAMINOPHEN 500 MG TAB PO ONE (18:35)
[2024-08-04] MEDS ORDERED: MoRPHine SULFATE PF 1 MG/ML 10 ML AMP/VIAL ONE (18:41)
[2024-08-04] MEDS: CITRIC ACID/SODIUM CITRATE 15 ML UDC PO SCH (18:42)
[2024-08-04] MEDS ORDERED: PHENYLEPHRINE HCL 10 MG/ML VIAL ONE (18:42)
[2024-08-04] MEDS ORDERED: DEXAMETHASONE SOD INJ 4 MG/ML VIAL ONE (18:43)
[2024-08-04] MEDS ORDERED: METOCLOPRAMIDE HCL INJ 5 MG/ML 2 ML VIAL ONE (18:43)
[2024-08-04] MEDS ORDERED: OXYTOCIN 10 UNITS/ML VIAL ONE (18:43)
[2024-08-04] MEDS ORDERED: ONDANSETRON INJ 2 MG/ML 2 ML VIAL ONE (18:43)
[2024-08-04] MEDS ORDERED: ceFAZolin 2,000 MG in SYRINGE 0 ML IV SCH (18:45)
[2024-08-04] MEDS: LABETALOL HCL IV 5 MG/ML 20ML IV STA (18:51)
[2024-08-04] MEDS ORDERED: oxyCODONE HCL IR 5 MG TAB (IMMEDIATE RELEASE) PO PRN (18:59)
[2024-08-04] MEDS ORDERED: ePHEDrine sulfate 50 MG/ML AMP IV PRN (18:59)
[2024-08-04] MEDS ORDERED: PROMETHAZINE 6.25 MG/50.25 ML BAG IV PRN (18:59)
[2024-08-04] MEDS ORDERED: NALOXONE HCL 0.08 MG in SYRINGE 1.8 ML IV PRN (18:59)
[2024-08-04] MEDS ORDERED: NALOXONE HCL 1 MG in SODIUM CHLORIDE 0.9% 1,000 ML IV PRN (18:59)
[2024-08-04] MEDS ORDERED: NALOXONE HCL 0.4 MG/1 ML VIAL/CARP IV PRN (18:59)
[2024-08-04] MEDS ORDERED: ONDANSETRON INJ 2 MG/ML 2 ML VIAL IV PRN ×2 (18:59→20:43)
[2024-08-04] MEDS ORDERED: NALBUPHINE HCL INJ 10 MG/ML AMP IV PRN (18:59)
[2024-08-04] MEDS ORDERED: MoRPHine SULFATE 2 MG/ML CARP IV PRN (18:59)
[2024-08-04] MEDS ORDERED: DC INTRASPINAL MORPHINE SCH (19:00)
[2024-08-04] MEDS ORDERED: NO NARCOTICS OR SEDATIVES SCH (19:00)
[2024-08-04] MEDS: ceFAZolin 3000MG 3,000 MG/72.5 ML BAG IV ONE (19:02)
[2024-08-04] MEDS ORDERED: SODIUM CHLORIDE 0.9% 50 ML IV PRN ×2 (19:21→22:59)
[2024-08-04] MEDS ORDERED: SODIUM CHLORIDE 0.9% 100 ML IV PRN ×2 (19:21→22:59)
[2024-08-04] MEDS ORDERED: ePHEDrine sulfate 50 MG/5 ML SYR ONE (19:31)
--- NOTE | 2024-08-04 20:15 | Operative Report ---
Post Operative Report Pre & Post Diagnosis Operation Date: 08/04/24 19:15 <No data on this case meets the specified criteria> 1. 35 wk iup 2. Preeclampsia with severe features, superimposed on chronic hypertension I identified the patient and participated in the time-out.: Yes Procedure Operation Date: 08/04/24 19:15 <No data on this case meets the specified criteria> Repeat Low Transverse Section Surgeon Thalia Weber MD, FACOG Dairy Worker RN Quantitative Blood Loss (QBL) 536 Findings Consistent with Post-Op Diagnosis (viable male apgars 8,9 normal uterus tubes and ovaries bilaterally) Fluids 1800 Specimens placenta, cord blood Drains mendez Anesthesia Type Spinal Complications none Disposition Accompanied Patient To Recovery: No Disposition: L&D Indications 28yo at 35wks for planned repeat c/s due to unfavorable cx and preeclampsia, severe, superimposed on chtn. Description of Procedure The patient was taken to the operating room and identified. After adequate anesthesia was obtained, she was placed in the supine position with a leftward tilt on the operating table and prepped and draped in the usual sterile fashion. A mendez catheter had already been placed. The knife was used to create a Pfannensteil skin incision that was carried down to the underlying layer of fascia. The fascia was nicked in the midline and this opening was extended laterally using Pimentel scissors. Gretta clamps were placed on the superior and inferior aspect of the fascial incision tenting it upward and the underlying rectus muscles were dissected off the overlying fascia both sharply and bluntly using Pimentel scissors. The rectus muscles were bluntly in the midline. The peritoneal cavity was bluntly entered into. This opening was stretched. The bladder blade was placed. The vesicouterine peritoneum was elevated and opened up into and the bladder flap was created digitally and bladder blade was replaced. The knife was used to create a hysterotomy and this opening was stretched. The operators hand was placed through the hysterotomy and the bladder blade was removed. The head was elevated and flexed and with fundal pressure the head was delivered. The shoulders and body were rapidly delivered. The cord was clamped and cut and the 's mouth and nares were bulb suction. The infant was handed off to the awaiting pediatricians. Cord blood was obtained. The placenta was manually expressed. The uterus was exteriorized and cleared of all clots and debris. Dilute IV Pitocin was begun. The uterine tone was improving. The hysterotomy was closed in a running interlocking fashion using 0 Vicryl followed by a second imbricating layer of 0 Vicryl. The hysterotomy was hemostatic. The pelvis was irrigated. The uterus was returned to the abdomen. The gutters were cleared of all clots and debris. The hysterotomy was reinspected and noted to be hemostatic. The fascia was then closed in running fashion using 0 Vicryl. The subcutaneous fat was copiously irrigated and reapproximated using 2-0 chromic. The skin was closed in a subcuticular fashion using 4-0 monocryl. At this point the procedure was terminated. The patient was transferred to the recovery room in stable condition. All sponge, lap and needle counts are correct x2. I attest to the content of the Intraoperative Record and any orders documented therein. Any exceptions are noted below. OB Procedure Charges 89361
[2024-08-04] MEDS ORDERED: ZOLPIDEM TARTRATE 5 MG TAB PO PRN (20:43)
[2024-08-04] MEDS ORDERED: diphenhydrAMINE Capsule 25 MG CAP PO PRN (20:43)
[2024-08-04] MEDS ORDERED: PROMETHAZINE 12.5 MG/50.5 ML BAG IV PRN (20:43)
[2024-08-04] MEDS ORDERED: BENZOCAINE 20% SPRY 85 APPLN/85 GM CAN EXT PRN (20:43)
[2024-08-04] MEDS ORDERED: HYDROCORTISONE ACETATE 25 MG SUPP PR PRN (20:43)
[2024-08-04] MEDS ORDERED: MAGNESIUM HYDROXIDE SUSP 30 ML UDC PO PRN (20:43)
[2024-08-04] MEDS ORDERED: SENNA 8.6 MG TAB PO PRN (20:43)
[2024-08-04] MEDS ORDERED: HYDROmorphone INJ 0.5 MG/0.5 ML SYR IV PRN (20:43)
[2024-08-04] MEDS ORDERED: diphenhydrAMINE 50 MG/ML VIAL IV PRN (20:43)
[2024-08-04] MEDS: KETOROLAC 30 MG/ML VIAL ONE (20:51)
[2024-08-04] MEDS: OXYTOCIN 20 UNITS/1002ML LR IV ONE (20:51)
[2024-08-04] MEDS: PENICILLIN GK 6 MU in SODIUM CHLORIDE 0.9% 250 ML IV STA (21:17)
[2024-08-04] MEDS: SODIUM CHLORIDE 0.9% 1,000 ML IV SCH (21:18)
[2024-08-04] MEDS: DIPHTHER/TETAN/PERTUS Vaccine (Tdap, Adol/Adult) 0.5mL IM ONE (21:19)
[2024-08-04] MEDS: LACTATED RINGER'S 1,000 ML IV SCH (21:21)
[2024-08-04] MEDS: MoRPHine SULFATE PF 1 MG/ML 10 ML AMP/VIAL INT SPINAL ONE (21:21)
[2024-08-04] MEDS: SIMETHICONE 80 MG CHEW PO SCH (21:21)
[2024-08-04] MEDS: OXYTOCIN 20 UNITS/LR 1,002 ML IV SCH (21:22)
[2024-08-04] MEDS: KETOROLAC 30 MG/ML VIAL IV SCH (21:22)
[2024-08-04] MEDS: DOCUSATE SODIUM 100 MG CAP PO SCH (21:22)
[2024-08-04] MEDS ORDERED: PENICILLIN GK 3 MU in DEXTROSE 5% 100 ML IV PRN (21:30)
--- NOTE | 2024-08-04 22:27 | Anesthesiology Progress Note ---
Date of Service August 04, 2024 Anesthesia Post Procedure Vital Signs Vital Signs: Temp Pulse Resp BP Pulse Ox 08/04/24 22:23 97 08/04/24 22:23 78 08/04/24 22:23 79 132/75 08/04/24 22:18 70 97 08/04/24 22:13 73 135/76 98 08/04/24 22:08 73 98 08/04/24 22:03 71 133/75 97 08/04/24 21:58 70 98 08/04/24 21:53 36.5 C 18 08/04/24 21:53 97 08/04/24 21:53 82 08/04/24 21:53 75 138/78 08/04/24 21:48 86 98 08/04/24 21:43 73 126/67 97 08/04/24 21:38 73 98 08/04/24 21:33 77 138/75 97 08/04/24 21:28 74 97 08/04/24 21:23 36.5 C 18 08/04/24 21:23 36.5 C 18 08/04/24 21:23 71 130/68 97 08/04/24 21:19 96 H 150/85 H 08/04/24 21:18 72 98 08/04/24 21:14 74 130/71 08/04/24 21:13 36.5 C 18 08/04/24 21:13 74 98 08/04/24 21:08 75 97 08/04/24 21:03 36.5 C 18 08/04/24 21:03 76 118/57 L 97 08/04/24 21:01 36.5 C 18 08/04/24 20:58 75 98 08/04/24 20:53 36.5 C 18 08/04/24 20:53 77 122/62 97 08/04/24 20:48 80 98 08/04/24 20:43 36.5 C 18 08/04/24 20:43 99 08/04/24 20:43 82 08/04/24 20:43 87 123/62 08/04/24 20:38 87 98 08/04/24 20:37 84 91 08/04/24 20:33 36.5 C 18 08/04/24 20:33 98 08/04/24 20:33 78 08/04/24 20:33 80 125/59 L 02/05/25 20:28 80 98 08/04/24 20:23 36.5 C 18 08/04/24 20:23 83 124/59 L 98 08/04/24 19:07 96 H 150/85 H 08/04/24 19:05 36.8 C 18 08/04/24 19:02 97 H 151/90 H 08/04/24 19:00 100 H 98 08/04/24 18:58 96 H 142/86 H 08/04/24 18:55 103 H 99 08/04/24 18:52 113 H 166/92 H 08/04/24 18:51 109 H 166/92 H 08/04/24 18:50 112 H 98 08/04/24 18:45 110 H 98 08/04/24 18:40 109 H 99 08/04/24 18:38 112 H 168/103 H 08/04/24 18:35 117 H 99 08/04/24 18:32 108 H 154/93 H 08/04/24 18:30 112 H 98 08/04/24 18:28 118 H 166/101 H 08/04/24 18:25 113 H 98 08/04/24 18:22 112 H 160/99 H 08/04/24 18:17 113 H 169/105 H 08/04/24 18:12 105 H 162/103 H 08/04/24 17:11 99 H 157/95 H 08/04/24 16:39 113 H 176/108 H Transfer of Care Handoff Completed per policy Notes Mental Status: alert / awake / arousable Patient Amnestic to Procedure: Yes Nausea / Vomiting: adequately controlled Pain: adequately controlled Airway Patency, RR, SpO2: stable & adequate BP & HR: stable & adequate Hydration State: stable & adequate Neuraxial Anesthesia: was administered and sensory block is resolving Anesthetic Complications: no major complications apparent
--- NOTE | 2024-08-04 22:59 | Obstetrical Progress Note ---
Date of Service August 04, 2024 Assessment & Plan (1) 35 weeks gestation of : (2) Severe pre-eclampsia: (3) S/P section: (4) PPH ( hemorrhage): Plan will cont with RISA, watch vitals. good urine output. mag infusing but presumably with her urine output, no concerning level. pt without sx. add kefzol x 3 doses q8 due to uterine exploration. pt and partner made aware of all that has gone on, they deny questions. aware that blood products may be needed. plan recheck hgb by 6h or sooner if needed. Admission and Anticipated Discharge Date Admission Date: August 04, 2024 Subjective CTSP due to pph, 900cc+ noted on recent fundal exam, apparently this was noted at end of her 2hr recovery pt resting at bedside, denies dizziness, lightheadness nursing notes large clots and bleeding despite on several checks prior and now with firm fundus mendez in place Review of Systems Constitutional: as per Subjective / HPI Physical Exam Genitourinary: bedside exam with large clots removed with bimanual exam, ff 2 down but MUSTAPHA open and measured about 300cc+, attempted to place RISA after this but angle and MUSTAPHA did not permit. 800mcg rectal cytotec given. TXA infusing. dilute pit infusing. BP 120/70, pulse in 70s, stat h/h ordered. bedside re-exam with another large clot and MUSTAPHA again not contracted, this time RISA able to be placed at least to MUSTAPHA and balloon inflated with 120cc, wall suction begun. Was still difficult placement so first I performed bedside us and device in cavity and then formal u/s also shows device not at fundus but in cavity with tip beyond hysterotomy. Small amount of drainage noted only to tubing. Hemoglobin returns at 10. 2units already T&C and held. pt continues to deny dizziness, lightheadedness. Results & Data Vital Signs (Past 12 Hours) Vital Signs Temp Pulse Resp BP Pulse Ox 08/04/24 22:53 81 99 08/04/24 22:51 86 132/68 08/04/24 22:48 77 98 08/04/24 22:43 80 99 08/04/24 22:41 70 134/71 08/04/24 22:38 73 98 02/05/25 22:33 67 97 08/04/24 22:31 76 128/71 08/04/24 22:28 76 98 08/04/24 22:23 97 08/04/24 22:23 78 08/04/24 22:23 79 132/75 08/04/24 22:21 97.7 F 18 08/04/24 22:18 70 97 08/04/24 22:13 73 135/76 98 08/04/24 22:08 73 98 08/04/24 22:03 71 133/75 97 08/04/24 21:58 70 98 08/04/24 21:53 97.7 F 18 08/04/24 21:53 97 08/04/24 21:53 82 08/04/24 21:53 75 138/78 08/04/24 21:48 86 98 08/04/24 21:43 73 126/67 97 08/04/24 21:38 73 98 08/04/24 21:33 77 138/75 97 08/04/24 21:28 74 97 08/04/24 21:23 97.7 F 18 08/04/24 21:23 97.7 F 18 08/04/24 21:23 71 130/68 97 08/04/24 21:19 96 H 150/85 H 08/04/24 21:18 72 98 08/04/24 21:14 74 130/71 08/04/24 21:13 97.7 F 18 08/04/24 21:13 74 98 08/04/24 21:08 75 97 08/04/24 21:03 97.7 F 18 08/04/24 21:03 76 118/57 L 97 08/04/24 21:01 97.7 F 18 08/04/24 20:58 75 98 08/04/24 20:53 97.7 F 18 08/04/24 20:53 77 122/62 97 08/04/24 20:48 80 98 08/04/24 20:43 97.7 F 18 08/04/24 20:43 99 08/04/24 20:43 82 08/04/24 20:43 87 123/62 08/04/24 20:38 87 98 08/04/24 20:37 84 91 08/04/24 20:33 97.7 F 18 08/04/24 20:33 98 08/04/24 20:33 78 08/04/24 20:33 80 125/59 L 08/04/24 20:28 80 98 08/04/24 20:23 97.7 F 18 08/04/24 20:23 83 124/59 L 98 08/04/24 19:07 96 H 150/85 H 08/04/24 19:05 98.2 F 18 08/04/24 19:02 97 H 151/90 H 08/04/24 19:00 100 H 98 08/04/24 18:58 96 H 142/86 H 08/04/24 18:55 103 H 99 08/04/24 18:52 113 H 166/92 H 08/04/24 18:51 109 H 166/92 H 08/04/24 18:50 112 H 98 08/04/24 18:45 110 H 98 08/04/24 18:40 109 H 99 08/04/24 18:38 112 H 168/103 H 08/04/24 18:35 117 H 99 08/04/24 18:32 108 H 154/93 H 08/04/24 18:30 112 H 98 08/04/24 18:28 118 H 166/101 H 08/04/24 18:25 113 H 98 08/04/24 18:22 112 H 160/99 H 08/04/24 18:17 113 H 169/105 H 08/04/24 18:12 105 H 162/103 H 08/04/24 17:11 99 H 157/95 H 08/04/24 16:39 113 H 176/108 H PG Care Time/CCT Total # of Minutes Spent Total Time Spent with Patient: Total time spent is greater than 50% in coordination of care (as documented) at patient's floor/unit and/or counseling patient: Coding Level of Care Code None Diagnoses 35 weeks gestation of Z3A.35 Severe pre-eclampsia O14.10 S/P section Z98.891 PPH ( hemorrhage) O72.1
[2024-08-04 23:10] LABS: Hematocrit (blood only) 29.9 % (37.0-47.0); Hemoglobin 10.6 g/dl (12.0-16.0)
[2024-08-04] MEDS: ceFAZolin 2000MG 2,000 MG/15 ML SYR IV SCH (23:12)
[2024-08-04] MEDS: miSOPROStoL 200 MCG TAB ONE (23:21)
[2024-08-04] MEDS: miSOPROStoL 200 MCG TAB PR ONE (23:21)
[2024-08-04] MEDS: TRANEXAMIC ACID / 0.7% NACL 1,000 MG/100 ML BAG IV STA (23:22)
[2024-08-04] MEDS: TRANEXAMIC ACID / 0.7% NACL 1000MG/100ML BAG IV ONE (23:22)
[2024-08-05] MEDS: LACTATED RINGER'S 1,000 ML IV SCH (00:17)
[2024-08-05] MEDS: SODIUM CHLORIDE 0.9% 1,000 ML IV SCH (00:18)
--- NOTE | 2024-08-05 00:35 | Ultrasound Report ---
EXAM: US pelvic complete CLINICAL HISTORY: [email or web address] . TECHNIQUE: Ultrasound examination of the pelvis was performed in real-time and duplex using trans-abdominal and trans-vaginal approaches. The vascular flow was evaluated using color flow and with a spectral pattern of the flow waveform. COMPARISON: 08/02/2024 FINDINGS: Uterus: Post changes of the uterus with unremarkable endometrium. RISA device noted as an echogenic linear structure within the uterine endometrium superior to the Cezerian section scar with excessive shadowing obscuring proper visualization of the mid uterus and cervix. IMPRESSION: 1. Post changes.(New finding) 2. Intrauterine RISA device with appropriate endometrial position just superior to the scar. (New finding) RECOMMENDATIONS: Clinical correlation with symptoms and further evaluation as indicated. Electronically signed by Long Thrasher 08-05-2024 12:34 AM
[2024-08-05] MEDS: ACETAMINOPHEN 325 MG TAB PO SCH (02:24)
[2024-08-05] MEDS: diphenhydrAMINE 50 MG/ML VIAL IV PRN (03:07)
[2024-08-05 03:57] LABS: Basophils # (auto) 0.03 K/uL (0.00-0.20); Basophils % (auto) 0.1 %; Hematocrit (blood only) 23.2 % (37.0-47.0); Immature Granulocytes % (auto) 0.5 %; Lymphocytes # (auto) 1.82 K/uL (1.20-3.40); Lymphocytes % (auto) 8.9 %; Mean Corpuscular Hemoglobin 30.2 pg (25.0-34.0); Mean Corpuscular Hgb Conc 34.5 g/dL (32.0-36.0); Mean Corpuscular Volume 87.5 fL (80.0-100.0); Monocytes # (auto) 0.92 K/uL (0.11-0.59); Monocytes % (auto) 4.5 %; Neutrophils # (auto) 17.65 K/uL (1.40-6.50); Platelet Count 238 K/uL (130-400); RDW Coefficient of Variation 12.9 % (11.5-14.5); Red Blood Count 2.65 M/uL (4.20-5.40); White Blood Count 20.52 K/ul (4.8-10.8)
[2024-08-05] MEDS ORDERED: CITRIC ACID/SODIUM CITRATE 15 ML UDC PO SCH (06:00)
[2024-08-05 06:01] LABS: Basophils # (auto) 0.03 K/uL (0.00-0.20); Basophils % (auto) 0.2 %; Hematocrit (blood only) 22.5 % (37.0-47.0); Hemoglobin 7.8 g/dl (12.0-16.0); Immature Granulocytes % (auto) 0.5 %; Lymphocytes # (auto) 2.26 K/uL (1.20-3.40); Lymphocytes % (auto) 11.6 %; Mean Corpuscular Hgb Conc 34.7 g/dL (32.0-36.0); Mean Corpuscular Volume 86.5 fL (80.0-100.0); Mean Platelet Volume 11.1 fL (9.4-12.4); Monocytes # (auto) 0.84 K/uL (0.11-0.59); Monocytes % (auto) 4.3 %; Neutrophils # (auto) 16.25 K/uL (1.40-6.50); Neutrophils % (auto) 83.4 %; Platelet Count 217 K/uL (130-400); RDW Coefficient of Variation 12.8 % (11.5-14.5); RDW Standard Deviation 40.5 fL (36.4-46.3); White Blood Count 19.48 K/ul (4.8-10.8)
--- NOTE | 2024-08-05 06:20 | Obstetrical Progress Note ---
Date of Service August 05, 2024 Assessment & Plan (1) Severe pre-eclampsia: (2) S/P section: (3) PPH ( hemorrhage): Plan Cont with magnesium sulfate for full 24hr, seizure prophylaxis. bps are low, hold on any anti-htn, urine output improved and likely will go back to 2g/hr, briefly dec to 1g/hr when urine output low. PPH, total 2300cc, last hgb 8, will recheck in 4-6hr from then. 2u PRBCs ready. pt aware of indications for transfusion, she opted to see what next hgb looked like. seemingly no ongoing losses Cont current care. Admission and Anticipated Discharge Date Admission Date: August 04, 2024 Subjective pt resting, feels better. no cp or sob. no pain issues. Review of Systems Constitutional: as per Subjective / HPI Physical Exam Constitutional: WD/WN, vitals as above Gastrointestinal (Abdomen): Inspection/Auscultation: abdomen normal to inspection and + abdominal surgical incision (dressing c/d/i) Percussion/Palpation: abdomen soft Fundus firm 2cm down Musculoskeletal: nt calves tr edema Neurologic: dtrs +1 Psychiatric: A+Ox3, euthymic affect Genitourinary: jossie removed. Results & Data Vital Signs (Past 12 Hours) Vital Signs Temp Pulse Resp BP Pulse Ox 08/05/24 06:13 80 97 08/05/24 06:11 80 120/56 L 08/05/24 06:08 78 97 08/05/24 06:03 76 97 08/05/24 06:01 75 122/58 L 08/05/24 06:00 18 08/05/24 05:58 74 98 08/05/24 05:53 91 H 98 08/05/24 05:51 83 136/77 08/05/24 05:48 84 97 08/05/24 05:43 76 97 08/05/24 05:41 72 120/63 08/05/24 05:38 74 98 08/05/24 05:33 76 98 08/05/24 05:31 73 115/64 08/05/24 05:28 78 99 08/05/24 05:23 76 97 08/05/24 05:21 75 110/56 L 08/05/24 05:18 75 95 08/05/24 05:13 75 97 08/05/24 05:11 74 108/59 L 08/05/24 05:08 69 97 08/05/24 05:03 82 96 08/05/24 05:02 74 94 08/05/24 05:01 71 106/56 L 08/05/24 04:58 80 96 08/05/24 04:57 75 94 08/05/24 04:53 75 97 08/05/24 04:51 72 113/62 08/05/24 04:48 97 08/05/24 04:48 72 08/05/24 04:48 73 91 08/05/24 04:43 76 99 08/05/24 04:41 74 116/68 94 08/05/24 04:38 74 97 08/05/24 04:33 71 98 08/05/24 04:32 90 119/54 L 08/05/24 04:29 75 92 08/05/24 04:28 74 97 08/05/24 04:23 76 95 08/05/24 04:21 76 115/65 08/05/24 04:18 73 97 08/05/24 04:13 74 98 08/05/24 04:11 73 127/74 08/05/24 04:09 76 92 08/05/24 04:08 71 100 08/05/24 04:03 74 98 08/05/24 04:01 74 117/59 L 08/05/24 04:00 18 08/05/24 03:58 78 96 08/05/24 03:53 75 97 08/05/24 03:51 73 114/60 08/05/24 03:48 77 97 08/05/24 03:43 70 99 08/05/24 03:41 71 115/69 08/05/24 03:38 75 97 08/05/24 03:33 75 97 08/05/24 03:31 71 116/70 08/05/24 03:28 74 98 08/05/24 03:23 69 98 08/05/24 03:21 71 122/73 08/05/24 03:18 70 98 08/05/24 03:13 71 99 08/05/24 03:11 83 149/91 H 08/05/24 03:08 74 99 08/05/24 03:03 74 98 08/05/24 03:01 81 141/66 H 08/05/24 03:00 97.9 F 18 08/05/24 03:00 18 08/05/24 02:58 75 97 08/05/24 02:53 75 99 08/05/24 02:51 75 129/64 08/05/24 02:48 79 99 08/05/24 02:43 74 98 08/05/24 02:41 78 140/71 08/05/24 02:38 76 98 08/05/24 02:33 76 99 08/05/24 02:31 72 137/73 08/05/24 02:28 80 100 08/05/24 02:23 86 97 08/05/24 02:21 77 115/57 L 08/05/24 02:18 76 96 08/05/24 02:16 83 92 08/05/24 02:13 72 97 08/05/24 02:11 72 115/56 L 08/05/24 02:08 73 95 08/05/24 02:03 76 95 08/05/24 02:01 72 115/58 L 08/05/24 02:00 18 08/05/24 01:58 77 96 08/05/24 01:56 81 92 08/05/24 01:53 76 97 08/05/24 01:51 79 121/59 L 08/05/24 01:48 75 97 08/05/24 01:43 81 99 08/05/24 01:41 74 112/55 L 08/05/24 01:38 78 97 08/05/24 01:33 73 97 08/05/24 01:31 72 120/58 L 08/05/24 01:28 81 98 08/05/24 01:23 87 99 08/05/24 01:21 83 124/61 08/05/24 01:18 71 98 08/05/24 01:13 73 99 08/05/24 01:11 78 118/56 L 08/05/24 01:08 84 99 08/05/24 01:03 68 100 08/05/24 01:01 71 118/58 L 08/05/24 01:00 18 08/05/24 00:58 73 97 08/05/24 00:53 78 100 08/05/24 00:51 77 117/57 L 08/05/24 00:48 83 99 08/05/24 00:43 87 98 02/06/25 00:41 78 94/53 L 08/05/24 00:38 77 98 08/05/24 00:36 77 88/46 L 08/05/24 00:33 80 98 08/05/24 00:31 85 97/54 L 08/05/24 00:28 80 98 08/05/24 00:23 80 99 08/05/24 00:21 77 114/58 L 08/05/24 00:18 83 99 08/05/24 00:13 91 H 99 08/05/24 00:11 86 118/58 L 08/05/24 00:08 85 100 08/05/24 00:03 87 99 08/05/24 00:01 83 131/74 08/05/24 00:00 18 08/04/24 23:58 94 H 99 08/04/24 23:53 86 100 08/04/24 23:48 96 H 98 08/04/24 23:43 86 99 08/04/24 23:41 88 116/69 08/04/24 23:38 81 98 08/04/24 23:33 77 97 08/04/24 23:31 84 115/57 L 08/04/24 23:28 85 98 08/04/24 23:23 76 98 08/04/24 23:21 83 123/62 08/04/24 23:18 81 99 08/04/24 23:13 80 98 08/04/24 23:11 83 125/62 08/04/24 23:08 89 98 08/04/24 23:03 81 99 08/04/24 23:01 78 130/65 08/04/24 23:00 18 08/04/24 22:58 88 99 08/04/24 22:53 81 99 08/04/24 22:51 86 132/68 08/04/24 22:48 77 98 08/04/24 22:43 80 99 08/04/24 22:41 70 134/71 08/04/24 22:38 73 98 08/04/24 22:33 67 97 08/04/24 22:31 76 128/71 08/04/24 22:28 76 98 08/04/24 22:23 97 08/04/24 22:23 78 08/04/24 22:23 79 132/75 08/04/24 22:21 97.7 F 18 08/04/24 22:18 70 97 08/04/24 22:13 73 135/76 98 08/04/24 22:08 73 98 08/04/24 22:03 71 133/75 97 08/04/24 22:00 18 08/04/24 21:58 70 98 08/04/24 21:53 97.7 F 18 08/04/24 21:53 97 08/04/24 21:53 82 08/04/24 21:53 75 138/78 08/04/24 21:48 86 98 08/04/24 21:43 73 126/67 97 08/04/24 21:38 73 98 08/04/24 21:33 77 138/75 97 08/04/24 21:28 74 97 08/04/24 21:23 97.7 F 18 08/04/24 21:23 97.7 F 18 08/04/24 21:23 71 130/68 97 08/04/24 21:19 96 H 150/85 H 08/04/24 21:18 72 98 08/04/24 21:14 74 130/71 08/04/24 21:13 97.7 F 18 08/04/24 21:13 74 98 08/04/24 21:08 75 97 08/04/24 21:03 97.7 F 18 08/04/24 21:03 76 118/57 L 97 08/04/24 21:01 97.7 F 18 08/04/24 21:00 15 08/04/24 20:58 75 98 08/04/24 20:53 97.7 F 18 08/04/24 20:53 77 122/62 97 08/04/24 20:48 80 98 08/04/24 20:43 97.7 F 18 08/04/24 20:43 99 08/04/24 20:43 82 08/04/24 20:43 87 123/62 08/04/24 20:38 87 98 08/04/24 20:37 84 91 08/04/24 20:33 97.7 F 18 08/04/24 20:33 98 08/04/24 20:33 78 08/04/24 20:33 80 125/59 L 08/04/24 20:28 80 98 08/04/24 20:23 97.7 F 18 08/04/24 20:23 83 124/59 L 98 08/04/24 19:07 96 H 150/85 H 08/04/24 19:05 98.2 F 18 08/04/24 19:02 97 H 151/90 H 08/04/24 19:00 18 08/04/24 19:00 100 H 98 08/04/24 18:58 96 H 142/86 H 08/04/24 18:55 103 H 99 08/04/24 18:52 113 H 166/92 H 08/04/24 18:51 109 H 166/92 H 08/04/24 18:50 112 H 98 08/04/24 18:45 110 H 98 08/04/24 18:40 109 H 99 08/04/24 18:38 112 H 168/103 H 08/04/24 18:35 117 H 99 08/04/24 18:32 108 H 154/93 H 08/04/24 18:30 112 H 98 08/04/24 18:28 118 H 166/101 H 08/04/24 18:25 113 H 98 08/04/24 18:22 112 H 160/99 H PG Care Time/CCT Total # of Minutes Spent Total Time Spent with Patient: Total time spent is greater than 50% in coordination of care (as documented) at patient's floor/unit and/or counseling patient: Coding Level of Care Code None Diagnoses Severe pre-eclampsia O14.10 S/P section Z98.891 PPH ( hemorrhage) O72.1
[2024-08-05 06:29] LABS: Polychromasia 2+
[2024-08-05 07:16] LABS: Hematocrit (blood only) 21.6 % (37.0-47.0); Hemoglobin 7.5 g/dl (12.0-16.0)
[2024-08-05] MEDS: PRENATAL VITAMIN 1 TAB PO SCH (08:33)
[2024-08-05] MEDS: SERTRALINE HCL 50 MG TABLET PO SCH (08:34)
[2024-08-05] MEDS: FERROUS SULFATE 325 MG TAB PO SCH (08:34)
[2024-08-05] MEDS ORDERED: NIFEdipine EXTENDED REL 30 MG TABCR PO SCH (09:00)
[2024-08-05 18:31] LABS: Hematocrit (blood only) 17.9 % (37.0-47.0); Hemoglobin 6.2 g/dl (12.0-16.0); Mean Corpuscular Hemoglobin 30.1 pg (25.0-34.0); Mean Corpuscular Hgb Conc 34.6 g/dL (32.0-36.0); Mean Corpuscular Volume 86.9 fL (80.0-100.0); Mean Platelet Volume 10.8 fL (9.4-12.4); Platelet Count 193 K/uL (130-400); RDW Coefficient of Variation 13.2 % (11.5-14.5); RDW Standard Deviation 41.2 fL (36.4-46.3); Red Blood Count 2.06 M/uL (4.20-5.40); White Blood Count 12.17 K/ul (4.8-10.8)
[2024-08-05] MEDS ORDERED: SODIUM CHLORIDE 0.9% 50 ML IV PRN (18:38)
[2024-08-05] MEDS ORDERED: SODIUM CHLORIDE 0.9% 100 ML IV PRN (18:38)
[2024-08-05] MEDS: IBUPROFEN 600 MG TAB PO SCH (20:19)
[2024-08-05] MEDS: bisacodyL 5 MG TABEC PO SCH (20:19)
[2024-08-05] MEDS ORDERED: KETOROLAC 30 MG/ML VIAL IV PRN (20:30)
[2024-08-05] MEDS: [UNRECOGNIZED DRUG - REMARK] ONE (20:39)
[2024-08-06 06:07] LABS: Hematocrit (blood only) 24.9 % (37.0-47.0); Hemoglobin 8.6 g/dl (12.0-16.0)
--- NOTE | 2024-08-06 07:57 | Obstetrical Progress Note ---
Date of Service August 06, 2024 Assessment & Plan (1) S/P section: Plan: 28 years , 2nd POD following delivery for repeat CS and Severe preeclampsia at 35 weeks POG. No active complain Both mom and baby doing well today Continue care as per protocol. Encouraged nursing with mother's milk. Encouraged ambulation. Encouraged deep breathing. (2) PPH ( hemorrhage): Plan: 2300 ml Blood loss immediate post . Vitals stable now, BP has started increasing; will follow trend S/P 2 Unit transfusion Latest Hb: 8.6 gm%. (3) Severe pre-eclampsia: Plan: No premonitory s/s today. Vitals stable now, BP: 137/94 has started increasing; will follow trend. On admission BP as high as 176/120. Completed MgSO4 for 24 hours. Urine Output normal. If BP increases today, will start her on antihypertensives as she had chronic HTN. (4) Pre-eclampsia superimposed on chronic hypertension: Admission and Anticipated Discharge Date Admission Date: August 04, 2024 Supervising Physician Co-Signing Physician Notes Resident Physician Supervision Note: I was present with Dr. Banuelos during the history and exam. I discussed the case with the resident and agree with the findings and plan as documented in the note. Any exceptions or clarifications are listed here: [None] Documented By: Ran Jerez MD, FACOG Subjective 28 years , 2nd POD following delivery for repeat CS and Severe preeclampsia at 35 weeks POG. No active complains Both mom and baby doing well. Mom Lying comfortable on bed. Pain: Mild, intermittent, manageable on painkillers. Lochia: Moderate Diet: Regular OB diet Gas: Not aware of passing, but no abdominal distension Peeing: Passed Urine after mendez's removal Ambulation: to Bathroom/ Corridor without any complication Answered her queries. Review of Systems Review of Systems: No SOB, chest pain, leg pain No dizziness, headache, palpitation No Blurring of vision , fever Physical Exam Physical Exam: General: Alert and oriented. No acute distress. CVS: S1 S2+ No murmurs, regular rhythm. Respiratory: CTA bilaterally. No rhonchi, wheezes, or crackles. No increased work of breathing. Abdomen: Bowel sound +. Soft, nontender Uterus: Fundus firm and palpable few cm below the umbilicus. Incision site looks healthy: Dry, No swelling, Erythema Lower extremities: No LE edema. No deep calf pain. Results & Data Vital Signs (Past 12 Hours) Vital Signs Temp Pulse Resp BP Pulse Ox 08/06/24 06:40 137/94 08/06/24 02:52 72 156/94 H 08/06/24 02:50 36.8 C 20 08/06/24 00:00 37.1 C 20 08/05/24 23:50 95 H 150/83 H 08/05/24 23:49 108 H 98 08/05/24 23:44 96 H 97 08/05/24 23:39 85 96 08/05/24 23:35 87 149/81 H 08/05/24 23:34 90 97 08/05/24 23:29 102 H 96 08/05/24 23:24 94 H 97 08/05/24 23:20 90 125/63 08/05/24 23:19 92 H 96 08/05/24 23:14 90 96 08/05/24 23:09 92 H 96 08/05/24 23:05 82 129/67 08/05/24 23:04 86 97 08/05/24 22:59 93 H 95 08/05/24 22:54 91 H 96 08/05/24 22:50 93 H 131/69 08/05/24 22:49 37.1 C 89 14 131/69 98 08/05/24 22:49 93 H 95 08/05/24 22:44 90 96 08/05/24 22:39 91 H 96 08/05/24 22:35 88 132/72 08/05/24 22:34 92 H 95 08/05/24 22:29 90 96 08/05/24 22:24 98 H 96 08/05/24 22:20 96 H 138/78 08/05/24 22:19 37.1 C 93 H 16 138/78 97 08/05/24 22:19 93 H 96 08/05/24 22:14 104 H 96 08/05/24 22:09 96 H 95 08/05/24 22:04 37.1 C 87 16 116/67 96 08/05/24 22:04 85 116/67 96 08/05/24 22:01 97 H 94 08/05/24 21:59 91 H 96 08/05/24 21:54 95 H 95 08/05/24 21:49 37.2 C 95 H 18 130/73 97 08/05/24 21:49 92 H 96 08/05/24 21:48 94 H 130/73 08/05/24 21:44 90 96 08/05/24 21:39 87 96 08/05/24 21:34 93 H 96 08/05/24 21:29 97 H 98 08/05/24 21:24 93 H 97 08/05/24 21:21 88 129/67 08/05/24 21:19 91 H 97 08/05/24 21:14 89 97 08/05/24 21:09 89 97 08/05/24 21:04 93 H 99 08/05/24 20:59 93 H 99 08/05/24 20:54 101 H 98 08/05/24 20:49 85 98 08/05/24 20:47 36.7 C 87 18 143/85 H 99 08/05/24 20:47 96 H 143/85 H 08/05/24 20:44 95 H 98 08/05/24 20:39 99 H 98 08/05/24 20:38 96 H 89 L 08/05/24 20:34 102 H 100 08/05/24 20:32 91 H 138/79 08/05/24 20:29 90 99 08/05/24 20:24 96 H 99 08/05/24 20:19 94 H 100 08/05/24 20:17 36.5 C 97 H 20 130/77 100 08/05/24 20:17 82 130/77 08/05/24 20:14 95 H 98 08/05/24 20:11 20 98 08/05/24 20:09 105 H 98 08/05/24 20:05 107 H 93 08/05/24 20:04 100 H 99 08/05/24 20:02 37.1 C 84 18 120/69 98 08/05/24 20:02 86 120/69 08/05/24 20:00 18 08/05/24 19:59 92 H 98 08/05/24 19:54 91 H 99 Resident Activity Tracking Resident Involvement: Resident Care Provided Care Provided: OB Delivery
[2024-08-06] MEDS: NIFEdipine EXTENDED REL 30 MG TABCR PO SCH (08:43)
[2024-08-06 19:24] VITALS: RESP 16
[2024-08-06] MEDS: IBUPROFEN 600 MG TAB PO PRN (20:17)
[2024-08-06 23:21] VITALS: O2SAT 98
--- NOTE | 2024-08-07 07:56 | Obstetrical Progress Note ---
Date of Service August 07, 2024 Assessment & Plan (1) S/P section: Plan: 28 years , 3rd POD following delivery for repeat CS and Severe preeclampsia at 35 weeks POG. No active complain Both mom and baby doing well today Encouraged nursing with mother's milk. Encouraged ambulation. Encouraged deep breathing. DC today (2) PPH ( hemorrhage): Plan: 2300 ml Blood loss immediate post . Vitals stable S/P 2 Unit transfusion Latest Hb: 8.6 gm%. will send on Iron. Encouraged Iron rich diet. (3) Severe pre-eclampsia: Plan: No premonitory s/s today. Vitals stable now, BP stable after Nifedipine 60 mg once daily. F/U for BP check at office Friday/ Friday. Plan to decrease Nifedipine and taper dose if possible. Explained her the process. She can skip dose if BP is low at home. F/U with PCP in 6 weeks for further mgmt of BP. (4) Pre-eclampsia superimposed on chronic hypertension: Admission and Anticipated Discharge Date Admission Date: August 04, 2024 Supervising Physician Co-Signing Physician Notes Resident Physician Supervision Note: I interviewed and examined the patient. Discussed with Dr. Verduzco and agree with findings and plan as documented in the note. Any exceptions or clarifications are listed here: POD3 s/p rCS c/b cHTN w/ superimposed PET w/ SF. s/p 2u prbc and mag, currently on nifedipine 60XL/d. Feeling well, meeting all postop milestones. BPs have been stable on 60/d so will dc on nifedipine 60/d and send msg for bp check mon AM. PIH precautions reviewed Documented By: Zakiya Rollins MD Subjective 28 years , 3rd POD following delivery for repeat CS and Severe preeclampsia at 35 weeks POG. No active complains Both mom and baby doing well. Mom Lying comfortable on bed. Pain: Mild, intermittent, manageable on painkillers. Lochia: Moderate Diet: Regular OB diet Gas: Passes Peeing: normal Ambulation: without any complication Answered her queries. Review of Systems Review of Systems: No SOB, chest pain, leg pain No dizziness, headache, palpitation No Blurring of vision , fever Physical Exam Physical Exam: General: Alert and oriented. No acute distress. CVS: S1 S2+ No murmurs, regular rhythm. Respiratory: CTA bilaterally. No rhonchi, wheezes, or crackles. No increased work of breathing. Abdomen: Bowel sound +. Soft, nontender Uterus: Fundus firm and palpable few cm below the umbilicus. Incision site looks healthy: Dry, No swelling, Erythema Lower extremities: No LE edema. No deep calf pain. Results & Data Vital Signs (Past 12 Hours) Vital Signs Temp Pulse Resp BP Pulse Ox O2 Del Method 08/06/24 23:20 36.7 C 88 16 126/82 98 Room Air 08/06/24 20:00 Room Air Resident Activity Tracking Resident Involvement: Resident Care Provided Care Provided: OB Delivery
[2024-08-07] MEDS: ACETAMINOPHEN 325 MG TAB PO PRN (08:08)
[2024-08-07 08:43] VITALS: BP 146/90; PULSE 105; TEMP 98.8
[2024-08-07] MEDS: oxyCODONE HCL IR 5 MG TAB (IMMEDIATE RELEASE) PO PRN (11:15)
--- NOTE | 2024-08-09 16:35 | Discharge Summary ---
Date of Service Day of admission: 08/04/24 Gagan of discharge: August 07, 2024 Admission HPI Per Admitting Provider 28yo at 35 0/7 wks glenis presents to from office with elevated bps. Patient with background CHTN and now preeclampsia. Max dosing of procardia xl of 60mg bid and now with elevated bps throught that. No granger or visual change. No ruq pain. She has seen [facility] and their recommendations reviewed. I contacted MFM Dr. Bunn who happened to see her for the consult done on 07/08 and he recommended delivery for now preeclampsia with severe features(due to bps) superimposed on CHTN. PNC c/b 1. CHTN 2. GDM 3. Prior c/s, desires 4. Rh neg PNL rh neg, ri, gbs unknown. OBH: c/s x 1--> severe preeclampsia at 38wks, induction, intol to labor. GYNH: nl paps, no stds Discharge Data Consultations 08/04/24 17:30 Consult Anesthesiology Stat Procedures Performed Operation Date: 08/04/24 19:15 Actual Procedures pRepeat Low Transverse Section in LD(Not Applicable) - Thalia Weber [place] [facility] [place] (1) 35 weeks gestation of : (2) Severe pre-eclampsia: (3) S/P section: (4) PPH ( hemorrhage): Plan Patient met criteria for superimposed severe preeclampsia in background of chtn. She had prior c/s and with unfavorable cervix was recommended to undergo repeat c/s. She underwent procedure and had a pph of 2300cc approximately. See hospital notes for details of that management. Her hgb drifted to 6.2 and she was given 2u prbcs, and subsequent hemoglobin 8.6. She was treated with magnesium sulfate x 24hrs. Her bps were monitored and she was sent home on POD #3 on procardia xl 60mg daily and plan for office bp check on wednesday 08/09. She was given routine discharge instructions and pain meds. Coding Level of Care Code None Diagnoses 35 weeks gestation of Z3A.35 Severe pre-eclampsia O14.10 S/P section Z98.891 PPH ( hemorrhage) O72.1
--- NOTE | 2024-08-11 05:35 | Coding Query ---
ANEMIA To promote full compliance with coding requirements relating to patient care, physician participation is requested in all cases of spinal surgeon uncertainty. Please assist us with the question(s) below: Coding Question(s): The record reflects the following clinical findings: hemorrhage, 2300 cc blood loss,lowest hgb 6.2 and 2 Units Packed Cells administered. If these findings are indicative of anemia, please specify the known or suspected type by placing an "X" within the parenthesis (x). If other, please document type. Examples are: (x ) Acute blood loss anemia ( x) Acute Postoperative blood loss anemia ( ) Acute postoperative anemia due to dilutional fluids ( ) Chronic blood loss anemia ( ) Anemia of chronic disease ( ) Aplastic anemia ( ) Anemia due to renal disease ( ) Anemia in neoplastic disease ( ) Iron deficient anemia ( ) Anemia, unspecified or other ( ) Other: (please specify) Thank you BÁRBARA Cerda CCS
== END 2024-08-07 12:36 | disposition home or self-care (01) | DRG 787 ==
LOC: OPB 16:22 → 4S1 16:26 → 4E2 08-06 06:43